=== PATIENT | male | born 1965 | race Caucasian/White ===

== ENCOUNTER 2021-11-08 17:20 | Inpatient (IN) | payer MEDICARE, SELFPAY ==
[2021-11-08] VITALS (11 sets, daily range): BP systolic 109–146; BP diastolic 75–88; PULSE 64–73; RESP 18–38; TEMP 36.6–37.3; O2SAT 86–93; BMI 45.1; BMI 40.8
--- NOTE | 2021-11-08 17:54 | RAD_ITS ---
STUDY: X-RAY CHEST REASON FOR EXAM: Male, 56 years old. CHEST PAIN sob TECHNIQUE: XR Chest 1 View COMPARISON: Prior comparison studies are not available for review at this time. FINDINGS: There are bilateral pleural effusions. There are bilateral infiltrates. Normal size heart. Normal mediastinum and shiv. Normal visualized pulmonary arteries. Normal visualized aortic arch and descending thoracic aorta. There are diffuse degenerative changes of the visualized thoracic spine. There is degenerative osteoarthritis of the bilateral shoulders. There is no demonstrated abnormality of the visualized soft tissue structures of the upper abdomen. RAD/Chest 1 View (Portable) IMPRESSION: Bilateral pneumonia. Electronically Signed: Kenneth Eaton MD at 19:35 EST , Service support ,
--- NOTE | 2021-11-08 17:54 | EKG12_ITS ---
Test Reason : SOB Blood Pressure : / mmHG Vent. Rate : 072 BPM Atrial Rate : 072 BPM P-R Int : 156 ms QRS Dur : 156 ms QT Int : 438 ms P-R-T Axes : 015 -26 -18 degrees QTc Int : 479 ms Normal sinus rhythm Right bundle branch block Voltage criteria for left ventricular hypertrophy Abnormal ECG Confirmed by SRIDHAR RAGLAND, JOSE MIGUEL ([id number]), department editor ROCK RYAN ([id number]) on 11/11/2021 9:19:49 AM Referred By: MIRANDA Confirmed By:JOSE MIGUEL WALLER MD
--- NOTE | 2021-11-08 17:55 | EX.ED.DYSGE1 ---
HPI History of Present Illness Chief Complaint: Shortness of Breath Informant: patient Narrative Narrative: Patient reports going to his PCPs office today for routine checkup. He does report having a head cold for the past 3 weeks. When at his doctor's office he was noted to be hypoxic and patient was transferred here for evaluation by marianna. He was satting 86% on room air here, 90% on 3 L nasal cannula. He has had a mild cough with brown-colored sputum production. No fever or chills. He denies chest pain. He denies any known Covid exposures and states he did not get the Covid vaccine. [facility] Medical History Arthritis Hay fever HTN (hypertension) Home Medications lisinopril 10 mg-hydrochlorothiazide 12.5 mg tablet 1 tab PO BID 12/14/17 [History Last Taken Unknown] Allergy/AdvReac Type Severity Reaction Status Date / Time grass pollen Allergy Unknown Verified 11/09/21 00:19 tree and shrub pollen Allergy Unknown Verified 11/09/21 00:19 Social History Smoking Status: Never smoker alcohol intake: never ROS ROS ED Constitutional Constitutional ED: Denies chills or fever(s) Eyes Eyes: Denies change in vision ENT ENT ED: Reports other Details: Congestion ; Denies sore throat Cardiovascular Cardiovascular: Denies chest pain Respiratory/Chest Respiratory/Chest: Reports cough, dyspnea and sputum Gastrointestinal Gastrointestinal: Denies abdominal pain, diarrhea, nausea or vomiting Genitourinary Genitourinary ED: Denies dysuria Musculoskeletal Musculoskeletal: Denies back pain Integumentary Denies rash Neurologic Neurologic: Denies headache(s) or weakness Allergic/Immunologic Allergic/Immunologic ED: Denies urticaria EXAM Physical Exam Const Vital Signs: 11/08/21 17:20 11/08/21 18:04 11/08/21 19:52 Temperature 98.2 F Temperature Source Oral Pulse Rate 73 72 Respiratory Rate 18 38 H Respiratory Effort Short of Breath Respiratory Pattern Tachypnea Blood Pressure 146/88 H 130/87 H Blood Pressure Mean 107 101 Pulse Ox 86 92 91 Oxygen Delivery Method Room Air Nasal Cannula Nasal Cannula Oxygen Flow Rate (L/min) 2 6 11/08/21 19:56 11/08/21 19:57 11/08/21 21:00 Temperature Temperature Source Pulse Rate 70 64 Respiratory Rate 26 H 26 H Respiratory Effort Respiratory Pattern Blood Pressure 131/83 H 121/82 H Blood Pressure Mean 99 95 Pulse Ox 91 92 91 Oxygen Delivery Method High Flow High Flow High Flow Oxygen Flow Rate (L/min) 8 8 8 Positive obese Nutritional Appearance: obese HEENT Reports moist mucous membranes Eyes PERRL and EOMs intact bilaterally Neck supple Chest Wall inspection of chest normal and palpation of chest normal Resp Resp Narrative: Tachypnea Auscultation: diminished lung sounds Cardio regular rate and regular rhythm GI non-tender Palpation: soft Extremity normal to inspection General Extremety ED: Negative for edema General Extremity: Negative for edema Neuro oriented x3 Sensorium / Orientation: alert Skin no rashes or lesions noted MDM MDM MDM Narrative Medical decision making narrative: Patient is on 3 L nasal cannula time of my initial exam. Chest x-ray, EKG, lab work, rapid Covid test obtained. Lab Data Attestation: I reviewed the patient's lab results. Labs: Laboratory Results - last 24 hr 11/08/21 11/08/21 11/08/21 17:55 17:55 17:55 WBC 7.8 RBC 5.11 Hgb 14.2 Hct 42.1 MCV 82.4 MCH 27.8 MCHC 33.7 RDW Std Deviation 37.1 RDW Coeff of Ifeoma 12.2 Plt Count 280 MPV 8.8 Immature Gran % (Auto) 4.900 H Neut % (Auto) 83.1 H Lymph % (Auto) 7.4 L [place] % (Auto) 4.2 Eos % (Auto) 0.0 Baso % (Auto) 0.4 Absolute Neuts (auto) 6.5 Absolute Lymphs (auto) 0.58 L Nucleated RBC % 0 Differential Comment SEE COMMENT Atypical Lymphocytes RARE Platelet Estimate ADEQUATE RBC Morphology N CHROM Anisocytosis RARE D-Dimer Quant (PE/DVT) 5.26 H* Sodium 134 L Potassium 3.6 Chloride 100 Carbon Dioxide 26.0 Anion Gap 8 BUN 15 Creatinine 0.71 Estim Creat Clear Calc 125.21 Est GFR (MDRD) Af Amer 148 Est GFR (MDRD) Non-Af 122 BUN/Creatinine Ratio 21.2 H Glucose 120 H Lactic Acid Calcium 8.6 Total Bilirubin 0.70 Direct Bilirubin 0.33 H AST 57 H ALT 29 Alkaline Phosphatase 69 Troponin I High Sens 14 Total Protein 7.4 Albumin 2.5 L Globulin 4.9 H COVID-19 (BOGDAN) 11/08/21 11/08/21 17:55 19:14 WBC RBC Hgb Hct MCV MCH MCHC RDW Std Deviation RDW Coeff of Ifeoma Plt Count MPV Immature Gran % (Auto) Neut % (Auto) Lymph % (Auto) [place] % (Auto) Eos % (Auto) Baso % (Auto) Absolute Neuts (auto) Absolute Lymphs (auto) Nucleated RBC % Differential Comment Atypical Lymphocytes Platelet Estimate RBC Morphology Anisocytosis D-Dimer Quant (PE/DVT) Sodium Potassium Chloride Carbon Dioxide Anion Gap BUN Creatinine Estim Creat Clear Calc Est GFR (MDRD) Af Amer Est GFR (MDRD) Non-Af BUN/Creatinine Ratio Glucose Lactic Acid 1.4 Calcium Total Bilirubin Direct Bilirubin AST ALT Alkaline Phosphatase Troponin I High Sens Total Protein Albumin Globulin COVID-19 (BOGDAN) Detected Rapid Covid: Negative Radiography Chest X-Ray - ED: 1 View, Read by ED Physician, Right Infiltrate and Left Infiltrate Diagnostic Testing: Clinical Impression(s) from Imaging Studies Chest X-Ray 11/08/21 17:54 IMPRESSION: Bilateral pneumonia. Electronically Signed: Kenneth Eaton MD at 19:35 EST , Service support , Chest CTA 11/08/21 19:04 IMPRESSION: 1. No demonstrated pulmonary embolism or arterial dissection. 2. There is bilateral pneumonia. Electronically Signed: Kenneth Eaton MD at 20:04 EST , Service support , EKG Initial EKG: Attestation: I personally reviewed and interpreted this EKG as follows: Interpretation: Sinus Rhythm (Sinus at 72 with right bundle branch block. No acute ischemia.) Treatment and Re-Evaluation Comments:: Patient's lab work reviewed. White count is normal. D-dimer elevated at 5.26. Chemistry studies unremarkable. Lactic acid normal at 1.4. Chest x-ray reveals significant bilateral infiltrates. Although rapid Covid test came back negative I am still suspicious this is Covid. PCR test is sent. CTA of the chest reveals bilateral pneumonia with no evidence of PE. Patient discussed with hospitalist for admission. He is currently requiring 8 L nasal cannula to maintain his O2 sats above 90%. Just before going to the floor patient's Covid test does return positive. Discharge Plan Dx/Rx/DC Orders Clinical Impression: Pneumonia, Respiratory failure, COVID-19 Disposition Disposition: Acute Care Hospital [facility] Discharge Date/Time: 11/08/21 22:42
[2021-11-08 18:12] LABS: Absolute Lymphocyte Count 0.58 X10^3/uL (0.83-4.51); Absolute Neutrophil Count 6.5 X10^3/uL (2.0-7.7); Basophil# 0.03 X10^3/uL; Basophil% 0.4 % (0-1); Hematocrit 42.1 % (40-54); Hemoglobin 14.2 g/dL (13.0-16.5); Lymphocyte # 0.58 X10^3/ul (0.83-4.51); Lymphocyte % 7.4 % (19-41); Mean Corp Hgb Conc 33.7 g/dL (32-36); Mean Corpuscular Hgb 27.8 pg (27.0-32.0); Mean Corpuscular Volume 82.4 fL (80-94); Mean Platelet Vol. 8.8 fl (6.2-12.0); Monocyte# 0.33 X10^3/uL; Monocyte% 4.2 % (0-10); NRBC Flagged by Analyzer 0 % (0-5); Neutrophil # 6.49 X10^3/uL (2.7-7.7); Neutrophil % 83.1 % (47-70); POSITIVE DIFFERENTIAL YES; POSITIVE MORPHOLOGY YES; Platelet Count 280 K/mm3 (150-450); RBC Distribution Width CV 12.2 % (11.6-14.6); RBC Distribution Width SD 37.1 fl (35.1-43.9); Red Blood Count 5.11 M/mm3 (4.6-6.2); White Blood Count 7.8 K/mm3 (4.4-11.0)
[2021-11-08 18:25] LABS: Differential Indicated SCAN CRITERIA MET
[2021-11-08 18:29] LABS: AST(SGOT) 57 U/L (15-37); Alanine Aminotransfer ALT/SGPT 29 U/L (16-61); Albumin, Serum 2.5 g/dL (3.2-5.0); Alkaline Phosphatase 69 U/L (45-117); Anion Gap 8 (5-15); BUN 15 mg/dL (7-18); BUN/Creat Ratio 21.2 RATIO (10-20); Bilirubin, Direct 0.33 mg/dL (0.00-0.30); Calcium,Total 8.6 mg/dL (8.5-10.1); Chloride 100 mmol/L (98-107); Creatinine, Serum 0.71 mg/dL (0.70-1.30); EST Glomerular Filtration Rate 122 mL/min (>60); Est Glom Filt Rate - Afr Amer 148 mL/min (>60); Estimated Creatinine Clearance 125.21 ml/min; Globulin 4.9 g/dL (2.2-4.2); Glucose 120 mg/dL (74-106); Potassium 3.6 mmol/L (3.5-5.1); Protein, Total 7.4 g/dL (6.4-8.2); Sodium Level 134 mmol/L (136-145); Troponin-I HS 14 pg/mL (3.0-78.0)
[2021-11-08 18:42] LABS: Anisocytosis RARE; Atypical Lymphocyte RARE %; Platelet Estimate ADEQUATE (ADEQ); Red Cell Morphology N CHROM NORMAL (NORM C&C)
[2021-11-08 18:43] LABS: Lactic Acid 1.4 mmol/L (0.4-1.9)
[2021-11-08 19:03] LABS: D-Dimer Quantitative (DVT/PE) 5.26 FEU/ug/m (0.27-0.49)
--- NOTE | 2021-11-08 19:04 | CT_ITS ---
EXAM: CT ANGIOGRAPHY CHEST WITHOUT AND WITH INTRAVENOUS CONTRAST CLINICAL INDICATION: hypoxia TECHNIQUE: Helically acquired angiography images were obtained of the chest without and with intravenous contrast. This CT exam was performed using one or more of the following dose reduction techniques: automated exposure control, adjustment of the mA and/or kV according to patient size, and/or use of iterative reconstruction technique. This report was created using [employer] report generation technology. MIP reconstructed images were created and reviewed. CONTRAST: IV 100mL [id number] COMPARISON: None. FINDINGS: PULMONARY ARTERIES: No demonstrated pulmonary embolism or arterial dissection. AORTA: Unremarkable. Normal in caliber. No evidence of dissection. GREAT VESSELS OF AORTIC ARCH: Unremarkable. Normal in caliber. No evidence of dissection. LUNGS AND PLEURAL SPACES: There is bilateral pneumonia. No mass. No pleural effusion or thickening. HEART: Unremarkable. Heart size is normal. No pericardial effusion. No signs of right heart strain, ratio of right ventricle to left ventricle measures less than 1. MEDIASTINUM: Unremarkable. No mediastinal or hilar adenopathy. Esophagus is unremarkable. No hiatal hernia. THYROID: Unremarkable. No thyroid lesions. BONES/JOINTS: There are degenerative findings of the thoracic spine. No suspicious lytic or blastic abnormality. KIDNEYS AND URETERS: Simple cyst of the left kidney. No follow-up required. CT/CTA Chest W/WO Contrast IMPRESSION: 1. No demonstrated pulmonary embolism or arterial dissection. 2. There is bilateral pneumonia. Electronically Signed: Kenneth Eaton MD at 20:04 EST , Service support ,
--- NOTE | 2021-11-08 21:13 | PCM.HP.STD ---
HPI - General HPI Narrative PIERRE CUEVAS, is a 56 M who presents to the emergency room sent by squad from my office due to hypoxia. Patient had an appointment with me at 430 this afternoon and was requesting at that time to be released to return to work after having cold symptoms for the past 2 to 3 weeks. The patient is unvaccinated to COVID-19 virus and denied feeling fever or chills, chest pain or shortness of breath at the time I evaluated him. His pulse ox saturation on room air was 81% and would only come up to 87% with 4 L by nasal cannula. This surprised the patient however we agreed to transport him by squad since he had driven himself to my office. Upon arrival in the emergency room he was found also to be hypoxic despite nasal oxygen and chest x-ray revealed bilateral pneumonia consistent with COVID-19 virus. Initial rapid assay was negative however, a PCR test is pending at the time of my evaluation. Further history reveals the patient did lose taste and smell several days ago but states it had returned. The patient remains confused by all of this since he does not feel very short of breath at the present time. The patient is also concerned since he does not have health insurance at this time. [facility] Medical History Arthritis Hay fever HTN (hypertension) Home Medications lisinopril 10 mg-hydrochlorothiazide 12.5 mg tablet 1 tab PO BID 12/14/17 [History Last Taken Unknown] Allergy/AdvReac Type Severity Reaction Status Date / Time grass pollen Allergy Unknown Verified 12/14/17 06:35 tree and shrub pollen Allergy Unknown Verified 12/14/17 06:35 Social History Smoking Status: Never smoker alcohol intake: never ROS Constitutional Constitutional: Denies chills, fever(s) or weakness Eyes Eyes: Denies blurry vision ENT HEENT: Reports loss taste/smell; Denies abnormal hearing Cardiovascular Cardiovascular: Denies chest pain Respiratory/Chest Respiratory/Chest: Reports shortness of breath with exertion and wheezing Gastrointestinal Gastrointestinal: Denies abdominal pain Genitourinary Genitourinary: Denies dysuria Musculoskeletal Musculoskeletal: Denies back pain Neurologic Neurologic: Denies abnormal gait Psychiatric Psychiatric: Reports anxiety Vital Signs Vital Signs Vital Signs: 11/08/21 17:20 11/08/21 18:04 11/08/21 19:52 Temperature 98.2 F Temperature Source Oral Pulse Rate 73 72 Respiratory Rate 18 38 H Respiratory Effort Short of Breath Respiratory Pattern Tachypnea Blood Pressure 146/88 H 130/87 H Blood Pressure Mean 107 101 Pulse Ox 86 92 91 Oxygen Delivery Method Room Air Nasal Cannula Nasal Cannula Oxygen Flow Rate (L/min) 2 6 11/08/21 19:56 11/08/21 19:57 Temperature Temperature Source Pulse Rate 70 Respiratory Rate 26 H Respiratory Effort Respiratory Pattern Blood Pressure 131/83 H Blood Pressure Mean 99 Pulse Ox 91 92 Oxygen Delivery Method High Flow High Flow Oxygen Flow Rate (L/min) 8 8 Weight Weight: 323 lb 6.69 oz Body Mass Index (BMI) 45.1 Physical Exam Const alert, oriented x3 and no apparent distress General Appearance: cooperative HEENT normocephalic and head/scalp atraumatic Eyes PERRL and EOMs intact bilaterally Neck supple Lymph Lymphatic: no lymphadenopathy noted Resp Auscultation: diminished lung sounds Cardio regular rate, regular rhythm, S1 normal heart sound and S2 normal heart sound Rate: tachycardic GI normal to inspection, nondistended, normoactive bowel sounds Extremity no clubbing, cyanosis or edema Skin General Skin Exam: turgor normal Neuro CN's II-XII intact bilaterally Psych affect normal Results Lab / Micro Data Result Diagrams: 11/08/21 17:55 11/08/21 17:55 Labs: Laboratory Results - last 24 hr 11/08/21 17:55: WBC 7.8, RBC 5.11, Hgb 14.2, Hct 42.1, MCV 82.4, MCH 27.8, MCHC 33.7, RDW Std Deviation 37.1, RDW Coeff of Ifeoma 12.2, Plt Count 280, MPV 8.8, Immature Gran % (Auto) 4.900 H, Neut % (Auto) 83.1 H, Lymph % (Auto) 7.4 L, [place] % (Auto) 4.2, Eos % (Auto) 0.0, Baso % (Auto) 0.4, Absolute Neuts (auto) 6.5, Absolute Lymphs (auto) 0.58 L, Nucleated RBC % 0, Differential Comment SEE COMMENT, Atypical Lymphocytes RARE, Platelet Estimate ADEQUATE, RBC Morphology N CHROM, Anisocytosis RARE 11/08/21 17:55: D-Dimer Quant (PE/DVT) 5.26 H* 11/08/21 17:55: Sodium 134 L, Potassium 3.6, Chloride 100, Carbon Dioxide 26.0, Anion Gap 8, BUN 15, Creatinine 0.71, Estim Creat Clear Calc 125.21, Est GFR (MDRD) Af Amer 148, Est GFR (MDRD) Non-Af 122, BUN/Creatinine Ratio 21.2 H, Glucose 120 H, Calcium 8.6, Total Bilirubin 0.70, Direct Bilirubin 0.33 H, AST 57 H, ALT 29, Alkaline Phosphatase 69, Troponin I High Sens 14, Total Protein 7.4, Albumin 2.5 L, Globulin 4.9 H 11/08/21 17:55: Lactic Acid 1.4 Micro: Microbiology 11/08/21 17:55 Nasal Secretion SARS-CoV-2 Antigen (Rapid) - Final Radiology Impression Chest X-Ray 11/08/21 17:54 IMPRESSION: Bilateral pneumonia. Electronically Signed: Kenneth Eaton MD at 19:35 EST , Service support , Chest CTA 11/08/21 19:04 IMPRESSION: 1. No demonstrated pulmonary embolism or arterial dissection. 2. There is bilateral pneumonia. Electronically Signed: Kenneth Eaton MD at 20:04 EST , Service support , Assessment & Plan Assessment/Plan (1) Pneumonia: (2) Respiratory failure: PLAN: 1 pneumonia?admit patient to general medical floor suspect COVID-19 due to x-ray pattern, PCR is pending rapid test was negative. Repeat CBC BMP in the morning. If PCR test returns negative would start IV antibiotics to cover bacterial causes of pneumonia. We will continue patient in isolation for no. At this point I will not order further broad range testing as clinically the patient is stable and he does not have insurance and did not wish to further his financial burden. 2. Respiratory failure?continue oxygen supportive therapy at this time, proair inhaler every 4 hours as needed shortness of breath and will start Decadron 3. DVT prophylaxis?low molecular weight heparin Charges/Coding Visit Charges Inpatient E&M: 52827 Init Hosp L3
[2021-11-08] MEDS: dexAMETHasone 2 MG TABLET 6 MG PO (23:27)
[2021-11-08] MEDS: Enoxaparin 40 MG/0.4 ML Syringe SC (23:27)
[2021-11-09] VITALS (17 sets, daily range): BP systolic 117–142; BP diastolic 76–86; PULSE 59–88; RESP 18–20; TEMP 36.4–36.6; O2SAT 2–96
--- NOTE | 2021-11-09 02:02 | NURSING ---
Pt encourage to roll from side to side or prone. Pt says he understands but when this nurse comes to room. Pt is on his back.
[2021-11-09 07:25] LABS: Absolute Lymphocyte Count 0.54 X10^3/uL (0.83-4.51); Absolute Neutrophil Count 6.3 X10^3/uL (2.0-7.7); Basophil# 0.02 X10^3/uL; Basophil% 0.3 % (0-1); Hemoglobin 13.5 g/dL (13.0-16.5); Lymphocyte # 0.54 X10^3/ul (0.83-4.51); Lymphocyte % 7.4 % (19-41); Mean Corp Hgb Conc 33.8 g/dL (32-36); Mean Corpuscular Volume 82.8 fL (80-94); Mean Platelet Vol. 9.1 fl (6.2-12.0); Monocyte# 0.23 X10^3/uL; Monocyte% 3.1 % (0-10); NRBC Flagged by Analyzer 0 % (0-5); Neutrophil # 6.31 X10^3/uL (2.7-7.7); Neutrophil % 86.1 % (47-70); POSITIVE DIFFERENTIAL YES; POSITIVE MORPHOLOGY YES; Platelet Count 244 K/mm3 (150-450); RBC Distribution Width CV 12.2 % (11.6-14.6); RBC Distribution Width SD 37.1 fl (35.1-43.9); Red Blood Count 4.83 M/mm3 (4.6-6.2); White Blood Count 7.3 K/mm3 (4.4-11.0)
[2021-11-09 07:32] LABS: Differential Indicated SCAN CRITERIA MET
[2021-11-09 07:54] LABS: Anion Gap 6 (5-15); BUN 14 mg/dL (7-18); BUN/Creat Ratio 19.1 RATIO (10-20); Calcium,Total 8.3 mg/dL (8.5-10.1); Chloride 100 mmol/L (98-107); Creatinine, Serum 0.73 mg/dL (0.70-1.30); EST Glomerular Filtration Rate 118 mL/min (>60); Est Glom Filt Rate - Afr Amer 142 mL/min (>60); Estimated Creatinine Clearance 129.21 ml/min; Glucose 144 mg/dL (74-106); Potassium 3.9 mmol/L (3.5-5.1); Sodium Level 136 mmol/L (136-145)
[2021-11-09 08:46] LABS: Differential Comment SCANNED; Reactive Lymphocyte 1+
[2021-11-09] MEDS: Lisinopril 10 MG Tablet PO ×2 (08:47→19:57)
[2021-11-09] MEDS: Enoxaparin 40 MG/0.4 ML Syringe SC (08:47)
[2021-11-09] MEDS: hydroCHLOROthiazide 12.5mg 12.5 MG PO ×2 (08:47→19:57)
[2021-11-09] MEDS: dexAMETHasone 2 MG TABLET 6 MG PO (08:47)
--- NOTE | 2021-11-09 12:54 | PN.HOSP_ITS ---
Documented by User: Pierre BRAY 11/09/21 13:01 Subjective Subjective Patient is a 56-year-old male comfortably resting in bed, alert and orient x3. Patient reports slight improvement in shortness of breath for admission, although still on air Vo. Denies development of any new symptoms overnight. Does not appear in acute distress. Objective Data Objective Data Vital Signs: Vital Signs Temp Pulse Resp BP Pulse Ox 97.6 F L 67 18 142/82 H 90 11/09/21 07:58 11/09/21 11:55 11/09/21 07:58 11/09/21 07:58 11/09/21 11:24 Oxygen Flow Rate (L/min) 55 Oxygen Delivery Method Airvo Weight: 309 lb 15.519 oz Body Mass Index (BMI) 40.8 Intake & Output: Intake and Output for Last 24 Hours 11/07/21 11/08/21 11/09/21 23:59 23:59 23:59 Intake Total 240 / 240 Balance 240 / 240 Medical Nutrition Assessment Dietitian: Malnutrition Criteria Met Start: 11/09/21 12:51 Freq: Status: Active Protocol: Document 11/09/21 12:51 AG (Rec: 11/09/21 12:51 AG [id number]) Nutrition Malnutrition Evidence of Malnutrition Exists Yes Malnutrition (moderate): Acute Illness/Injury Evidenced By Suboptimal Energy Intake ( Moderate),Weight Loss ( Moderate) Clinical Problem Acute Disease or Injury Related Malnutrition Etiology moderate, acute malnutrition r /t inadequate energy intake d/ t COVID illness Signs/Symptoms as evidenced by estimated PO intake meeting <75% of estimated energy needs >1 week , unintentional 11#/3.4% wt loss x 2 weeks Status Active Problem Recommendation Dietitian Recommendations/Changes continue regular diet as tolerated; ensure compact w/ meals if PO intake declines Lab / Micro Data Result Diagrams: 11/09/21 07:10 11/09/21 07:10 Labs: Laboratory Results - last 24 hr 11/08/21 17:55: WBC 7.8, RBC 5.11, Hgb 14.2, Hct 42.1, MCV 82.4, MCH 27.8, MCHC 33.7, RDW Std Deviation 37.1, RDW Coeff of Ifeoma 12.2, Plt Count 280, MPV 8.8, Immature Gran % (Auto) 4.900 H, Neut % (Auto) 83.1 H, Lymph % (Auto) 7.4 L, [place] % (Auto) 4.2, Eos % (Auto) 0.0, Baso % (Auto) 0.4, Absolute Neuts (auto) 6.5, Absolute Lymphs (auto) 0.58 L, Nucleated RBC % 0, Differential Comment SEE COMMENT, Atypical Lymphocytes RARE, Platelet Estimate ADEQUATE, RBC Morphology N CHROM, Anisocytosis RARE 11/08/21 17:55: D-Dimer Quant (PE/DVT) 5.26 H* 11/08/21 17:55: Sodium 134 L, Potassium 3.6, Chloride 100, Carbon Dioxide 26.0, Anion Gap 8, BUN 15, Creatinine 0.71, Estim Creat Clear Calc 125.21, Est GFR (MDRD) Af Amer 148, Est GFR (MDRD) Non-Af 122, BUN/Creatinine Ratio 21.2 H, Glucose 120 H, Calcium 8.6, Total Bilirubin 0.70, Direct Bilirubin 0.33 H, AST 57 H, ALT 29, Alkaline Phosphatase 69, Troponin I High Sens 14, Total Protein 7.4, Albumin 2.5 L, Globulin 4.9 H 11/08/21 17:55: Lactic Acid 1.4 11/08/21 19:14: COVID-19 (BOGDAN) Detected 11/09/21 07:10: WBC 7.3, RBC 4.83, Hgb 13.5, Hct 40.0, MCV 82.8, MCH 28.0, MCHC 33.8, RDW Std Deviation 37.1, RDW Coeff of Ifeoma 12.2, Plt Count 244, MPV 9.1, Immature Gran % (Auto) 3.100 H, Neut % (Auto) 86.1 H, Lymph % (Auto) 7.4 L, [place] % (Auto) 3.1, Eos % (Auto) 0.0, Baso % (Auto) 0.3, Absolute Neuts (auto) 6.3, Absolute Lymphs (auto) 0.54 L, Nucleated RBC % 0, Differential Comment SCANNED, Reactive Lymphocytes 1+ 11/09/21 07:10: Sodium 136, Potassium 3.9, Chloride 100, Carbon Dioxide 30.0, Anion Gap 6, BUN 14, Creatinine 0.73, Estim Creat Clear Calc 129.21, Est GFR (MDRD) Af Amer 142, Est GFR (MDRD) Non-Af 118, BUN/Creatinine Ratio 19.1, Glucose 144 H, Calcium 8.3 L Micro: Microbiology 11/08/21 17:55 Nasal Secretion SARS-CoV-2 Antigen (Rapid) - Final Radiography Diagnostic Testing: Radiology Impression Chest X-Ray 11/08/21 17:54 IMPRESSION: Bilateral pneumonia. Electronically Signed: Kenneth Eaton MD at 19:35 EST , Service support , Chest CTA 11/08/21 19:04 IMPRESSION: 1. No demonstrated pulmonary embolism or arterial dissection. 2. There is bilateral pneumonia. Electronically Signed: Kenneth Eaton MD at 20:04 EST , Service support , Physical Exam Const alert, oriented x3 and no apparent distress HEENT head/scalp atraumatic and moist oral mucous membranes Head and Scalp: normocephalic Eyes PERRL, EOMs intact bilaterally and conjunctivae normal Neck no lymphadenopathy, supple and no JVD Resp Resp Narrative: Satting 90% on air-vo at 50 L/min Effort and Inspection: labored Auscultation: wheezes Cardio regular rate, regular rhythm, no murmurs and no JVD GI normal to inspection, nondistended, normoactive bowel sounds, soft to palpation and non-tender Extremity normal to inspection, full ROM and no clubbing, cyanosis or edema Skin no rashes or lesions noted, no wounds, skin turgor normal and no jaundice Neuro CN's II-XII intact bilaterally Psych affect normal Assessment & Plan Assessment/Plan (1) COVID-19: (2) Respiratory failure: PLAN: Day 1 Discharge planning: Patient to be discharged home when medically ready. 1) acute hypoxic respiratory failure secondary to COVID-19 infection Patient still requiring air Vo at 50 L/min to set at 90%, patient does report slight improvement in shortness of breath. Covid PCR is positive. CTA does not demonstrate any evidence of PE or arterial dissection, but does show bilateral pneumonia consistent with COVID-19 infection. Viral respiratory panel negative. Blood cultures ordered/pending. Patient is unvaccinated. Patient not initiated on remdesivir due to length of infection. Plan; continue Decadron, continue oxygen supplementation via air Vo, wean oxygen as tolerated. 2) HTN Stable, continue lisinopril and hydrochlorothiazide. DVT prophylaxis - Lovenox Patient seen by Pierre Salas PA-C, under the supervision of Dr. Sigala. Documented by User: Dr. Davion Sigala MD 11/09/21 13:37 Objective Data Lab / Micro Data Result Diagrams: 11/09/21 07:10 11/09/21 07:10 Assessment & Plan Addt'l Comments This patient was seen in conjunction with Pierre Salas PA-C. I have independently interviewed and examined the patient and reviewed pertinent historical, laboratory, and other data. Please refer to Pierre Salas PA-C's note for details of this patient's presentation, findings, and recommendations. I have reviewed Pierre Salas PA-C's note and concur with documented findings. In brief, patient is a 56-year-old gentleman unvaccinated against COVID-19 presented with progressive shortness of breath. An assessment of acute hypoxic respiratory failure secondary to COVID-19 pneumonia made admitted to a monitored bed for subsequent management Physical Examination: GENERAL: Dyspneic at rest HEENT: Atraumatic; EYES; Anicteric, Normal Conjunctiva NECK; supple, normal thyroid, RESPIRATORY: Diminished to auscultation CARDIOVASCULAR: Regular S1 S2, GI: soft, normoactive bowel sounds, : No Renal angle tenderness; EXTREMITIES: No edema, no clubbing, MUSCULOSKELETAL: no muscle waisting NEURO: Awake; no lateralizing signs. SKIN: No Rash PSYCH; Flat affect Assessment: 1. Acute hypoxic respiratory failure 2. COVID-19 pneumonia 3. Essential potential 4. Obesity with BMI of 40.9 5. DVT prophylaxis Recommendations: 1. I have discussed the results of my overview and impressions with the patient 2. Options for management were reviewed Charges/Coding Visit Charges Inpatient E&M: 75135 Subs Hosp L3
--- NOTE | 2021-11-09 15:00 | CASEMGMT ---
RN CM Assessment: Face to Face with patient for initial transition planning/care coordination assessment. Patient alert and oriented, sitting up in chair with AirVo in place, no apparent distress. CCM introduced self and role at [facility]. Care providers, pharmacy, and demographics verified. PCP: [facility] Specialists: None [facility] Insurance: Self pay. Message left with Patient [employer] to add patient to uninsured COVID list. Prescription Benefit: no Living Will/HPOA: Patient does not have LW or HPOA. LNOK: Significant other- Amanda Cee Living Arrangements: Patient lives with girlfriend of 15 years in two story house with 4 steps to enter with railing. Patient states independent with ADLs prior to hospitalization. 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 Social: former smoker (quit over 10 years ago), denies ETOH use Transportation: Patient drives self and denies needs with transportation. DME/HHC: Patient has walker and cane in home that used to belong to mother. Patient ambulates without assistive device. Denies other DME in home. Denies previous HHC or SNF stays. Patient first tested positive for COVID at [facility] on 11/08. Reports has had cold-like symptoms x 3 weeks. Live-in girlfriend, Amanda, is not ill but will quarantine. Patient states he has a friend that would be available to bring groceries to home. Patient has no preference for DME company if home oxygen needed at discharge. Pt states no concerns with going home at time of dc. Pt states no further concerns/needs. CM to follow. Advised pt to ask CM if any further question/concerns/needs arise, voices understanding. Plan: home
[2021-11-09] MEDS: INHALER, ASSIST DEVICES 1 EACH SPACER INHALATION (19:58)
--- NOTE | 2021-11-09 20:45 | NURSING ---
pT LAYING ON LEFT SIDE 02 AT 12LNC . iNCREASED 02 TO 14L. wILL MONITOR
[2021-11-10] VITALS (25 sets, daily range): BP systolic 76–126; BP diastolic 39–75; PULSE 55–68; RESP 20–40; TEMP 35.6–36.9; O2SAT 82–98
--- NOTE | 2021-11-10 01:04 | NURSING ---
This RN taking over care of pt at this time. Report received from Rita [facility].
--- NOTE | 2021-11-10 01:05 | PCS.PANDOC ---
PANDEMIC DOCUMENTATION INITIATED: Date: 06/28/2021 Time: 190
[2021-11-10 06:32] LABS: Absolute Lymphocyte Count 0.76 X10^3/uL (0.83-4.51); Absolute Neutrophil Count 8.7 X10^3/uL (2.0-7.7); Basophil# 0.02 X10^3/uL; Basophil% 0.2 % (0-1); Eosinophil# 0.01 X10^3/uL; Eosinophils% 0.1 % (0-5); Hemoglobin 13.1 g/dL (13.0-16.5); Lymphocyte # 0.76 X10^3/ul (0.83-4.51); Lymphocyte % 7.3 % (19-41); Mean Corp Hgb Conc 33.6 g/dL (32-36); Mean Corpuscular Hgb 27.9 pg (27.0-32.0); Mean Corpuscular Volume 83.2 fL (80-94); Mean Platelet Vol. 9.1 fl (6.2-12.0); Monocyte# 0.41 X10^3/uL; Monocyte% 3.9 % (0-10); NRBC Flagged by Analyzer 0 % (0-5); Neutrophil % 83.9 % (47-70); Platelet Count 295 K/mm3 (150-450); RBC Distribution Width CV 12.3 % (11.6-14.6); RBC Distribution Width SD 36.8 fl (35.1-43.9); Red Blood Count 4.69 M/mm3 (4.6-6.2); White Blood Count 10.4 K/mm3 (4.4-11.0)
[2021-11-10 06:55] LABS: ALB/GLOB Ratio 0.5 RATIO (0.9-2.4); AST(SGOT) 52 U/L (15-37); Alanine Aminotransfer ALT/SGPT 34 U/L (16-61); Albumin, Serum 2.3 g/dL (3.2-5.0); Alkaline Phosphatase 60 U/L (45-117); Anion Gap 10 (5-15); BUN 22 mg/dL (7-18); BUN/Creat Ratio 28.6 RATIO (10-20); Calcium,Total 8.2 mg/dL (8.5-10.1); Chloride 96 mmol/L (98-107); Creatinine, Serum 0.77 mg/dL (0.70-1.30); EST Glomerular Filtration Rate 111 mL/min (>60); Est Glom Filt Rate - Afr Amer 135 mL/min (>60); Globulin 4.7 g/dL (2.2-4.2); Glucose 122 mg/dL (74-106); Magnesium 2.8 mg/dL (1.6-2.6); Potassium 3.5 mmol/L (3.5-5.1); Sodium Level 133 mmol/L (136-145)
[2021-11-10] MEDS: dexAMETHasone 2 MG TABLET 6 MG PO (08:11)
[2021-11-10] MEDS: Enoxaparin 40 MG/0.4 ML Syringe SC (08:12)
[2021-11-10] MEDS: hydroCHLOROthiazide 12.5mg 12.5 MG PO ×2 (08:12→22:07)
--- NOTE | 2021-11-10 12:04 | PN.HOSP_ITS ---
Documented by User: Pierre BRAY 11/10/21 12:44 Subjective Subjective Patient is a 56-year-old male comfortably resting in a chair, alert and orient x3. Patient still requiring airvo at 50 L/min to maintain oxygen saturations. Denies development of any new symptoms overnight. Does not appear in acute distress. Objective Data Objective Data Vital Signs: Vital Signs Temp Pulse Resp BP Pulse Ox 98.4 F 66 20 H 103/75 94 11/10/21 08:00 11/10/21 08:00 11/10/21 08:00 11/10/21 08:00 11/10/21 08:00 Oxygen Flow Rate (L/min) 50 Oxygen Delivery Method Airvo Weight: 309 lb 15.519 oz Body Mass Index (BMI) 40.8 Intake & Output: Intake and Output for Last 24 Hours 11/08/21 11/09/21 11/10/21 23:59 23:59 23:59 Intake Total 1360 / 1360 240 / 240 Balance 1360 / 1360 240 / 240 Medical Nutrition Assessment Dietitian: Malnutrition Criteria Met Start: 11/09/21 12:51 Freq: Status: Active Protocol: Document 11/09/21 12:51 AG (Rec: 11/09/21 12:51 AG [id number]) Nutrition Malnutrition Evidence of Malnutrition Exists Yes Malnutrition (moderate): Acute Illness/Injury Evidenced By Suboptimal Energy Intake ( Moderate),Weight Loss ( Moderate) Clinical Problem Acute Disease or Injury Related Malnutrition Etiology moderate, acute malnutrition r /t inadequate energy intake d/ t COVID illness Signs/Symptoms as evidenced by estimated PO intake meeting <75% of estimated energy needs >1 week , unintentional 11#/3.4% wt loss x 2 weeks Status Active Problem Recommendation Dietitian Recommendations/Changes continue regular diet as tolerated; ensure compact w/ meals if PO intake declines Lab / Micro Data Result Diagrams: 11/10/21 06:05 11/10/21 06:05 Labs: Laboratory Results - last 24 hr 11/10/21 06:05: WBC 10.4, RBC 4.69, Hgb 13.1, Hct 39.0 L, MCV 83.2, MCH 27.9, MCHC 33.6, RDW Std Deviation 36.8, RDW Coeff of Ifeoma 12.3, Plt Count 295, MPV 9.1, Immature Gran % (Auto) 4.600 H, Neut % (Auto) 83.9 H, Lymph % (Auto) 7.3 L, [place] % (Auto) 3.9, Eos % (Auto) 0.1, Baso % (Auto) 0.2, Absolute Neuts (auto) 8.7 H, Absolute Lymphs (auto) 0.76 L, Nucleated RBC % 0 11/10/21 06:05: Sodium 133 L, Potassium 3.5, Chloride 96 L, Carbon Dioxide 27.0, Anion Gap 10, BUN 22 H, Creatinine 0.77, Estim Creat Clear Calc 122.50, Est GFR (MDRD) Af Amer 135, Est GFR (MDRD) Non-Af 111, BUN/Creatinine Ratio 28.6 H, Glucose 122 H, Calcium 8.2 L, Magnesium 2.8 H, Total Bilirubin 0.70, AST 52 H, ALT 34, Alkaline Phosphatase 60, Total Protein 7.0, Albumin 2.3 L, Globulin 4.7 H, Albumin/Globulin Ratio 0.5 L Micro: Microbiology 11/08/21 17:55 Nasal Secretion SARS-CoV-2 Antigen (Rapid) - Final Physical Exam Const alert, oriented x3 and no apparent distress HEENT head/scalp atraumatic and moist oral mucous membranes Head and Scalp: normocephalic Eyes PERRL, EOMs intact bilaterally and conjunctivae normal Neck no lymphadenopathy, supple and no JVD Resp Resp Narrative: Requiring air Vo at 50 L/min to maintain oxygen saturations at 90%. Effort and Inspection: respiratory distress and labored Auscultation: diminished lung sounds Cardio regular rate, regular rhythm, no murmurs and no JVD GI normal to inspection, nondistended, normoactive bowel sounds, soft to palpation and non-tender Extremity normal to inspection, full ROM and no clubbing, cyanosis or edema Skin no rashes or lesions noted, no wounds and skin turgor normal Neuro CN's II-XII intact bilaterally Psych affect normal Assessment & Plan Assessment/Plan (1) Respiratory failure: (2) COVID-19: PLAN: Day 2 Discharge planning: Patient to be discharged home when medically ready. 1) acute hypoxic respiratory failure secondary to COVID-19 infection Patient still requiring air Vo at 50 L/min to set at 90%, patient does report slight improvement in shortness of breath. Covid PCR is positive. CTA does not demonstrate any evidence of PE or arterial dissection, but does show bilateral pneumonia consistent with COVID-19 infection. Viral respiratory panel pending. Blood cultures ordered/pending. Patient is unvaccinated. Patient not initiated on remdesivir due to length of infection. Plan; continue Decadron, continue oxygen supplementation via air Vo, wean oxygen as tolerated, pulmonary medicine and infectious disease consult placed. 2) HTN Stable, continue lisinopril and hydrochlorothiazide. 3) hyponatremia Sodium currently 133, likely due to oral intake. Continue to monitor BMP. DVT prophylaxis - Lovenox Patient seen by Pierre Salas PA-C, under the supervision of Dr. Patton. Documented by User: Dr. Mike Patton MD 11/10/21 16:00 Subjective Subjective Patient on air Vo 50% FiO2 heart rate sinus rhythm. Respiratory rate 20 to 30/min Objective Data Lab / Micro Data Result Diagrams: 11/10/21 06:05 11/10/21 06:05 Physical Exam Narrative General: Alert, Oriented x3, Cooperative HEENT: Atraumatic, PERRLA, EOMI, Normocephalic Oral: No Gingival or Mucosal Lesions/ Ulcerations Neck: Supple, No JVD, Negative Carotid Bruits Lungs: Air entry diminished in bilateral lung bases. Bilateral fine expiratory rhonchi Cardiovascular: Regular rate, Regular Rhythm, Normal S1, Normal S2, No murmurs Abdomen: Bowel Sounds Present, Soft, Non Tender, Non-Distended : No renal angle tenderness. No suprapubic tenderness. Extremities: No edema, Capillary Refill Less than 3 Seconds Skin: No rashes, No breakdown Musculoskeletal: No Tenderness to Palpation of Joints or Extremities. ROM full Neurological: Cranial nerves II-XII grossly intact, DTR 2+/4. Psych/Mental Status: Normal Affect, Appropriate. Assessment & Plan Assessment/Plan (1) COVID-19: PLAN: This patient was seen in conjunction with KATARINA Gong. I have independently interviewed and examined the patient and reviewed pertinent history, examination findings, laboratory and plan of management. I have reviewed the note and agree with the documented findings with the few additional points. In brief, patient is admitted for acute hypoxic respiratory failure secondary to bilateral COVID-19 pneumonia. CTA does not show evidence of PE or arterial dissection but bilateral pneumonia viral. On dexamethasone. ID consult requested for baricitinib approval. Pulmonary consult as patient is on NIPPV, air Vo. Mild hyponatremia: Sodium 133. Other comorbidities as mentioned above I have discussed my assessment with KATARINA Gong and orders have been reviewed. Charges/Coding Visit Charges Inpatient E&M: 54611 Subs Hosp L2
[2021-11-10] MEDS: Calcium Carbonate 500 MG Tablet PO (16:36)
--- NOTE | 2021-11-10 21:35 | CPS ---
increased flow to 60l for low sat-
[2021-11-10] MEDS: Lisinopril 10 MG Tablet PO (22:07)
[2021-11-10] MEDS: guaiFENesin 1,200 MG Tablet 1200 MG PO (22:07)
[2021-11-11] VITALS (22 sets, daily range): BP systolic 89–121; BP diastolic 59–83; PULSE 53–76; RESP 14–40; TEMP 35.7–36.7; O2SAT 56–98
[2021-11-11] MEDS: INHALER, ASSIST DEVICES 1 EACH SPACER INHALATION (02:07)
--- NOTE | 2021-11-11 02:35 | CPS ---
pt refused bipap at this time
[2021-11-11 06:10] LABS: Absolute Lymphocyte Count 0.54 X10^3/uL (0.83-4.51); Absolute Neutrophil Count 9.4 X10^3/uL (2.0-7.7); Basophil# 0.01 X10^3/uL; Basophil% 0.1 % (0-1); Eosinophil# 0.06 X10^3/uL; Eosinophils% 0.6 % (0-5); Hematocrit 38.2 % (40-54); Hemoglobin 12.8 g/dL (13.0-16.5); Lymphocyte # 0.54 X10^3/ul (0.83-4.51); Mean Corp Hgb Conc 33.5 g/dL (32-36); Mean Corpuscular Hgb 27.5 pg (27.0-32.0); Mean Corpuscular Volume 82.2 fL (80-94); Monocyte# 0.32 X10^3/uL; NRBC Flagged by Analyzer 0 % (0-5); Neutrophil # 9.35 X10^3/uL (2.7-7.7); Neutrophil % 87.1 % (47-70); POSITIVE DIFFERENTIAL YES; Platelet Count 283 K/mm3 (150-450); Red Blood Count 4.65 M/mm3 (4.6-6.2); White Blood Count 10.7 K/mm3 (4.4-11.0)
[2021-11-11 06:24] LABS: Differential Indicated SCAN CRITERIA MET
[2021-11-11 06:53] LABS: ALB/GLOB Ratio 0.5 RATIO (0.9-2.4); AST(SGOT) 51 U/L (15-37); Alanine Aminotransfer ALT/SGPT 34 U/L (16-61); Albumin, Serum 2.3 g/dL (3.2-5.0); Alkaline Phosphatase 61 U/L (45-117); Anion Gap 8 (5-15); BUN 24 mg/dL (7-18); BUN/Creat Ratio 33.3 RATIO (10-20); Calcium,Total 8.2 mg/dL (8.5-10.1); Chloride 96 mmol/L (98-107); Creatinine, Serum 0.72 mg/dL (0.70-1.30); EST Glomerular Filtration Rate 120 mL/min (>60); Est Glom Filt Rate - Afr Amer 145 mL/min (>60); Estimated Creatinine Clearance 131.01 ml/min; Globulin 4.3 g/dL (2.2-4.2); Glucose 102 mg/dL (74-106); Potassium 3.4 mmol/L (3.5-5.1); Protein, Total 6.6 g/dL (6.4-8.2); Sodium Level 130 mmol/L (136-145)
--- NOTE | 2021-11-11 07:02 | NURSING ---
Pt desatted to 56% while getting up at the bedside to use the commode. This RN went into room, airvo was off pt. Put airvo and NRB on pt. Educated pt on possible need for BIPAP. Respiratory called.
[2021-11-11] MEDS: guaiFENesin 1,200 MG Tablet 1200 MG PO ×2 (09:00→21:35)
[2021-11-11] MEDS: Lisinopril 10 MG Tablet PO ×2 (09:00→21:36)
[2021-11-11] MEDS: dexAMETHasone 2 MG TABLET 6 MG PO (09:00)
[2021-11-11] MEDS: hydroCHLOROthiazide 12.5mg 12.5 MG PO ×2 (09:00→21:35)
[2021-11-11] MEDS: Enoxaparin 40 MG/0.4 ML Syringe SC ×2 (09:00→21:35)
--- NOTE | 2021-11-11 12:19 | PCM.PN.HOSP ---
Documented by User: Dejah Mays NP-C 11/11/21 12:33 Subjective Subjective Patient seen and examined. Patient lying in bed no distress noted. Patient currently on BiPAP. Objective Data Objective Data Vital Signs: Vital Signs Temp Pulse Resp BP Pulse Ox 96.6 F L 64 34 H 115/73 95 11/11/21 08:59 11/11/21 08:59 11/11/21 08:59 11/11/21 08:59 11/11/21 09:00 Oxygen Flow Rate (L/min) 15 Oxygen Delivery Method Bi-pap Weight: 309 lb 15.519 oz Body Mass Index (BMI) 40.8 Intake & Output: Intake and Output for Last 24 Hours 11/09/21 11/10/21 11/11/21 23:59 23:59 23:59 Intake Total 1360 / 1360 2119 / 0 180 / 180 Balance 1360 / 1360 2119 / 2119 180 / 180 Medical Nutrition Assessment Dietitian: Malnutrition Criteria Met Start: 11/09/21 12:51 Freq: Status: Active Protocol: Document 11/09/21 12:51 AG (Rec: 11/09/21 12:51 [id number]) Nutrition Malnutrition Evidence of Malnutrition Exists Yes Malnutrition (moderate): Acute Illness/Injury Evidenced By Suboptimal Energy Intake ( Moderate),Weight Loss ( Moderate) Clinical Problem Acute Disease or Injury Related Malnutrition Etiology moderate, acute malnutrition r /t inadequate energy intake d/ t COVID illness Signs/Symptoms as evidenced by estimated PO intake meeting <75% of estimated energy needs >1 week , unintentional 11#/3.4% wt loss x 2 weeks Status Active Problem Recommendation Dietitian Recommendations/Changes continue regular diet as tolerated; ensure compact w/ meals if PO intake declines Lab / Micro Data Result Diagrams: 11/11/21 05:50 11/11/21 05:50 Labs: Laboratory Results - last 24 hr 11/11/21 05:50: WBC 10.7, RBC 4.65, Hgb 12.8 L, Hct 38.2 L, MCV 82.2, MCH 27.5, MCHC 33.5, RDW Std Deviation 36.0, RDW Coeff of Ifeoma 12.0, Plt Count 283, MPV 9.0, Immature Gran % (Auto) 4.200 H, Neut % (Auto) 87.1 H, Lymph % (Auto) 5.0 L, [place] % (Auto) 3.0, Eos % (Auto) 0.6, Baso % (Auto) 0.1, Absolute Neuts (auto) 9.4 H, Absolute Lymphs (auto) 0.54 L, Nucleated RBC % 0 11/11/21 05:50: Sodium 130 L, Potassium 3.4 L, Chloride 96 L, Carbon Dioxide 26.0, Anion Gap 8, BUN 24 H, Creatinine 0.72, Estim Creat Clear Calc 131.01, Est GFR (MDRD) Af Amer 145, Est GFR (MDRD) Non-Af 120, BUN/Creatinine Ratio 33.3 H, Glucose 102, Calcium 8.2 L, Total Bilirubin 0.90, AST 51 H, ALT 34, Alkaline Phosphatase 61, Total Protein 6.6, Albumin 2.3 L, Globulin 4.3 H, Albumin/Globulin Ratio 0.5 L Micro: Microbiology 11/08/21 17:55 Blood Culture (Wb) - Anticubital Left Blood Culture - Preliminary No growth in 48 hours. 11/08/21 19:53 Blood Culture (Wb) - Anticubital Right Blood Culture - Preliminary No growth in 48 hours. 11/08/21 17:55 Nasal Secretion SARS-CoV-2 Antigen (Rapid) - Final Physical Exam Const alert, oriented x3 and no apparent distress HEENT head/scalp atraumatic Head and Scalp: normocephalic Eyes conjunctivae normal and no scleral icterus Neck full ROM and supple Resp Effort and Inspection: symmetric chest movement and tachypneic Auscultation: diminished lung sounds Cardio regular rate, regular rhythm, S1 normal heart sound and S2 normal heart sound GI normal to inspection, nondistended, normoactive bowel sounds, soft to palpation and non-tender Extremity normal to inspection, full ROM and no clubbing, cyanosis or edema Peripheral Pulses: Yes pulses 2+ throughout Skin no rashes or lesions noted, no wounds and skin turgor normal Neuro oriented x3, moves all extremities, no focal motor deficits and no sensory deficits noted Sensorium / Orientation: awake and alert Psych affect normal Assessment & Plan Assessment/Plan (1) COVID-19: (2) Pneumonia: QUALIFIERS: Pneumonia type: due to COVID-19 virus Qualified Code(s): U07.1 - COVID-19; J12.82 - Pneumonia due to coronavirus disease 2019 (3) Respiratory failure: QUALIFIERS: Chronicity: acute Respiratory failure complication: hypoxia Qualified Code(s): J96.01 - Acute respiratory failure with hypoxia PLAN: 1. Acute hypoxic respiratory failure second to COVID-19 pneumonia -Continue dexamethasone and baricitinib -Patient currently on BiPAP 2. Hypertension -Continue lisinopril and hydrochlorothiazide -Vital signs stable DVT prophylaxis-subcu Lovenox This patient was seen by Dejah Mays NP-C under the supervision of Dr. Patton. Documented by User: Dr. Mike Patton MD 11/11/21 18:56 Subjective Subjective Patient on BiPAP 70% FiO2. Currently on air Vo. Short of breath, respiratory rate 24 to 34/min. No fever. Objective Data Lab / Micro Data Result Diagrams: 11/11/21 05:50 11/11/21 05:50 Physical Exam Narrative General: Alert, Oriented x3, Cooperative HEENT: Atraumatic, PERRLA, EOMI, Normocephalic Oral: No Gingival or Mucosal Lesions/ Ulcerations Neck: Supple, No JVD, Negative Carotid Bruits Lungs: Air entry diminished in bilateral lung bases. Bilateral fine expiratory rhonchi. Tachypnea and severe hypoxia Cardiovascular: Regular rate, Regular Rhythm, Normal S1, Normal S2, No murmurs Abdomen: Bowel Sounds Present, Soft, Non Tender, Non-Distended : No renal angle tenderness. No suprapubic tenderness. Extremities: No edema, Capillary Refill Less than 3 Seconds Skin: No rashes, No breakdown Musculoskeletal: No Tenderness to Palpation of Joints or Extremities. ROM full Neurological: Cranial nerves II-XII grossly intact, DTR 2+/4. Psych/Mental Status: Normal Affect, Appropriate. Assessment & Plan Assessment/Plan (1) COVID-19: (2) Respiratory failure: QUALIFIERS: Chronicity: acute Respiratory failure complication: hypoxia Qualified Code(s): J96.01 - Acute respiratory failure with hypoxia PLAN: In brief, patient is admitted for acute hypoxic respiratory failure secondary to bilateral COVID-19 pneumonia. CTA does not show evidence of PE or arterial dissection but bilateral pneumonia viral. On dexamethasone. Patient seen by auricular detoxification specialist and ID. Started on baricitinib 4 mg daily for 2 weeks. Continue dexamethasone. If patient FiO2 requirement goes high will need transfer to ICU for further management. Mild hyponatremia: Sodium 133. Sodium not improving. Other comorbidities as mentioned above Active Medications Albuterol Sulfate (Albuterol Ih 8.5 Gm (Proair) Inhaler (200 Puffs)) 2 puff INHALATION Q4H PRN PRN PRN Reason: SOB &/OR WHEEZING Last Admin: 11/11/21 02:07 Dose: 2 puff Documented by: Baricitinib (Baricitinib 2 Mg Tablet) 4 mg PO DAILY [facility] Stop: 11/24/21 10:01 Last Admin: 11/11/21 13:20 Dose: 4 mg Documented by: Calcium Carbonate (Calcium Carbonate 500 Mg Tablet) 500 mg PO Q6H PRN PRN PRN Reason: upset stomach Last Admin: 11/10/21 16:36 Dose: 500 mg Documented by: Dexamethasone (Dexamethasone 2 Mg Tablet) 6 mg PO DAILY [facility] Last Admin: 11/11/21 09:00 Dose: 6 mg Documented by: Enoxaparin Sodium (Enoxaparin 60 Mg/0.6 Ml Syringe) 60 mg SC DAILY [facility] Guaifenesin (Guaifenesin 1,200 Mg Tablet) 1,200 mg PO BID [facility] Last Admin: 11/11/21 09:00 Dose: 1,200 mg Documented by: Hydrochlorothiazide (Hydrochlorothiazide 12.5mg) 12.5 mg PO BID [facility] Last Admin: 11/11/21 09:00 Dose: 12.5 mg Documented by: Sodium Chloride () 250 mls @ 15 mls/hr IV .[id number] PRN PRN Reason: Saline Flush Sodium Chloride () 250 mls @ 15 mls/hr IV .[id number] PRN PRN Reason: Additional IVPB Infusion Lisinopril (Lisinopril 10 Mg Tablet) 10 mg PO BID [facility] Last Admin: 11/11/21 09:00 Dose: 10 mg Documented by: Miscellaneous Information (Inhaler, Assist Devices 1 Each Spacer) 1 each INHALATION PRN PRN PRN Reason: WITH ALBUTEROL INHALER Last Admin: 11/11/21 02:07 Dose: 1 each Documented by: Potassium Chloride (Potassium Chloride Oral Tablet 20 Meq) 40 meq PO DAILYCM [facility] Stop: 11/14/21 13:01 Last Admin: 11/11/21 13:21 Dose: 40 meq Documented by: Sodium Chloride (0.9% Saline Lock 10 Ml Syringe) 10 - 40 ml IV UD PRN PRN Reason: SALINE FLUSH Charges/Coding Visit Charges Inpatient E&M: 31828 Subs Hosp L2
--- NOTE | 2021-11-11 12:28 | PCM.CONS.GEN ---
HPI Consult Data Date of Consult: 11/11/21 HPI Narrative HPI Narrative: PIERRE CUEVAS, is a 56 M who presents with worsening respiratory distress and found to have COVID-19. Chest x-ray shows extensive bilateral infiltrates. He is currently on noninvasive ventilatory support. Patient is on low-dose dexamethasone along with low molecular weight heparin for DVT prophylaxis. Patient himself has not had a COVID-19 vaccine. He does have underlying hypertension and is on ALEXANDRA inhibitor at home. No history of tobacco use or underlying lung disease. [facility], LAT[facility] Medical History Arthritis Hay fever HTN (hypertension) Home Medications lisinopril 10 mg-hydrochlorothiazide 12.5 mg tablet 1 tab PO BID 12/14/17 [History Last Taken Unknown] Allergy/AdvReac Type Severity Reaction Status Date / Time grass pollen Allergy Unknown Verified 11/09/21 00:19 tree and shrub pollen Allergy Unknown Verified 11/09/21 00:19 Social History Smoking Status: Never smoker alcohol intake: never Physical Exam Narrative Morbidly obese man lungs are scattered rhonchi heart exam S1-S2 abdomen is obese but soft. Medical Records Data Medical Nutrition Assessment Dietitian: Malnutrition Criteria Met Start: 11/09/21 12:51 Freq: Status: Active Protocol: Document 11/09/21 12:51 AG (Rec: 11/09/21 12:51 AG [id number]) Nutrition Malnutrition Evidence of Malnutrition Exists Yes Malnutrition (moderate): Acute Illness/Injury Evidenced By Suboptimal Energy Intake ( Moderate),Weight Loss ( Moderate) Clinical Problem Acute Disease or Injury Related Malnutrition Etiology moderate, acute malnutrition r /t inadequate energy intake d/ t COVID illness Signs/Symptoms as evidenced by estimated PO intake meeting <75% of estimated energy needs >1 week , unintentional 11#/3.4% wt loss x 2 weeks Status Active Problem Recommendation Dietitian Recommendations/Changes continue regular diet as tolerated; ensure compact w/ meals if PO intake declines Lab / Micro Data Result Diagrams: 11/11/21 05:50 11/11/21 05:50 Labs: Laboratory Results - last 24 hr 11/11/21 05:50: WBC 10.7, RBC 4.65, Hgb 12.8 L, Hct 38.2 L, MCV 82.2, MCH 27.5, MCHC 33.5, RDW Std Deviation 36.0, RDW Coeff of Ifeoma 12.0, Plt Count 283, MPV 9.0, Immature Gran % (Auto) 4.200 H, Neut % (Auto) 87.1 H, Lymph % (Auto) 5.0 L, [place] % (Auto) 3.0, Eos % (Auto) 0.6, Baso % (Auto) 0.1, Absolute Neuts (auto) 9.4 H, Absolute Lymphs (auto) 0.54 L, Nucleated RBC % 0 11/11/21 05:50: Sodium 130 L, Potassium 3.4 L, Chloride 96 L, Carbon Dioxide 26.0, Anion Gap 8, BUN 24 H, Creatinine 0.72, Estim Creat Clear Calc 131.01, Est GFR (MDRD) Af Amer 145, Est GFR (MDRD) Non-Af 120, BUN/Creatinine Ratio 33.3 H, Glucose 102, Calcium 8.2 L, Total Bilirubin 0.90, AST 51 H, ALT 34, Alkaline Phosphatase 61, Total Protein 6.6, Albumin 2.3 L, Globulin 4.3 H, Albumin/Globulin Ratio 0.5 L Micro: Microbiology 11/08/21 17:55 Blood Culture (Wb) - Anticubital Left Blood Culture - Preliminary No growth in 48 hours. 11/08/21 19:53 Blood Culture (Wb) - Anticubital Right Blood Culture - Preliminary No growth in 48 hours. Procedure Criteria Elective Risks - COVID COVID Risk Discussion: Patient with COVID-19 pneumonia with severe hypoxemia. I agree with low-dose dexamethasone 6 mg IV daily. I did discuss with the patient on the use of baricitinib and immunomodulating agent, patient is agreeable to this agent and will start 4 mg p.o. daily for 2 weeks. We will also increase the low molecular weight heparin to 60 mg subcu daily in lieu of his large size.
[2021-11-11] MEDS: Potassium Chloride Oral Tablet 20 MEQ 40 MEQ PO (13:21)
--- NOTE | 2021-11-11 14:01 | CON.PCM.CC_ITS ---
Assessment & Plan Assessment/Plan (1) Respiratory failure: QUALIFIERS: Chronicity: acute Respiratory failure complication: hypoxia Qualified Code(s): J96.01 - Acute respiratory failure with hypoxia (2) COVID-19: PLAN: RECOMMENDATIONS: 1. Continue BiPAP and wean FiO2 to maintain oxygen saturations at or above 90%. 2. Continue Decadron to complete 10 days of therapy. 3. Continue Lovenox as ordered. 4. Continue baricitinib per ID recommendations. 5. Awake prone positioning was encouraged. 6. Diuretics, as needed, to maintain euvolemic state. 7. If FiO2 demand increases significantly, recommend ICU transfer. IMPRESSIONS: 1. Acute hypoxemic respiratory failure secondary to COVID-19 pneumonia The patient initially presented to the hospital on November 08 after he was found to be hypoxemic at his primary care physician's office. The patient was subsequently found to be positive for COVID-19. CTA chest was negative for PE but did demonstrate bilateral groundglass opacities. His symptoms have been present for several weeks. Therefore, the patient will be continued on Decadron and Lovenox as ordered. Following evaluation by infectious diseases, he was initiated on baricitinib. He has demonstrated progressive worsening in his respiratory status since admission, and is now requiring BiPAP support. Continue to wean FiO2 as tolerated for saturations greater than 90%. Awake prone positioning is encouraged. Diuretics can be utilized, as needed, to maintain euvolemic state. 2. Morbid obesity/hypertension Complicates care, management, recovery and prognosis. Continue home medications as indicated. This note was generated with HW dictation software. It may contain incorrect words, spelling, and punctuation that were not noted in checking the note before signing. HPI Consult Data Date of Consult: 11/11/21 HPI Narrative Reason for Consultation: Acute hypoxemic respiratory failure secondary to COVID- 19 pneumonia HPI Narrative: The patient is a 56-year-old male, with a history as outlined below, who presented to the emergency department via EMS on November 08 with shortness of breath and hypoxemia. The patient is unvaccinated against coronavirus. The patient has been experiencing upper respiratory symptoms for the last 2 weeks. He was evaluated in his primary care physician's office on November 08, at which time, he was noted to be hypoxemic. On presentation to the emergency department, the patient was noted to be afebrile and hemodynamically stable. Laboratory evaluation revealed a normal white blood cell count. D-dimer was elevated at 5.26. Chemistry profile was unremarkable. Coronavirus PCR was positive. CTA chest showed no evidence for pulmonary embolism but did demonstrate bilateral airspace opacities. The patient was placed on Decadron and Lovenox. He was admitted to the progressive care unit for further management. Following evaluation by infectious diseases, the patient was initiated on baricitinib. He is currently requiring noninvasive positive pressure ventilatory support with an FiO2 requirement of 60%. [facility] Medical History Arthritis Hay fever HTN (hypertension) Home Medications lisinopril 10 mg-hydrochlorothiazide 12.5 mg tablet 1 tab PO BID 12/14/17 [History Last Taken Unknown] Allergy/AdvReac Type Severity Reaction Status Date / Time grass pollen Allergy Unknown Verified 11/09/21 00:19 tree and shrub pollen Allergy Unknown Verified 11/09/21 00:19 Social History Smoking Status: Never smoker alcohol intake: never ROS Constitutional Constitutional: Denies chills, fatigue or fever(s) Eyes Eyes: Denies blurry vision or change in vision ENT HEENT: Denies dizziness, epistaxis or loss taste/smell Cardiovascular Cardiovascular: Reports dyspnea; Denies chest pain Respiratory/Chest Respiratory/Chest: Reports dyspnea Gastrointestinal Gastrointestinal: Denies abdominal pain, diarrhea, nausea or vomiting Genitourinary Genitourinary: Denies difficulty urinating Musculoskeletal Musculoskeletal: Denies arthralgias, back pain or joint pain Integumentary Integumentary: Denies lesions, rash or skin ulcer Neurologic Neurologic: Denies abnormal gait or abnormal speech Psychiatric Psychiatric: Denies anxiety or depression Endocrine Endocrinology: Denies fatigue Hematologic/Lymphatic Hematologic/Lymphatic: Denies easy bleeding or easy bruising Physical Exam Const alert and no apparent distress General Appearance: cooperative and on BiPAP Nutritional Appearance: morbidly obese HEENT normocephalic and head/scalp atraumatic Eyes PERRL, EOMs intact bilaterally and conjunctivae normal Neck supple General: trachea midline Chest inspection of chest normal Resp Effort and Inspection: tachypneic Auscultation: diminished lung sounds Cardio regular rate and regular rhythm GI normal to inspection, nondistended, normoactive bowel sounds Extremity no clubbing, cyanosis or edema Skin no rashes or lesions noted Neuro CN's II-XII intact bilaterally, moves all extremities and no focal motor deficits Psych Mood & Affect: flat affect Medical Records Data Medical Nutrition Assessment Dietitian: Malnutrition Criteria Met Start: 11/09/21 12:51 Freq: Status: Active Protocol: Document 11/09/21 12:51 AG (Rec: 11/09/21 12:51 [id number]) Nutrition Malnutrition Evidence of Malnutrition Exists Yes Malnutrition (moderate): Acute Illness/Injury Evidenced By Suboptimal Energy Intake ( Moderate),Weight Loss ( Moderate) Clinical Problem Acute Disease or Injury Related Malnutrition Etiology moderate, acute malnutrition r /t inadequate energy intake d/ t COVID illness Signs/Symptoms as evidenced by estimated PO intake meeting <75% of estimated energy needs >1 week , unintentional 11#/3.4% wt loss x 2 weeks Status Active Problem Recommendation Dietitian Recommendations/Changes continue regular diet as tolerated; ensure compact w/ meals if PO intake declines Lab / Micro Data Result Diagrams: 11/11/21 05:50 11/11/21 05:50 Labs: Laboratory Results - last 24 hr 11/11/21 05:50: WBC 10.7, RBC 4.65, Hgb 12.8 L, Hct 38.2 L, MCV 82.2, MCH 27.5, MCHC 33.5, RDW Std Deviation 36.0, RDW Coeff of Ifeoma 12.0, Plt Count 283, MPV 9.0, Immature Gran % (Auto) 4.200 H, Neut % (Auto) 87.1 H, Lymph % (Auto) 5.0 L, [place] % (Auto) 3.0, Eos % (Auto) 0.6, Baso % (Auto) 0.1, Absolute Neuts (auto) 9.4 H, Absolute Lymphs (auto) 0.54 L, Nucleated RBC % 0 11/11/21 05:50: Sodium 130 L, Potassium 3.4 L, Chloride 96 L, Carbon Dioxide 26.0, Anion Gap 8, BUN 24 H, Creatinine 0.72, Estim Creat Clear Calc 131.01, Est GFR (MDRD) Af Amer 145, Est GFR (MDRD) Non-Af 120, BUN/Creatinine Ratio 33.3 H, Glucose 102, Calcium 8.2 L, Total Bilirubin 0.90, AST 51 H, ALT 34, Alkaline Phosphatase 61, Total Protein 6.6, Albumin 2.3 L, Globulin 4.3 H, Albumin /Globulin Ratio 0.5 L Micro: Microbiology 11/08/21 17:55 Blood Culture (Wb) - Anticubital Left Blood Culture - Preliminary No growth in 48 hours. 11/08/21 19:53 Blood Culture (Wb) - Anticubital Right Blood Culture - Preliminary No growth in 48 hours. Charges/Coding Visit Charges Inpatient E&M: 15984 Init Hosp L3
[2021-11-11] MEDS: LORazepam 2 MG/ML Syringe 0.5 MG IV (21:35)
[2021-11-11] MEDS: 0.9% Saline Lock 10 ML Syringe IV (21:35)
[2021-11-11] MEDS: guaiFENesin 10 ML UDC (200MG/10ML) PO (22:18)
[2021-11-12] VITALS (21 sets, daily range): BP systolic 106–159; BP diastolic 65–94; PULSE 59–82; RESP 14–33; TEMP 35.9–36.4; O2SAT 90–97
[2021-11-12] MEDS: LORazepam 2 MG/ML Syringe 0.5 MG IV ×2 (03:59→21:11)
[2021-11-12] MEDS: 0.9% Saline Lock 10 ML Syringe IV ×2 (04:00→21:11)
[2021-11-12 07:00] LABS: Absolute Lymphocyte Count 0.73 X10^3/uL (0.83-4.51); Absolute Neutrophil Count 8.9 X10^3/uL (2.0-7.7); Basophil# 0.02 X10^3/uL; Basophil% 0.2 % (0-1); Eosinophils% 0.9 % (0-5); Hematocrit 37.2 % (40-54); Hemoglobin 12.6 g/dL (13.0-16.5); Lymphocyte # 0.73 X10^3/ul (0.83-4.51); Lymphocyte % 6.8 % (19-41); Mean Corp Hgb Conc 33.9 g/dL (32-36); Mean Corpuscular Hgb 27.6 pg (27.0-32.0); Mean Corpuscular Volume 81.6 fL (80-94); Mean Platelet Vol. 9.1 fl (6.2-12.0); Monocyte# 0.46 X10^3/uL; Monocyte% 4.3 % (0-10); NRBC Flagged by Analyzer 0 % (0-5); Neutrophil # 8.93 X10^3/uL (2.7-7.7); Neutrophil % 83.7 % (47-70); Platelet Count 290 K/mm3 (150-450); RBC Distribution Width CV 12.1 % (11.6-14.6); RBC Distribution Width SD 36.1 fl (35.1-43.9); Red Blood Count 4.56 M/mm3 (4.6-6.2); White Blood Count 10.7 K/mm3 (4.4-11.0)
[2021-11-12 07:41] LABS: ALB/GLOB Ratio 0.5 RATIO (0.9-2.4); AST(SGOT) 44 U/L (15-37); Alanine Aminotransfer ALT/SGPT 37 U/L (16-61); Albumin, Serum 2.3 g/dL (3.2-5.0); Alkaline Phosphatase 58 U/L (45-117); Anion Gap 8 (5-15); BUN 21 mg/dL (7-18); BUN/Creat Ratio 34.7 RATIO (10-20); Calcium,Total 7.9 mg/dL (8.5-10.1); Chloride 94 mmol/L (98-107); EST Glomerular Filtration Rate 147 mL/min (>60); Est Glom Filt Rate - Afr Amer 178 mL/min (>60); Estimated Creatinine Clearance 157.21 ml/min; Ferritin 957 ng/mL (26-388); Globulin 4.6 g/dL (2.2-4.2); Glucose 92 mg/dL (74-106); Potassium 3.7 mmol/L (3.5-5.1); Protein, Total 6.9 g/dL (6.4-8.2); Sodium Level 129 mmol/L (136-145)
--- NOTE | 2021-11-12 07:43 | PN.CC_ITS ---
Assessment & Plan Assessment/Plan (1) Respiratory failure: QUALIFIERS: Chronicity: acute Respiratory failure complication: hypoxia Qualified Code(s): J96.01 - Acute respiratory failure with hypoxia (2) COVID-19: PLAN: RECOMMENDATIONS: 1. Continue combination of Airvo heated high flow and BiPAP as tolerated. 2. Continue Decadron to complete 10 days of therapy. 3. Continue Lovenox as ordered. 4. Continue baricitinib per ID recommendations. 5. Awake prone positioning was encouraged. 6. Diuretics, as needed, to maintain euvolemic state. 7. If FiO2 demand increases significantly, recommend ICU transfer. IMPRESSIONS: 1. Acute hypoxemic respiratory failure secondary to COVID-19 pneumonia The patient initially presented to the hospital on November 08 after he was found to be hypoxemic at his primary care physician's office. The patient was subsequently found to be positive for COVID-19. CTA chest was negative for PE but did demonstrate bilateral groundglass opacities. His symptoms have been present for several weeks. Therefore, the patient will be continued on Decadron, baricitinib and Lovenox as ordered. He has demonstrated progressive worsening in his respiratory status since admission. Continue to wean FiO2 as tolerated for saturations greater than 90%. Awake prone positioning is encouraged. Diuretics can be utilized, as needed, to maintain euvolemic state. 2. Morbid obesity/hypertension Complicates care, management, recovery and prognosis. Continue home medications as indicated. This note was generated with [employer] dictation software. It may contain incorrect words, spelling, and punctuation that were not noted in checking the note before signing. Subjective Subjective The patient was seen and examined at the bedside this morning. Events from the last 24 hours have been reviewed. The patient is currently afebrile, hemodynamically stable and maintaining appropriate oxygen saturations on Airvo currently with an FiO2 requirement of 93% and flow rate of 60 L/min. The patie nt was not tolerant of BiPAP throughout the entire night. He continues to remove his oxygen devices and readily desaturates. The patient is currently documented to be overall net +4.5 L for the hospitalization. The patient remains on Decadron, baricitinib and Lovenox. Sodium is low at 129 with a chloride of 94. Creatinine is within normal limits. Objective Data Objective Data The patient's most recent lab work, culture data and imaging studies have all been personally reviewed. Coronavirus PCR was positive on November 08. CTA dated November 08 was negative for PE. Vital Signs: Vital Signs Temp Pulse Resp BP Pulse Ox 96.6 F L 63 33 H 115/75 95 11/12/21 06:05 11/12/21 07:24 11/12/21 06:05 11/12/21 06:05 11/12/21 06:05 Oxygen Flow Rate (L/min) 60 Oxygen Delivery Method Bi-pap Weight: 140.6 kg Body Mass Index (BMI) 40.8 Intake & Output: Intake and Output for Last 24 Hours 11/10/21 11/11/21 11/12/21 23:59 23:59 23:59 Intake Total 2119 420 / 1620 1400 / 1400 Output Total 800 / 800 Balance 2119 420 / 1620 600 / 600 Medical Nutrition Assessment Dietitian: Malnutrition Criteria Met Start: 11/09/21 12:51 Freq: Status: Active Protocol: Document 11/09/21 12:51 AG (Rec: 11/09/21 12:51 AG [id number]) Nutrition Malnutrition Evidence of Malnutrition Exists Yes Malnutrition (moderate): Acute Illness/Injury Evidenced By Suboptimal Energy Intake ( Moderate),Weight Loss ( Moderate) Clinical Problem Acute Disease or Injury Related Malnutrition Etiology moderate, acute malnutrition r /t inadequate energy intake d/ t COVID illness Signs/Symptoms as evidenced by estimated PO intake meeting <75% of estimated energy needs >1 week , unintentional 11#/3.4% wt loss x 2 weeks Status Active Problem Recommendation Dietitian Recommendations/Changes continue regular diet as tolerated; ensure compact w/ meals if PO intake declines Lab / Micro Data Attestation: I reviewed the patient's lab results. Result Diagrams: 11/12/21 06:04 11/12/21 06:04 Labs: Laboratory Results - last 24 hr 11/12/21 06:04: WBC 10.7, RBC 4.56 L, Hgb 12.6 L, Hct 37.2 L, MCV 81.6, MCH 27.6, MCHC 33.9, RDW Std Deviation 36.1, RDW Coeff of Ifeoma 12.1, Plt Count 290, MPV 9.1, Immature Gran % (Auto) 4.100 H, Neut % (Auto) 83.7 H, Lymph % (Auto) 6.8 L, [place] % (Auto) 4.3, Eos % (Auto) 0.9, Baso % (Auto) 0.2, Absolute Neuts (auto) 8.9 H, Absolute Lymphs (auto) 0.73 L, Nucleated RBC % 0 11/12/21 06:04: Sodium 129 L, Potassium 3.7, Chloride 94 L, Carbon Dioxide 27.0, Anion Gap 8, BUN 21 H, Creatinine 0.60 L, Estim Creat Clear Calc 157.21, Est GFR (MDRD) Af Amer 178, Est GFR (MDRD) Non-Af 147, BUN/Creatinine Ratio 34.7 H, Glucose 92, Calcium 7.9 L, Ferritin 957 H, Total Bilirubin 0.80, AST 44 H, ALT 37, Alkaline Phosphatase 58, C-React Prot Ext Range 80.90 H, Total Protein 6.9, Albumin 2.3 L, Globulin 4.6 H, Albumin/Globulin Ratio 0.5 L Micro: Microbiology 11/08/21 17:55 Blood Culture (Wb) - Anticubital Left Blood Culture - Preliminary No growth in 48 hours. 11/08/21 19:53 Blood Culture (Wb) - Anticubital Right Blood Culture - Preliminary No growth in 48 hours. 11/08/21 17:55 Nasal Secretion SARS-CoV-2 Antigen (Rapid) - Final Physical Exam Const alert and no apparent distress Constitutional Narrative: Currently on Airvo. General Appearance: cooperative Nutritional Appearance: morbidly obese HEENT normocephalic and head/scalp atraumatic Eyes PERRL, EOMs intact bilaterally and conjunctivae normal Neck supple General: trachea midline Chest inspection of chest normal Resp Effort and Inspection: able to speak in complete sentences and tachypneic Auscultation: diminished lung sounds Cardio regular rate and regular rhythm GI normal to inspection, nondistended, normoactive bowel sounds Extremity no clubbing, cyanosis or edema Skin no rashes or lesions noted Neuro CN's II-XII intact bilaterally, moves all extremities and no focal motor deficits Psych Mood & Affect: flat affect Charges/Coding Visit Charges Inpatient E&M: 13355 Subs Hosp L3
[2021-11-12 07:53] LABS: D-Dimer Quantitative (DVT/PE) 10.56 FEU/ug/m (0.27-0.49)
[2021-11-12 08:23] LABS: Procalcitonin 0.05 ng/mL (0.00-0.09)
[2021-11-12] MEDS: Furosemide 40 MG/4 ML Vial IV (09:49)
[2021-11-12] MEDS: Enoxaparin 40 MG/0.4 ML Syringe SC ×2 (09:49→21:11)
[2021-11-12] MEDS: Potassium Chloride Oral Tablet 20 MEQ 40 MEQ PO (09:50)
[2021-11-12] MEDS: guaiFENesin 1,200 MG Tablet 1200 MG PO ×2 (09:50→21:11)
[2021-11-12] MEDS: dexAMETHasone 2 MG TABLET 6 MG PO (09:50)
[2021-11-12] MEDS: hydroCHLOROthiazide 12.5mg 12.5 MG PO (09:50)
[2021-11-12] MEDS: Lisinopril 10 MG Tablet PO (09:50)
[2021-11-12] MEDS: Pantoprazole Sodium 40 MG Tablet PO (09:50)
--- NOTE | 2021-11-12 11:57 | PCM.PN.HOSP ---
Subjective Subjective No fever in last 24 hours. Currently on BiPAP intermittently with air Vo. Objective Data Objective Data Vital Signs: Vital Signs Temp Pulse Resp BP Pulse Ox 96.9 F L 71 28 H 110/72 92 11/12/21 09:45 11/12/21 09:45 11/12/21 09:45 11/12/21 09:45 11/12/21 09:45 Oxygen Flow Rate (L/min) 60 Oxygen Delivery Method Airvo Weight: 309 lb 15.519 oz Body Mass Index (BMI) 40.8 Intake & Output: Intake and Output for Last 24 Hours 11/10/21 11/11/21 11/12/21 23:59 23:59 23:59 Intake Total 2119 420 / 1620 1400 / 1400 Output Total 800 / 800 Balance 2119 420 / 1620 600 / 600 Medical Nutrition Assessment Dietitian: Malnutrition Criteria Met Start: 11/09/21 12:51 Freq: Status: Active Protocol: Document 11/09/21 12:51 (Rec: 11/09/21 12:51 AG [id number]) Nutrition Malnutrition Evidence of Malnutrition Exists Yes Malnutrition (moderate): Acute Illness/Injury Evidenced By Suboptimal Energy Intake ( Moderate),Weight Loss ( Moderate) Clinical Problem Acute Disease or Injury Related Malnutrition Etiology moderate, acute malnutrition r /t inadequate energy intake d/ t COVID illness Signs/Symptoms as evidenced by estimated PO intake meeting <75% of estimated energy needs >1 week , unintentional 11#/3.4% wt loss x 2 weeks Status Active Problem Recommendation Dietitian Recommendations/Changes continue regular diet as tolerated; ensure compact w/ meals if PO intake declines Lab / Micro Data Result Diagrams: 11/12/21 06:04 11/12/21 06:04 Labs: Laboratory Results - last 24 hr 11/12/21 06:04: WBC 10.7, RBC 4.56 L, Hgb 12.6 L, Hct 37.2 L, MCV 81.6, MCH 27.6, MCHC 33.9, RDW Std Deviation 36.1, RDW Coeff of Ifeoma 12.1, Plt Count 290, MPV 9.1, Immature Gran % (Auto) 4.100 H, Neut % (Auto) 83.7 H, Lymph % (Auto) 6.8 L, [place] % (Auto) 4.3, Eos % (Auto) 0.9, Baso % (Auto) 0.2, Absolute Neuts (auto) 8.9 H, Absolute Lymphs (auto) 0.73 L, Nucleated RBC % 0 11/12/21 06:04: Sodium 129 L, Potassium 3.7, Chloride 94 L, Carbon Dioxide 27.0, Anion Gap 8, BUN 21 H, Creatinine 0.60 L, Estim Creat Clear Calc 157.21, Est GFR (MDRD) Af Amer 178, Est GFR (MDRD) Non-Af 147, BUN/Creatinine Ratio 34.7 H, Glucose 92, Calcium 7.9 L, Ferritin 957 H, Total Bilirubin 0.80, AST 44 H, ALT 37, Alkaline Phosphatase 58, C-React Prot Ext Range 80.90 H, Total Protein 6.9, Albumin 2.3 L, Globulin 4.6 H, Albumin/Globulin Ratio 0.5 L 11/12/21 06:04: D-Dimer Quant (PE/DVT) 10.56 H* 11/12/21 06:04: Procalcitonin 0.05 Micro: Microbiology 11/08/21 17:55 Blood Culture (Wb) - Anticubital Left Blood Culture - Preliminary No growth in 48 hours. 11/08/21 19:53 Blood Culture (Wb) - Anticubital Right Blood Culture - Preliminary No growth in 48 hours. 11/08/21 17:55 Nasal Secretion SARS-CoV-2 Antigen (Rapid) - Final Physical Exam Narrative General: Alert, Oriented x3, Cooperative HEENT: Atraumatic, PERRLA, EOMI, Normocephalic Oral: No Gingival or Mucosal Lesions/ Ulcerations Neck: Supple, No JVD, Negative Carotid Bruits Lungs: Air entry diminished in bilateral lung bases. Bilateral fine expiratory rhonchi. Tachypnea and severe hypoxia Cardiovascular: Regular rate, Regular Rhythm, Normal S1, Normal S2, No murmurs Abdomen: Bowel Sounds Present, Soft, Non Tender, Non-Distended : No renal angle tenderness. No suprapubic tenderness. Extremities: No edema, Capillary Refill Less than 3 Seconds Skin: No rashes, No breakdown Musculoskeletal: No Tenderness to Palpation of Joints or Extremities. ROM full Neurological: Cranial nerves II-XII grossly intact, DTR 2+/4. Psych/Mental Status: Normal Affect, Appropriate. Assessment & Plan Assessment/Plan (1) COVID-19: (2) Respiratory failure: QUALIFIERS: Chronicity: acute Respiratory failure complication: hypoxia Qualified Code(s): J96.01 - Acute respiratory failure with hypoxia PLAN: In brief, patient is admitted for acute hypoxic respiratory failure secondary to bilateral COVID-19 pneumonia. CTA does not show evidence of PE or arterial dissection but bilateral pneumonia viral. On dexamethasone. Patient seen by biller and ID. Started on baricitinib 4 mg daily for 2 weeks. Continue dexamethasone. If patient FiO2 requirement goes high will need transfer to ICU for further management. Mild hyponatremia: Sodium 133. Sodium not improving. Other comorbidities as mentioned above Active Medications Albuterol Sulfate (Albuterol Ih 8.5 Gm (Proair) Inhaler (200 Puffs)) 2 puff INHALATION Q4H PRN PRN PRN Reason: SOB &/OR WHEEZING Last Admin: 11/11/21 02:07 Dose: 2 puff Documented by: Baricitinib (Baricitinib 2 Mg Tablet) 4 mg PO DAILY [facility] Stop: 11/24/21 10:01 Last Admin: 11/11/21 13:20 Dose: 4 mg Documented by: Calcium Carbonate (Calcium Carbonate 500 Mg Tablet) 500 mg PO Q6H PRN PRN PRN Reason: upset stomach Last Admin: 11/10/21 16:36 Dose: 500 mg Documented by: Dexamethasone (Dexamethasone 2 Mg Tablet) 6 mg PO DAILY [facility] Last Admin: 11/11/21 09:00 Dose: 6 mg Documented by: Enoxaparin Sodium (Enoxaparin 60 Mg/0.6 Ml Syringe) 60 mg SC DAILY [facility] Guaifenesin (Guaifenesin 1,200 Mg Tablet) 1,200 mg PO BID [facility] Last Admin: 11/11/21 09:00 Dose: 1,200 mg Documented by: Hydrochlorothiazide (Hydrochlorothiazide 12.5mg) 12.5 mg PO BID [facility] Last Admin: 11/11/21 09:00 Dose: 12.5 mg Documented by: Sodium Chloride () 250 mls @ 15 mls/hr IV .[id number] PRN PRN Reason: Saline Flush Sodium Chloride () 250 mls @ 15 mls/hr IV .[id number] PRN PRN Reason: Additional IVPB Infusion Lisinopril (Lisinopril 10 Mg Tablet) 10 mg PO BID [facility] Last Admin: 11/11/21 09:00 Dose: 10 mg Documented by: Miscellaneous Information (Inhaler, Assist Devices 1 Each Spacer) 1 each INHALATION PRN PRN PRN Reason: WITH ALBUTEROL INHALER Last Admin: 11/11/21 02:07 Dose: 1 each Documented by: Potassium Chloride (Potassium Chloride Oral Tablet 20 Meq) 40 meq PO DAILYCM [facility] Stop: 11/14/21 13:01 Last Admin: 11/11/21 13:21 Dose: 40 meq Documented by: Sodium Chloride (0.9% Saline Lock 10 Ml Syringe) 10 - 40 ml IV UD PRN PRN Reason: SALINE FLUSH
--- NOTE | 2021-11-12 14:28 | PCM.PN.HOSP ---
Documented by User: Dejah Mays NP-C 11/12/21 14:30 Subjective Subjective Patient seen and examined. Patient sitting in bed no distress noted. Patient currently on air Vo 60 L 95% FiO2. Objective Data Objective Data Vital Signs: Vital Signs Temp Pulse Resp BP Pulse Ox 96.9 F L 71 30 H 106/67 95 11/12/21 13:00 11/12/21 13:00 11/12/21 13:00 11/12/21 13:00 11/12/21 13:00 Oxygen Flow Rate (L/min) 60 Oxygen Delivery Method Airvo Weight: 309 lb 15.519 oz Body Mass Index (BMI) 40.8 Intake & Output: Intake and Output for Last 24 Hours 11/10/21 11/11/21 11/12/21 23:59 23:59 23:59 Intake Total 2120 / 2120 420 / 1620 2300 / 2300 Output Total 1900 / 1900 Balance 2120 / 2120 420 / 1620 400 / 400 Medical Nutrition Assessment Dietitian: Malnutrition Criteria Met Start: 11/09/21 12:51 Freq: Status: Active Protocol: Document 11/09/21 12:51 AG (Rec: 11/09/21 12:51 AG [id number]) Nutrition Malnutrition Evidence of Malnutrition Exists Yes Malnutrition (moderate): Acute Illness/Injury Evidenced By Suboptimal Energy Intake ( Moderate),Weight Loss ( Moderate) Clinical Problem Acute Disease or Injury Related Malnutrition Etiology moderate, acute malnutrition r /t inadequate energy intake d/ t COVID illness Signs/Symptoms as evidenced by estimated PO intake meeting <75% of estimated energy needs >1 week , unintentional 11#/3.4% wt loss x 2 weeks Status Active Problem Recommendation Dietitian Recommendations/Changes continue regular diet as tolerated; ensure compact w/ meals if PO intake declines Lab / Micro Data Result Diagrams: 11/12/21 06:04 11/12/21 06:04 Labs: Laboratory Results - last 24 hr 11/12/21 06:04: WBC 10.7, RBC 4.56 L, Hgb 12.6 L, Hct 37.2 L, MCV 81.6, MCH 27.6, MCHC 33.9, RDW Std Deviation 36.1, RDW Coeff of Ifeoma 12.1, Plt Count 290, MPV 9.1, Immature Gran % (Auto) 4.100 H, Neut % (Auto) 83.7 H, Lymph % (Auto) 6.8 L, Tillman % (Auto) 4.3, Eos % (Auto) 0.9, Baso % (Auto) 0.2, Absolute Neuts (auto) 8.9 H, Absolute Lymphs (auto) 0.73 L, Nucleated RBC % 0 11/12/21 06:04: Sodium 129 L, Potassium 3.7, Chloride 94 L, Carbon Dioxide 27.0, Anion Gap 8, BUN 21 H, Creatinine 0.60 L, Estim Creat Clear Calc 157.21, Est GFR (MDRD) Af Amer 178, Est GFR (MDRD) Non-Af 147, BUN/Creatinine Ratio 34.7 H, Glucose 92, Calcium 7.9 L, Ferritin 957 H, Total Bilirubin 0.80, AST 44 H, ALT 37, Alkaline Phosphatase 58, C-React Prot Ext Range 80.90 H, Total Protein 6.9, Albumin 2.3 L, Globulin 4.6 H, Albumin/Globulin Ratio 0.5 L 11/12/21 06:04: D-Dimer Quant (PE/DVT) 10.56 H* 11/12/21 06:04: Procalcitonin 0.05 Micro: Microbiology 11/08/21 17:55 Blood Culture (Wb) - Anticubital Left Blood Culture - Preliminary No growth in 48 hours. 11/08/21 19:53 Blood Culture (Wb) - Anticubital Right Blood Culture - Preliminary No growth in 48 hours. 11/08/21 17:55 Nasal Secretion SARS-CoV-2 Antigen (Rapid) - Final Physical Exam Const alert, oriented x3 and no apparent distress General Appearance: cooperative HEENT normocephalic and head/scalp atraumatic Eyes PERRL, EOMs intact bilaterally, conjunctivae normal and no scleral icterus Neck full ROM and supple Lymph Lymphatic: no lymphadenopathy noted Resp Effort and Inspection: symmetric chest movement and tachypneic Auscultation: diminished lung sounds Cardio regular rate, regular rhythm, S1 normal heart sound and S2 normal heart sound Rate: tachycardic GI normal to inspection, nondistended, normoactive bowel sounds, soft to palpation and non-tender Extremity normal to inspection, full ROM and no clubbing, cyanosis or edema Skin no rashes or lesions noted, no wounds and skin turgor normal General Skin Exam: turgor normal Neuro oriented x3, CN's II-XII intact bilaterally, moves all extremities, no focal motor deficits and no sensory deficits noted Sensorium / Orientation: awake and alert Psych affect normal Assessment & Plan Assessment/Plan (1) COVID-19: (2) Pneumonia: QUALIFIERS: Pneumonia type: due to COVID-19 virus Qualified Code(s): U07.1 - COVID-19; J12.82 - Pneumonia due to coronavirus disease 2019 (3) Respiratory failure: QUALIFIERS: Chronicity: acute Respiratory failure complication: hypoxia Qualified Code(s): J96.01 - Acute respiratory failure with hypoxia PLAN: 1. Acute hypoxic respiratory failure second to COVID-19 pneumonia -Continue dexamethasone and baricitinib -Patient currently on air Vo 60 L 95% 2. Hypertension -Continue lisinopril and hydrochlorothiazide -Vital signs stable DVT prophylaxis-subcu Lovenox This patient was seen by Dejah Mays NP-C under the supervision of Dr. Patton. Documented by User: Dr. Mike Patton MD 11/12/21 17:39 Subjective Subjective Patient alternating BiPAP and air Vo. No fever. Objective Data Lab / Micro Data Result Diagrams: 11/12/21 06:04 11/12/21 06:04 Physical Exam Narrative General: Alert, Oriented x3, Cooperative HEENT: Atraumatic, PERRLA, EOMI, Normocephalic Oral: No Gingival or Mucosal Lesions/ Ulcerations Neck: Supple, No JVD, Negative Carotid Bruits Lungs: Air entry diminished in bilateral lung bases. On BiPAP alternating with air Vo. Severe hypoxia. Dyspnea at rest Cardiovascular: Regular rate, Regular Rhythm, Normal S1, Normal S2, No murmurs Abdomen: Bowel Sounds Present, Soft, Non Tender, Non-Distended : No renal angle tenderness. No suprapubic tenderness. Extremities: No edema, Capillary Refill Less than 3 Seconds Skin: No rashes, No breakdown Musculoskeletal: No Tenderness to Palpation of Joints or Extremities. ROM full Neurological: Cranial nerves II-XII grossly intact, DTR 2+/4. Psych/Mental Status: Flat affect. Assessment & Plan Assessment/Plan (1) COVID-19: (2) Respiratory failure: QUALIFIERS: Chronicity: acute Respiratory failure complication: hypoxia Qualified Code(s): J96.01 - Acute respiratory failure with hypoxia PLAN: This patient was seen in conjunction with LUI Pond. I have independently interviewed and examined the patient and reviewed pertinent history, examination findings, laboratory and plan of management. I have reviewed the note and agree with the documented findings with the few additional points. In brief, patient is admitted for acute hypoxic respiratory failure secondary to bilateral COVID-19 pneumonia. CTA does not show evidence of PE or arterial dissection but bilateral pneumonia viral. On dexamethasone. Patient seen by doggy daycare activities director and ID. Started on baricitinib 4 mg daily for 2 weeks. Continue dexamethasone. Awake prone positioning. Inflammatory markers elevated including ferritin, CRP, D-dimer. Procalcitonin normal. If patient FiO2 requirement goes high will need transfer to ICU for further management. Mild hyponatremia: Sodium 133. 11/12 serum sodium low 129 11/12: Blood pressure running low. HCTZ discontinued. And patient has hyponatremia. Lisinopril dose decreased to once daily 10 mg with holding parameters Other comorbidities as mentioned above I have discussed my assessment with LUI Pond and orders have been reviewed. Charges/Coding Visit Charges Inpatient E&M: 32740 Subs Hosp L2
--- NOTE | 2021-11-12 22:34 | CPS ---
Pt was having a coughing spell before 10 pm. Increased fio2 to 80. will recheck pt
[2021-11-13] VITALS (17 sets, daily range): BP systolic 107–131; BP diastolic 69–83; PULSE 54–78; RESP 21–32; TEMP 35.8–36.6; O2SAT 90–97
--- NOTE | 2021-11-13 07:03 | PN.CC_ITS ---
Assessment & Plan Assessment/Plan (1) Respiratory failure: QUALIFIERS: Chronicity: acute Respiratory failure complication: hypoxia Qualified Code(s): J96.01 - Acute respiratory failure with hypoxia (2) COVID-19: PLAN: RECOMMENDATIONS: 1. Continue to wean FiO2 to maintain oxygen saturations at or above 90%. 2. Continue Decadron to complete 10 days of therapy. 3. Continue Lovenox as ordered. 4. Continue baricitinib per ID recommendations. 5. Awake prone positioning was encouraged. 6. Diuretics, as needed, to maintain euvolemic state. Will redose Lasix today. IMPRESSIONS: 1. Acute hypoxemic respiratory failure secondary to COVID-19 pneumonia The patient initially presented to the hospital on November 08 after he was found to be hypoxemic at his primary care physician's office. The patient was subsequently found to be positive for COVID-19. CTA chest was negative for PE but did demonstrate bilateral groundglass opacities. His symptoms have been present for several weeks. Therefore, the patient will be continued on Decadron, baricitinib and Lovenox as ordered. He has demonstrated progressive worsening in his respiratory status since admission. Continue to wean FiO2 as tolerated for saturations greater than 90%. Awake prone positioning is encouraged. Diuretics can be utilized, as needed, to maintain euvolemic state. Start empiric antimicrobials if clinical status worsens. 2. Morbid obesity/hypertension Complicates care, management, recovery and prognosis. Continue home medications as indicated. This note was generated with [employer] dictation software. It may contain incorrect words, spelling, and punctuation that were not noted in checking the note before signing. Subjective Subjective The patient was seen and examined at the bedside this morning. Events from the last 24 hours have been reviewed. The patient is currently afebrile, hemodynamically stable and maintaining appropriate oxygen saturations on Airvo currently with an FiO2 requirement of 93% and flow rate of 60 L/min. The patient is currently documented to be overall net +4.2 L for the hospitalization. The patient remains on Decadron, baricitinib and Lovenox. Objective Data Objective Data The patient's most recent lab work, culture data and imaging studies have all been personally reviewed. Coronavirus PCR was positive on November 08. CTA dated November 08 was negative for PE. Vital Signs: Vital Signs Temp Pulse Resp BP Pulse Ox 96.5 F L 61 27 H 108/73 90 11/13/21 05:45 11/13/21 05:45 11/13/21 05:45 11/13/21 05:45 11/13/21 05:45 Oxygen Flow Rate (L/min) 60 Oxygen Delivery Method Airvo Weight: 140.6 kg Body Mass Index (BMI) 40.8 Intake & Output: Intake and Output for Last 24 Hours 11/11/21 11/12/21 11/13/21 23:59 23:59 23:59 Intake Total 420 / 1620 3700 / 3700 600 / 600 Output Total 3300 / 3300 650 / 650 Balance 420 / 1620 400 / 400 -50 / -50 Medical Nutrition Assessment Dietitian: Malnutrition Criteria Met Start: 11/09/21 12:51 Freq: Status: Active Protocol: Document 11/09/21 12:51 AG (Rec: 11/09/21 12:51 AG [id number]) Nutrition Malnutrition Evidence of Malnutrition Exists Yes Malnutrition (moderate): Acute Illness/Injury Evidenced By Suboptimal Energy Intake ( Moderate),Weight Loss ( Moderate) Clinical Problem Acute Disease or Injury Related Malnutrition Etiology moderate, acute malnutrition r /t inadequate energy intake d/ t COVID illness Signs/Symptoms as evidenced by estimated PO intake meeting <75% of estimated energy needs >1 week , unintentional 11#/3.4% wt loss x 2 weeks Status Active Problem Recommendation Dietitian Recommendations/Changes continue regular diet as tolerated; ensure compact w/ meals if PO intake declines Lab / Micro Data Attestation: I reviewed the patient's lab results. Result Diagrams: 11/13/21 06:55 11/13/21 06:55 Labs: Laboratory Results - last 24 hr 11/12/21 06:04: Sodium 129 L, Potassium 3.7, Chloride 94 L, Carbon Dioxide 27.0, Anion Gap 8, BUN 21 H, Creatinine 0.60 L, Estim Creat Clear Calc 157.21, Est GFR (MDRD) Af Amer 178, Est GFR (MDRD) Non-Af 147, BUN/Creatinine Ratio 34.7 H, Glucose 92, Calcium 7.9 L, Ferritin 957 H, Total Bilirubin 0.80, AST 44 H, ALT 37, Alkaline Phosphatase 58, C-React Prot Ext Range 80.90 H, Total Protein 6.9, Albumin 2.3 L, Globulin 4.6 H, Albumin/Globulin Ratio 0.5 L 11/12/21 06:04: D-Dimer Quant (PE/DVT) 10.56 H* 11/12/21 06:04: Procalcitonin 0.05 Micro: Microbiology 11/08/21 17:55 Blood Culture (Wb) - Anticubital Left Blood Culture - Preliminary No growth in 48 hours. 11/08/21 19:53 Blood Culture (Wb) - Anticubital Right Blood Culture - Preliminary No growth in 48 hours. 11/08/21 17:55 Nasal Secretion SARS-CoV-2 Antigen (Rapid) - Final Physical Exam Const alert and no apparent distress Constitutional Narrative: Currently on Airvo. General Appearance: cooperative Nutritional Appearance: morbidly obese HEENT normocephalic and head/scalp atraumatic Eyes PERRL, EOMs intact bilaterally and conjunctivae normal Neck supple General: trachea midline Chest inspection of chest normal Resp Effort and Inspection: tachypneic Auscultation: diminished lung sounds Cardio S1 normal heart sound and S2 normal heart sound Rate: bradycardia GI normal to inspection, nondistended, normoactive bowel sounds Extremity no clubbing, cyanosis or edema Skin no rashes or lesions noted Neuro CN's II-XII intact bilaterally, moves all extremities and no focal motor deficits Psych Mood & Affect: flat affect Charges/Coding Visit Charges Inpatient E&M: 37292 Subs Hosp L2
[2021-11-13 08:06] LABS: Hematocrit 36.7 % (40-54); Hemoglobin 12.6 g/dL (13.0-16.5); Mean Corp Hgb Conc 34.3 g/dL (32-36); Mean Corpuscular Hgb 28.3 pg (27.0-32.0); Mean Corpuscular Volume 82.5 fL (80-94); Mean Platelet Vol. 9.1 fl (6.2-12.0); POSITIVE COUNT YES; POSITIVE MORPHOLOGY YES; Platelet Count 277 K/mm3 (150-450); RBC Distribution Width CV 12.1 % (11.6-14.6); RBC Distribution Width SD 36.2 fl (35.1-43.9); Red Blood Count 4.45 M/mm3 (4.6-6.2); White Blood Count 10.9 K/mm3 (4.4-11.0)
[2021-11-13 08:39] LABS: Differential Indicated MANUAL DIFF
[2021-11-13 08:44] LABS: Lymphocyte 5 % (19-41); Metamyelocyte 5 % (0-1); Myelocyte 1 % (0-0); Neutrophil-Band 2 % (0-5); Neutrophil-Segmented 87 % (47-70); Total Cells Counted 100 (MANUAL DIFF)
[2021-11-13 08:45] LABS: Absolute Neutrophil Count 9.7 X10^3/uL (2.0-7.7); Neutrophil # 9.67 X10^3/uL (2.7-7.7); Platelet Estimate ADEQUATE (ADEQ); Red Cell Morphology NORM C+C NORMAL (NORM C&C)
[2021-11-13 08:46] LABS: Absolute Lymphocyte Count 0.54 X10^3/uL (0.83-4.51); Lymphocyte # 0.54 X10^3/ul (0.83-4.51)
[2021-11-13 09:09] LABS: ALB/GLOB Ratio 0.6 RATIO (0.9-2.4); AST(SGOT) 39 U/L (15-37); Alanine Aminotransfer ALT/SGPT 37 U/L (16-61); Albumin, Serum 2.3 g/dL (3.2-5.0); Alkaline Phosphatase 58 U/L (45-117); Anion Gap 9 (5-15); BUN 19 mg/dL (7-18); BUN/Creat Ratio 31.3 RATIO (10-20); Calcium,Total 8.2 mg/dL (8.5-10.1); Chloride 96 mmol/L (98-107); Creatinine, Serum 0.61 mg/dL (0.70-1.30); EST Glomerular Filtration Rate 146 mL/min (>60); Est Glom Filt Rate - Afr Amer 177 mL/min (>60); Estimated Creatinine Clearance 154.63 ml/min; Globulin 3.8 g/dL (2.2-4.2); Glucose 79 mg/dL (74-106); Potassium 4.1 mmol/L (3.5-5.1); Protein, Total 6.1 g/dL (6.4-8.2); Sodium Level 132 mmol/L (136-145)
[2021-11-13] MEDS: Furosemide 40 MG/4 ML Vial IV (10:12)
[2021-11-13] MEDS: Enoxaparin 40 MG/0.4 ML Syringe SC ×2 (10:14→22:04)
[2021-11-13] MEDS: guaiFENesin 1,200 MG Tablet 1200 MG PO ×2 (10:14→22:04)
[2021-11-13] MEDS: Potassium Chloride Oral Tablet 20 MEQ 40 MEQ PO (10:14)
[2021-11-13] MEDS: Pantoprazole Sodium 40 MG Tablet PO (10:14)
[2021-11-13] MEDS: dexAMETHasone 2 MG TABLET 6 MG PO (10:14)
--- NOTE | 2021-11-13 11:38 | PN.HOSP_ITS ---
Documented by User: DIANA Jaramillo 11/13/21 11:41 Subjective Subjective Patient seen and examined. Patient lying in bed no distress noted. Patient continues to be on air Vo however has decreased oxygen needs today. Patient currently on air Vo 60 L 74% FiO2. Objective Data Objective Data Vital Signs: Vital Signs Temp Pulse Resp BP Pulse Ox 97.8 F 78 24 H 118/72 93 11/13/21 10:09 11/13/21 10:09 11/13/21 10:09 11/13/21 10:11/13/21 10:09 Oxygen Flow Rate (L/min) 60 Oxygen Delivery Method Airvo Weight: 309 lb 15.519 oz Body Mass Index (BMI) 40.8 Intake & Output: Intake and Output for Last 24 Hours 11/11/21 11/12/21 11/13/21 23:59 23:59 23:59 Intake Total 420 / 1620 3700 / 3700 600 / 600 Output Total 3300 / 3300 650 / 650 Balance 420 / 1620 400 / 400 -50 / -50 Medical Nutrition Assessment Dietitian: Malnutrition Criteria Met Start: 11/09/21 12:51 Freq: Status: Active Protocol: Document 11/09/21 12:51 AG (Rec: 11/09/21 12:51 AG [id number]) Nutrition Malnutrition Evidence of Malnutrition Exists Yes Malnutrition (moderate): Acute Illness/Injury Evidenced By Suboptimal Energy Intake ( Moderate),Weight Loss ( Moderate) Clinical Problem Acute Disease or Injury Related Malnutrition Etiology moderate, acute malnutrition r /t inadequate energy intake d/ t COVID illness Signs/Symptoms as evidenced by estimated PO intake meeting <75% of estimated energy needs >1 week , unintentional 11#/3.4% wt loss x 2 weeks Status Active Problem Recommendation Dietitian Recommendations/Changes continue regular diet as tolerated; ensure compact w/ meals if PO intake declines Lab / Micro Data Result Diagrams: 11/13/21 06:55 11/13/21 06:55 Labs: Laboratory Results - last 24 hr 11/13/21 06:55: WBC 10.9, RBC 4.45 L, Hgb 12.6 L, Hct 36.7 L, MCV 82.5, MCH 28.3, MCHC 34.3, RDW Std Deviation 36.2, RDW Coeff of Ifeoma 12.1, Plt Count 277, MPV 9.1, Neut % (Auto) Not Reportable, Absolute Neuts (auto) 9.7 H, Absolute Lymphs (auto) 0.54 L, Total Counted 100, Neutrophils % (Manual) 87 H, Band Neutrophils % 2, Lymphocytes % (Manual) 5 L, Metamyelocytes % 5 H, Myelocytes % 1 H, Diff Path Review March, Platelet Estimate ADEQUATE, RBC Morphology NORM C+C 11/13/21 06:55: Sodium 132 L, Potassium 4.1, Chloride 96 L, Carbon Dioxide 27.0, Anion Gap 9, BUN 19 H, Creatinine 0.61 L, Estim Creat Clear Calc 154.63, Est GFR (MDRD) Af Amer 177, Est GFR (MDRD) Non-Af 146, BUN/Creatinine Ratio 31.3 H, Glucose 79, Calcium 8.2 L, Total Bilirubin 0.80, AST 39 H, ALT 37, Alkaline Phosphatase 58, Total Protein 6.1 L, Albumin 2.3 L, Globulin 3.8, A lbumin/Globulin Ratio 0.6 L Micro: Microbiology 11/08/21 17:55 Blood Culture (Wb) - Anticubital Left Blood Culture - Pre liminary No growth in 48 hours. 11/08/21 19:53 Blood Culture (Wb) - Anticubital Right Blood Culture - Preliminary No growth in 48 hours. 11/08/21 17:55 Nasal Secretion SARS-CoV-2 Antigen (Rapid) - Final Physical Exam Const alert, oriented x3 and no apparent distress General Appearance: cooperative HEENT normocephalic and head/scalp atraumatic Eyes PERRL, EOMs intact bilaterally, conjunctivae normal and no scleral icterus Neck full ROM and supple Lymph Lymphatic: no lymphadenopathy noted Resp Effort and Inspection: symmetric chest movement and tachypneic Auscultation: diminished lung sounds Cardio regular rate, regular rhythm, S1 normal heart sound and S2 normal heart sound Rate: tachycardic GI normal to inspection, nondistended, normoactive bowel sounds, soft to palpation and non-tender Extremity normal to inspection, full ROM and no clubbing, cyanosis or edema Skin no rashes or lesions noted, no wounds and skin turgor normal General Skin Exam: turgor normal Neuro oriented x3, CN's II-XII intact bilaterally, moves all extremities, no focal motor deficits and no sensory deficits noted Sensorium / Orientation: awake and alert Psych affect normal Assessment & Plan Assessment/Plan (1) COVID-19: (2) Pneumonia: QUALIFIERS: Pneumonia type: due to COVID-19 virus Qualified Code(s): U07.1 - COVID-19; J12.82 - Pneumonia due to coronavirus disease 2018 PLAN: 1. Acute hypoxic respiratory failure second to COVID-19 pneumonia -Continue dexamethasone and baricitinib -Patient currently on air Vo 60 L 74% 2. Hypertension -Continue lisinopril and hydrochlorothiazide -Vital signs stable DVT prophylaxis-subcu Lovenox This patient was seen by Dejah Mays NP-C under the supervision of Dr. Patton. Documented by User: Dr. Mike Patton MD 11/13/21 13:28 Objective Data Lab / Micro Data Result Diagrams: 11/13/21 06:55 11/13/21 06:55 Physical Exam Narrative Seen and examined. No fever but temperature 96.5-97.6 Fahrenheit. Patient on alternative BiPAP and Airvo. Patient asked about when he he was discharged home General: Alert, Oriented x3, Cooperative HEENT: Atraumatic, PERRLA, EOMI, Normocephalic Oral: No Gingival or Mucosal Lesions/ Ulcerations Neck: Supple, No JVD, Negative Carotid Bruits Lungs: Air entry diminished in bilateral lung bases. Severe hypoxia. Dyspnea at rest Cardiovascular: Regular rate, Regular Rhythm, Normal S1, Normal S2, No murmurs Abdomen: Bowel Sounds Present, Soft, Non Tender, Non-Distended : No renal angle tenderness. No suprapubic tenderness. Extremities: No edema, Capillary Refill Less than 3 Seconds Skin: No rashes, No breakdown Musculoskeletal: No Tenderness to Palpation of Joints or Extremities. ROM full Neurological: Cranial nerves II-XII grossly intact, DTR 2+/4. Psych/Mental Status: Flat affect. Assessment & Plan Assessment/Plan (1) COVID-19: (2) Respiratory failure: QUALIFIERS: Chronicity: acute Respiratory failure complication: hypoxia Qualified Code(s): J96.01 - Acute respiratory failure with hypoxia PLAN: This patient was seen in conjunction with LUI Pond. I have independently interviewed and examined the patient and reviewed pertinent history, examination findings, laboratory and plan of management. I have reviewed the note and agree with the documented findings with the few additional points. In brief, patient is admitted for acute hypoxic respiratory failure secondary to bilateral COVID-19 pneumonia. CTA does not show evidence of PE or arterial dissection but bilateral pneumonia viral. On dexamethasone. Patient seen by washer and capper machine operator and ID. Started on baricitinib 4 mg daily for 2 weeks. Continue dexamethasone. Awake prone positioning. Inflammatory markers elevated including ferritin, CRP, D-dimer. Procalcitonin normal. If patient FiO2 requirement goes high will need transfer to ICU for further management. Mild hyponatremia: Sodium 133. 11/12 serum sodium low 129 11/12: Blood pressure running low. HCTZ discontinued. And patient has hyponatremia. Lisinopril dose decreased to once daily 10 mg with holding parameters 11/13/21: Patient 1 dose of Lasix 40 mg. BP 131/75, 118/72. Patient is still dependent on BiPAP and air Vo. I told him that there is no exact date of discharge but depends on improvement on coming out of BiPAP and NIPPV. Encouraged about incentive spirometry and Pep. Prone positioning. Other comorbidities as mentioned above I have discussed my assessment with LUI Pond and orders have been reviewed. Charges/Coding Visit Charges Inpatient E&M: 58705 Subs Hosp L2
[2021-11-14] VITALS (11 sets, daily range): BP systolic 96–123; BP diastolic 58–86; PULSE 57–76; RESP 20; TEMP 35.7–36.7; O2SAT 92–99
[2021-11-14 07:13] LABS: Hemoglobin 13.2 g/dL (13.0-16.5); Mean Corpuscular Hgb 27.6 pg (27.0-32.0); Mean Corpuscular Volume 83.5 fL (80-94); Mean Platelet Vol. 9.2 fl (6.2-12.0); POSITIVE COUNT YES; POSITIVE MORPHOLOGY YES; Platelet Count 344 K/mm3 (150-450); RBC Distribution Width CV 12.1 % (11.6-14.6); RBC Distribution Width SD 36.8 fl (35.1-43.9); Red Blood Count 4.79 M/mm3 (4.6-6.2); White Blood Count 10.5 K/mm3 (4.4-11.0)
[2021-11-14 07:29] LABS: ALB/GLOB Ratio 0.5 RATIO (0.9-2.4); AST(SGOT) 29 U/L (15-37); Alanine Aminotransfer ALT/SGPT 38 U/L (16-61); Albumin, Serum 2.4 g/dL (3.2-5.0); Alkaline Phosphatase 60 U/L (45-117); Anion Gap 7 (5-15); BUN 18 mg/dL (7-18); BUN/Creat Ratio 26.8 RATIO (10-20); Calcium,Total 8.6 mg/dL (8.5-10.1); Chloride 95 mmol/L (98-107); Creatinine, Serum 0.67 mg/dL (0.70-1.30); EST Glomerular Filtration Rate 130 mL/min (>60); Est Glom Filt Rate - Afr Amer 158 mL/min (>60); Estimated Creatinine Clearance 140.79 ml/min; Globulin 4.8 g/dL (2.2-4.2); Glucose 86 mg/dL (74-106); Protein, Total 7.2 g/dL (6.4-8.2); Sodium Level 130 mmol/L (136-145)
[2021-11-14 07:34] LABS: Differential Indicated MANUAL DIFF
[2021-11-14 08:35] LABS: Eosinophil 2 % (0-5); Lymphocyte 9 % (19-41); Monocyte 6 % (0-10); Myelocyte 1 % (0-0); Neutrophil-Segmented 82 % (47-70); Platelet Estimate ADEQUATE (ADEQ); Red Cell Morphology NORM C+C NORMAL (NORM C&C); Total Cells Counted 100 (MANUAL DIFF)
[2021-11-14 08:36] LABS: Absolute Lymphocyte Count 0.94 X10^3/uL (0.83-4.51); Absolute Neutrophil Count 8.6 X10^3/uL (2.0-7.7)
--- NOTE | 2021-11-14 09:42 | PN.CC_ITS ---
Assessment & Plan Assessment/Plan (1) Respiratory failure: QUALIFIERS: Chronicity: acute Respiratory failure complication: hypoxia Qualified Code(s): J96.01 - Acute respiratory failure with hypoxia (2) COVID-19: PLAN: RECOMMENDATIONS: 1. Continue to wean FiO2 to maintain oxygen saturations at or above 90%. 2. Continue Decadron to complete 10 days of therapy. 3. Continue Lovenox as ordered. 4. Continue baricitinib per ID recommendations. 5. Awake prone positioning was encouraged. 6. Diuretics, as needed, to maintain euvolemic state. IMPRESSIONS: 1. Acute hypoxemic respiratory failure secondary to COVID-19 pneumonia The patient initially presented to the hospital on November 08 after he was found to be hypoxemic at his primary care physician's office. The patient was subsequently found to be positive for COVID-19. CTA chest was negative for PE but did demonstrate bilateral ground glass opacities. His symptoms have been present for several weeks. Therefore, the patient will be continued on Decadron , baricitinib and Lovenox as ordered. He has demonstrated progressive worsening in his respiratory status since admission. Continue to wean FiO2 as tolerated for saturations greater than 90%. Awake prone positioning is encouraged. Diuretics can be utilized, as needed, to maintain euvolemic state. Start empiric antimicrobials if clinical status worsens. 2. Morbid obesity/hypertension Complicates care, management, recovery and prognosis. Continue home medications as indicated. This note was generated with [employer] dictation software. It may contain incorrect words, spelling, and punctuation that were not noted in checking the note before signing. Subjective Subjective The patient was seen and examined at the bedside this morning. Events from the last 24 hours have been reviewed. The patient is currently afebrile, hemodynamically stable and maintaining appropriate oxygen saturations on Airvo currently with an FiO2 requirement of 58% and flow rate of 60 L/min. The patient is currently documented to be overall net +3.2 L for the hospitalization. The patient remains on Decadron, baricitinib and Lovenox. Liver and renal function are stable. Objective Data Objective Data The patient's most recent lab work, culture data and imaging studies have all been personally reviewed. Coronavirus PCR was positive on November 08. CTA dated November 08 was negative for PE. Vital Signs: Vital Signs Temp Pulse Resp BP Pulse Ox 98.0 F 70 20 H 119/86 H 97 11/14/21 04:09 11/14/21 04:09 11/14/21 04:09 11/14/21 04:09 11/14/21 04:09 Oxygen Flow Rate (L/min) 60 Oxygen Delivery Method Airvo Weight: 140.6 kg Body Mass Index (BMI) 40.8 Intake & Output: Intake and Output for Last 24 Hours 11/12/21 11/13/21 11/14/21 23:59 23:59 23:59 Intake Total 3700 / 3700 2200 / 2200 Output Total 3300 / 3300 2300 / 3050 950 / 950 Balance 400 / 400 -100 / -850 -950 / -950 Medical Nutrition Assessment Dietitian: Malnutrition Criteria Met Start: 11/09/21 12:51 Freq: Status: Active Protocol: Document 11/09/21 12:51 (Rec: 11/09/21 12:51 [id number]) Nutrition Malnutrition Evidence of Malnutrition Exists Yes Malnutrition (moderate): Acute Illness/Injury Evidenced By Suboptimal Energy Intake ( Moderate),Weight Loss ( Moderate) Clinical Problem Acute Disease or Injury Related Malnutrition Etiology moderate, acute malnutrition r /t inadequate energy intake d/ t COVID illness Signs/Symptoms as evidenced by estimated PO intake meeting <75% of estimated energy needs >1 week , unintentional 11#/3.4% wt loss x 2 weeks Status Active Problem Recommendation Dietitian Recommendations/Changes continue regular diet as tolerated; ensure compact w/ meals if PO intake declines Lab / Micro Data Attestation: I reviewed the patient's lab results. Result Diagrams: 11/14/21 06:02 11/14/21 06:02 Labs: Laboratory Results - last 24 hr 11/14/21 06:02: WBC 10.5, RBC 4.79, Hgb 13.2, Hct 40.0, MCV 83.5, MCH 27.6, MCHC 33.0, RDW Std Deviation 36.8, RDW Coeff of Ifeoma 12.1, Plt Count 344, MPV 9.2, Neut % (Auto) Not Reportable, Absolute Neuts (auto) 8.6 H, Absolute Lymphs (auto) 0.94, Total Counted 100, Neutrophils % (Manual) 82 H, Lymphocytes % (Manual) 9 L, Monocytes % (Manual) 6, Eosinophils % (Manual) 2, Myelocytes % 1 H , Diff Path Review May foll, Platelet Estimate ADEQUATE, RBC Morphology NORM C+C 11/14/21 06:02: Sodium 130 L, Potassium 4.0, Chloride 95 L, Carbon Dioxide 28.0, Anion Gap 7, BUN 18, Creatinine 0.67 L, Estim Creat Clear Calc 140.79, Est GFR (MDRD) Af Amer 158, Est GFR (MDRD) Non-Af 130, BUN/Creatinine Ratio 26.8 H, Glucose 86, Calcium 8.6, Total Bilirubin 0.70, AST 29, ALT 38, Alkaline Phosphatase 60, Total Protein 7.2, Albumin 2.4 L, Globulin 4.8 H, Albumin/Globulin Ratio 0.5 L Micro: Microbiology 11/08/21 17:55 Blood Culture (Wb) - Anticubital Left Blood Culture - Final No growth in 5 days. 11/08/21 19:53 Blood Culture (Wb) - Anticubital Right Blood Culture - Final No growth in 5 days. 11/08/21 17:55 Nasal Secretion SARS-CoV-2 Antigen (Rapid) - Final Physical Exam Const alert and no apparent distress Constitutional Narrative: Currently on Airvo. General Appearance: cooperative Nutritional Appearance: morbidly obese HEENT normocephalic and head/scalp atraumatic Eyes PERRL, EOMs intact bilaterally and conjunctivae normal Neck supple General: trachea midline Chest inspection of chest normal Resp Effort and Inspection: tachypneic Auscultation: diminished lung sounds Cardio S1 normal heart sound and S2 normal heart sound Rate: bradycardia GI normal to inspection, nondistended, normoactive bowel sounds Extremity no clubbing, cyanosis or edema Skin no rashes or lesions noted Neuro CN's II-XII intact bilaterally, moves all extremities and no focal motor deficits Psych Mood & Affect: flat affect Charges/Coding Visit Charges Inpatient E&M: 38936 Subs Hosp L2
[2021-11-14] MEDS: Potassium Chloride Oral Tablet 20 MEQ 40 MEQ PO (10:12)
[2021-11-14] MEDS: Enoxaparin 40 MG/0.4 ML Syringe SC ×2 (10:13→21:31)
[2021-11-14] MEDS: dexAMETHasone 2 MG TABLET 6 MG PO (10:13)
[2021-11-14] MEDS: Lisinopril 10 MG Tablet PO (10:13)
[2021-11-14] MEDS: guaiFENesin 1,200 MG Tablet 1200 MG PO ×2 (10:13→21:31)
[2021-11-14] MEDS: Pantoprazole Sodium 40 MG Tablet PO (10:13)
--- NOTE | 2021-11-14 14:00 | PN.HOSP_ITS ---
Subjective Subjective Patient is still on air Vo. Sedated not need BiPAP last night. Objective Data Objective Data Vital Signs: Vital Signs Temp Pulse Resp BP Pulse Ox 97.9 F 72 20 H 123/58 H 92 11/14/21 10:00 11/14/21 10:00 11/14/21 10:00 11/14/21 10:00 11/14/21 10:00 Oxygen Flow Rate (L/min) 60 Oxygen Delivery Method Airvo Weight: 309 lb 15.519 oz Body Mass Index (BMI) 40.8 Intake & Output: Intake and Output for Last 24 Hours 11/12/21 11/13/21 11/14/21 23:59 23:59 23:59 Intake Total 3700 / 3700 2200 / 2200 Output Total 3300 / 3300 2300 / 3050 950 / 950 Balance 400 / 400 -100 / -850 -950 / -950 Medical Nutrition Assessment Dietitian: Malnutrition Criteria Met Start: 11/09/21 12:51 Freq: Status: Active Protocol: Document 11/09/21 12:51 (Rec: 11/09/21 12:51 [id number]) Nutrition Malnutrition Evidence of Malnutrition Exists Yes Malnutrition (moderate): Acute Illness/Injury Evidenced By Suboptimal Energy Intake ( Moderate),Weight Loss ( Moderate) Clinical Problem Acute Disease or Injury Related Malnutrition Etiology moderate, acute malnutrition r /t inadequate energy intake d/ t COVID illness Signs/Symptoms as evidenced by estimated PO intake meeting <75% of estimated energy needs >1 week , unintentional 11#/3.4% wt loss x 2 weeks Status Active Problem Recommendation Dietitian Recommendations/Changes continue regular diet as tolerated; ensure compact w/ meals if PO intake declines Lab / Micro Data Result Diagrams: 11/14/21 06:02 11/14/21 06:02 Labs: Laboratory Results - last 24 hr 11/14/21 06:02: WBC 10.5, RBC 4.79, Hgb 13.2, Hct 40.0, MCV 83.5, MCH 27.6, MCHC 33.0, RDW Std Deviation 36.8, RDW Coeff of Ifeoma 12.1, Plt Count 344, MPV 9.2, Neut % (Auto) Not Reportable, Absolute Neuts (auto) 8.6 H, Absolute Lymphs (auto) 0.94, Total Counted 100, Neutrophils % (Manual) 82 H, Lymphocytes % (Manual) 9 L, Monocytes % (Manual) 6, Eosinophils % (Manual) 2, Myelocytes % 1 H , Diff Path Review March, Platelet Estimate ADEQUATE, RBC Morphology NORM C+C 11/14/21 06:02: Sodium 130 L, Potassium 4.0, Chloride 95 L, Carbon Dioxide 28.0, Anion Gap 7, BUN 18, Creatinine 0.67 L, Estim Creat Clear Calc 140.79, Est GFR (MDRD) Af Amer 158, Est GFR (MDRD) Non-Af 130, BUN/Creatinine Ratio 26.8 H, Glucose 86, Calcium 8.6, Total Bilirubin 0.70, AST 29, ALT 38, Alkaline Phosphatase 60, Total Protein 7.2, Albumin 2.4 L, Globulin 4.8 H, Albumin/G lobulin Ratio 0.5 L Micro: Microbiology 11/08/21 17:55 Blood Culture (Wb) - Anticubital Left Blood Culture - Final No growth in 5 days. 11/08/21 19:53 Blood Culture (Wb) - Anticubital Right Blood Culture - Final No growth in 5 days. 11/08/21 17:55 Nasal Secretion SARS-CoV-2 Antigen (Rapid) - Final Physical Exam Narrative Seen and examined General: Alert, Oriented x3, Cooperative HEENT: Atraumatic, PERRLA, EOMI, Normocephalic Oral: No Gingival or Mucosal Lesions/ Ulcerations Neck: Supple, No JVD, Negative Carotid Bruits Lungs: Air entry diminished in bilateral lung bases. Severe hypoxia. On air Vo Cardiovascular: Regular rate, Regular Rhythm, Normal S1, Normal S2, No murmurs Abdomen: Bowel Sounds Present, Soft, Non Tender, Non-Distended : No renal angle tenderness. No suprapubic tenderness. Extremities: No edema, Capillary Refill Less than 3 Seconds Skin: No rashes, No breakdown Musculoskeletal: No Tenderness to Palpation of Joints or Extremities. ROM full Neurological: Cranial nerves II-XII grossly intact, DTR 2+/4. Psych/Mental Status: Flat affect. Assessment & Plan Assessment/Plan (1) COVID-19: (2) Respiratory failure: QUALIFIERS: Chronicity: acute Respiratory failure complication: hypoxia Qualified Code(s): J96.01 - Acute respiratory failure with hypoxia PLAN: The patient is admitted for acute hypoxic respiratory failure secondary to bilateral COVID-19 pneumonia. CTA does not show evidence of PE or arterial dissection but bilateral pneumonia viral. On dexamethasone. Patient seen by contact lens blocker and cutter and ID. Started on baricitinib 4 mg daily for 2 weeks. Continue dexamethasone. Awake prone positioning. Inflammatory markers elevated including ferritin, CRP, D-dimer. Procalcitonin normal. If patient FiO2 requirement goes high will need transfer to ICU for further management. Mild hyponatremia: Sodium 133. 11/12 serum sodium low 129 11/12: Blood pressure running low. HCTZ discontinued. And patient has hyponatremia. Lisinopril dose decreased to once daily 10 mg with holding parameters 11/13/21: Patient 1 dose of Lasix 40 mg. BP 131/75, 118/72. Patient is still dependent on BiPAP and air Vo. I told him that there is no exact date of discharge but depends on improvement on coming out of BiPAP and NIPPV. Encouraged about incentive spirometry and Pep. Prone positioning. 11/14: Still on air Vo. Patient has hyponatremia, sodium 130 probably due to diuretic. Diuretic not given today. Morbid obesity, hypertension: Blood pressure 123/58. Patient never has been a smoker. Bilateral knee arthritis: PT and OT. Charges/Coding Visit Charges Inpatient E&M: 73157 Subs Hosp L2
[2021-11-15] VITALS (15 sets, daily range): BP systolic 112–133; BP diastolic 69–81; PULSE 61–79; RESP 15–20; TEMP 36.4–36.9; O2SAT 94–98
[2021-11-15] MEDS: Calcium Carbonate 500 MG Tablet PO (02:53)
[2021-11-15 07:18] LABS: Absolute Lymphocyte Count 0.53 X10^3/uL (0.83-4.51); Absolute Neutrophil Count 18.3 X10^3/uL (2.0-7.7); Basophil# 0.05 X10^3/uL; Basophil% 0.2 % (0-1); Eosinophil# 0.07 X10^3/uL; Eosinophils% 0.3 % (0-5); Hematocrit 37.1 % (40-54); Hemoglobin 12.4 g/dL (13.0-16.5); Lymphocyte # 0.53 X10^3/ul (0.83-4.51); Lymphocyte % 2.6 % (19-41); Mean Corp Hgb Conc 33.4 g/dL (32-36); Mean Corpuscular Hgb 27.7 pg (27.0-32.0); Mean Corpuscular Volume 82.8 fL (80-94); Mean Platelet Vol. 9.3 fl (6.2-12.0); Monocyte# 1.14 X10^3/uL; Monocyte% 5.5 % (0-10); NRBC Flagged by Analyzer 0 % (0-5); Neutrophil # 18.29 X10^3/uL (2.7-7.7); Neutrophil % 88.8 % (47-70); POSITIVE DIFFERENTIAL YES; Platelet Count 359 K/mm3 (150-450); RBC Distribution Width CV 12.2 % (11.6-14.6); RBC Distribution Width SD 36.9 fl (35.1-43.9); Red Blood Count 4.48 M/mm3 (4.6-6.2); White Blood Count 20.6 K/mm3 (4.4-11.0)
[2021-11-15 07:32] LABS: Differential Indicated SCAN CRITERIA MET
[2021-11-15 07:57] LABS: ALB/GLOB Ratio 0.5 RATIO (0.9-2.4); AST(SGOT) 28 U/L (15-37); Alanine Aminotransfer ALT/SGPT 35 U/L (16-61); Albumin, Serum 2.3 g/dL (3.2-5.0); Alkaline Phosphatase 51 U/L (45-117); Anion Gap 10 (5-15); BUN 20 mg/dL (7-18); BUN/Creat Ratio 31.8 RATIO (10-20); Calcium,Total 8.5 mg/dL (8.5-10.1); Chloride 95 mmol/L (98-107); Creatinine, Serum 0.63 mg/dL (0.70-1.30); EST Glomerular Filtration Rate 141 mL/min (>60); Est Glom Filt Rate - Afr Amer 170 mL/min (>60); Estimated Creatinine Clearance 149.72 ml/min; Globulin 4.5 g/dL (2.2-4.2); Glucose 86 mg/dL (74-106); Potassium 3.5 mmol/L (3.5-5.1); Protein, Total 6.8 g/dL (6.4-8.2); Sodium Level 127 mmol/L (136-145)
[2021-11-15] MEDS: Enoxaparin 40 MG/0.4 ML Syringe SC ×2 (08:46→22:10)
[2021-11-15] MEDS: dexAMETHasone 2 MG TABLET 6 MG PO (08:46)
[2021-11-15] MEDS: guaiFENesin 1,200 MG Tablet 1200 MG PO ×2 (08:46→22:10)
[2021-11-15] MEDS: Pantoprazole Sodium 40 MG Tablet PO (08:46)
[2021-11-15] MEDS: Potassium Chloride Oral Tablet 20 MEQ 40 MEQ PO (10:58)
[2021-11-15] MEDS: Furosemide 40 MG/4 ML Vial IV (10:58)
[2021-11-15] MEDS: 0.9% Saline Lock 10 ML Syringe IV (10:59)
--- NOTE | 2021-11-15 12:21 | PCM.PN.INT ---
Assessment & Plan Assessment/Plan (1) Respiratory failure: QUALIFIERS: Chronicity: acute Respiratory failure complication: hypoxia Qualified Code(s): J96.01 - Acute respiratory failure with hypoxia (2) COVID-19: PLAN: RECOMMENDATIONS: 1. Continue to wean FiO2 to maintain oxygen saturations at or above 90%. 2. Continue Decadron (11/18/2021) to complete 10 days of therapy. 3. Continue Lovenox as ordered. 4. Continue baricitinib (11/24/2021) per ID recommendations. 5. Awake prone positioning was encouraged. 6. Diuretics, as needed, to maintain euvolemic state. IMPRESSIONS: 1. Acute hypoxemic respiratory failure secondary to COVID-19 pneumonia The patient initially presented to the hospital on November 08 after he was found to be hypoxemic at his primary care physician's office. The patient was subsequently found to be positive for COVID-19. CTA chest was negative for PE but did demonstrate bilateral ground glass opacities. Patient reported symptoms have been present for several weeks. Therefore, the patient will be continued on Decadron, baricitinib and Lovenox as ordered. Respiratory status appears to have stabilized on current therapy. Continue to wean FiO2 as tolerated for saturations greater than 90%. Awake prone positioning is encouraged. Diuretics can be utilized, as needed, to maintain euvolemic state. Start empiric antimicrobials if clinical status worsens. 2. Morbid obesity/hypertension/unvaccinated status Complicates care, management, recovery and prognosis. Continue home medications as indicated. This note was generated with [email or web address] dictation software. It may contain incorrect words, spelling, and punctuation that were not noted in checking the note before signing. Subjective Subjective Patient did okay overnight. Patient subjectively feels slightly improved compared to yesterday. Patient was working with therapy on my evaluation and was reporting significant dyspnea on exertion. Patient denies any chest pain and believes he is tolerating exertion better than yesterday. Objective Data Objective Data Vital Signs: Vital Signs Temp Pulse Resp BP Pulse Ox 36.4 C L 70 20 H 112/73 96 11/15/21 08:44 11/15/21 11:00 11/15/21 08:44 11/15/21 08:44 11/15/21 08:44 Oxygen Flow Rate (L/min) 10 Oxygen Delivery Method High Flow Weight: 140.6 kg Body Mass Index (BMI) 40.8 Intake & Output: Intake and Output for Last 24 Hours 11/13/21 11/14/21 11/15/21 23:59 23:59 23:59 Intake Total 2200 / 2200 1080 / 1080 Output Total 2300 / 3050 950 / 1350 1250 / 1250 Balance -100 / -850 -950 / -1050 -170 / -170 Medical Nutrition Assessment Dietitian: Malnutrition Criteria Met Start: 11/09/21 12:51 Freq: Status: Active Protocol: Document 11/09/21 12:51 AG (Rec: 11/09/21 12:51 AG [id number]) Nutrition Malnutrition Evidence of Malnutrition Exists Yes Malnutrition (moderate): Acute Illness/Injury Evidenced By Suboptimal Energy Intake ( Moderate),Weight Loss ( Moderate) Clinical Problem Acute Disease or Injury Related Malnutrition Etiology moderate, acute malnutrition r /t inadequate energy intake d/ t COVID illness Signs/Symptoms as evidenced by estimated PO intake meeting <75% of estimated energy needs >1 week , unintentional 11#/3.4% wt loss x 2 weeks Status Active Problem Recommendation Dietitian Recommendations/Changes continue regular diet as tolerated; ensure compact w/ meals if PO intake declines Lab / Micro Data Result Diagrams: 11/15/21 06:30 11/15/21 06:30 Labs: Laboratory Results - last 24 hr 11/15/21 06:30: WBC 20.6 H, RBC 4.48 L, Hgb 12.4 L, Hct 37.1 L, MCV 82.8, MCH 27.7, MCHC 33.4, RDW Std Deviation 36.9, RDW Coeff of Ifeoma 12.2, Plt Count 359, MPV 9.3, Immature Gran % (Auto) 2.600 H, Neut % (Auto) 88.8 H, Lymph % (Auto) 2.6 L, [place] % (Auto) 5.5, Eos % (Auto) 0.3, Baso % (Auto) 0.2, Absolute Neuts (auto) 18.3 H, Absolute Lymphs (auto) 0.53 L, Nucleated RBC % 0 11/15/21 06:30: Sodium 127 L, Potassium 3.5, Chloride 95 L, Carbon Dioxide 22.0, Anion Gap 10, BUN 20 H, Creatinine 0.63 L, Estim Creat Clear Calc 149.72, Est GFR (MDRD) Af Amer 170, Est GFR (MDRD) Non-Af 141, BUN/Creatinine Ratio 31.8 H, Glucose 86, Calcium 8.5, Total Bilirubin 1.00, AST 28, ALT 35, Alkaline Phosphatase 51, Total Protein 6.8, Albumin 2.3 L, Globulin 4.5 H, Albumin/Globulin Ratio 0.5 L Micro: Microbiology 11/08/21 17:55 Blood Culture (Wb) - Anticubital Left Blood Culture - Final No growth in 5 days. 11/08/21 19:53 Blood Culture (Wb) - Anticubital Right Blood Culture - Final No growth in 5 days. 11/08/21 17:55 Nasal Secretion SARS-CoV-2 Antigen (Rapid) - Final Physical Exam Const alert and no apparent distress Constitutional Narrative: Currently on Airvo. General Appearance: cooperative Nutritional Appearance: morbidly obese HEENT normocephalic and head/scalp atraumatic Eyes PERRL, EOMs intact bilaterally and conjunctivae normal Neck supple General: trachea midline Chest inspection of chest normal Resp Resp Narrative: Working with therapy during my evaluation Effort and Inspection: tachypneic Auscultation: diminished lung sounds; Negative for rales, rhonchi or wheezes Cardio S1 normal heart sound and S2 normal heart sound Heart Sounds: Negative for gallop, murmur or rub GI normal to inspection, nondistended, normoactive bowel sounds Extremity no clubbing, cyanosis or edema Skin no rashes or lesions noted Neuro CN's II-XII intact bilaterally, moves all extremities and no focal motor deficits Psych Mood & Affect: flat affect Charges/Coding Visit Charges Inpatient E&M: 27894 Subs Hosp L2
[2021-11-15 13:24] LABS: Pathologist Review Reviewed
[2021-11-15 13:45] LABS: Pathologist Review Reviewed
--- NOTE | 2021-11-15 16:29 | PN.HOSP_ITS ---
Subjective Subjective Patient on high flow oxygen 6 L. Improvement in oxygenation from 10 L to 6 L. Afebrile. Objective Data Objective Data Vital Signs: Vital Signs Temp Pulse Resp BP Pulse Ox 98.4 F 74 18 129/81 H 96 11/15/21 15:15 11/15/21 15:15 11/15/21 15:15 11/15/21 15:15 11/15/21 15:16 Oxygen Flow Rate (L/min) 6 Oxygen Delivery Method High Flow Weight: 309 lb 15.519 oz Body Mass Index (BMI) 40.8 Intake & Output: Intake and Output for Last 24 Hours 11/13/21 11/14/21 11/15/21 23:59 23:59 23:59 Intake Total 2200 / 2200 1080 / 1080 Output Total 2300 / 3050 950 / 1350 1250 / 1250 Balance -100 / -850 -950 / -1050 -170 / -170 Medical Nutrition Assessment Dietitian: Malnutrition Criteria Met Start: 11/09/21 12:51 Freq: Status: Active Protocol: Document 11/09/21 12:51 AG (Rec: 11/09/21 12:51 [id number]) Nutrition Malnutrition Evidence of Malnutrition Exists Yes Malnutrition (moderate): Acute Illness/Injury Evidenced By Suboptimal Energy Intake ( Moderate),Weight Loss ( Moderate) Clinical Problem Acute Disease or Injury Related Malnutrition Etiology moderate, acute malnutrition r /t inadequate energy intake d/ t COVID illness Signs/Symptoms as evidenced by estimated PO intake meeting <75% of estimated energy needs >1 week , unintentional 11#/3.4% wt loss x 2 weeks Status Active Problem Recommendation Dietitian Recommendations/Changes continue regular diet as tolerated; ensure compact w/ meals if PO intake declines Lab / Micro Data Result Diagrams: 11/15/21 06:30 11/15/21 06:30 Labs: Laboratory Results - last 24 hr 11/13/21 06:55: Diff Path Review Reviewed 11/14/21 06:02: Diff Path Review Reviewed 11/15/21 06:30: WBC 20.6 H, RBC 4.48 L, Hgb 12.4 L, Hct 37.1 L, MCV 82.8, MCH 27.7, MCHC 33.4, RDW Std Deviation 36.9, RDW Coeff of Ifeoma 12.2, Plt Count 359, MPV 9.3, Immature Gran % (Auto) 2.600 H, Neut % (Auto) 88.8 H, Lymph % (Auto) 2.6 L, [place] % (Auto) 5.5, Eos % (Auto) 0.3, Baso % (Auto) 0.2, Absolute Neuts (auto) 18.3 H, Absolute Lymphs (auto) 0.53 L, Nucleated RBC % 0 11/15/21 06:30: Sodium 127 L, Potassium 3.5, Chloride 95 L, Carbon Dioxide 22.0, Anion Gap 10, BUN 20 H, Creatinine 0.63 L, Estim Creat Clear Calc 149.72, Est GFR (MDRD) Af Amer 170, Est GFR (MDRD) Non-Af 141, BUN/Creatinine Ratio 31.8 H, Glucose 86, Calcium 8.5, Total Bilirubin 1.00, AST 28, ALT 35, Alkaline Phosphatase 51, Total Protein 6.8, Albumin 2.3 L, Globulin 4.5 H, Albumin/Globulin Ratio 0.5 L Micro: Microbiology 11/08/21 17:55 Blood Culture (Wb) - Anticubital Left Blood Culture - Final No growth in 5 days. 11/08/21 19:53 Blood Culture (Wb) - Anticubital Right Blood Culture - Final No growth in 5 days. 11/08/21 17:55 Nasal Secretion SARS-CoV-2 Antigen (Rapid) - Final Physical Exam Narrative Seen and examined General: Alert, Oriented x3, Cooperative HEENT: Atraumatic, PERRLA, EOMI, Normocephalic Oral: No Gingival or Mucosal Lesions/ Ulcerations Neck: Supple, No JVD, Negative Carotid Bruits Lungs: Air entry diminished in bilateral lung bases. No crepitation/rhonchi. On high flow oxygen. Cardiovascular: Regular rate, Regular Rhythm, Normal S1, Normal S2, No murmurs Abdomen: Bowel Sounds Present, Soft, Non Tender, Non-Distended : No renal angle tenderness. No suprapubic tenderness. Extremities: No edema, Capillary Refill Less than 3 Seconds Skin: No rashes, No breakdown Musculoskeletal: No Tenderness to Palpation of Joints or Extremities. ROM full Neurological: Cranial nerves II-XII grossly intact, DTR 2+/4. Psych/Mental Status: Flat affect. Assessment & Plan Assessment/Plan (1) COVID-19: (2) Respiratory failure: QUALIFIERS: Chronicity: acute Respiratory failure complication: hypoxia Qualified Code(s): J96.01 - Acute respiratory failure with hypoxia PLAN: The patient is admitted for acute hypoxic respiratory failure secondary to bilateral COVID-19 pneumonia. CTA does not show evidence of PE or arterial dissection but bilateral pneumonia viral. On dexamethasone. Patient seen by ror engineer and ID. Started on baricitinib 4 mg daily for 2 weeks. Continue dexamethasone. Awake prone positioning. Inflammatory markers elevated including ferritin, CRP, D-dimer. Procalcitonin normal. If patient FiO2 requirement goes high will need transfer to ICU for further management. Mild hyponatremia: Sodium 133. 11/12 serum sodium low 129 11/12: Blood pressure running low. HCTZ discontinued. And patient has hyponatremia. Lisinopril dose decreased to once daily 10 mg with holding parameters 11/13/21: Patient 1 dose of Lasix 40 mg. BP 131/75, 118/72. Patient is still dependent on BiPAP and air Vo. I told him that there is no exact date of discharge but depends on improvement on coming out of BiPAP and NIPPV. Encouraged about incentive spirometry and Pep. Prone positioning. 11/14: Still on air Vo. Patient has hyponatremia, sodium 130 probably due to diuretic. Diuretic not given today. 11/15: High flow oxygen 6 L. Afebrile. Patient has hyponatremia, sodium 127. Had 40 mg IV Lasix in the morning. Mild hypokalemia, potassium replaced. On dexamethasone, end date 11/17/2021 and baricitinib and date 11/24/2021 Morbid obesity, hypertension: Blood pressure 123/58. Continue lisinopril Patient never has been a smoker. Bilateral knee arthritis: PT and OT. Active Medications Albuterol Sulfate (Albuterol Ih 8.5 Gm (Proair) Inhaler (200 Puffs)) 2 puff INH ALATION Q4H PRN PRN PRN Reason: SOB &/OR WHEEZING Last Admin: 11/11/21 02:07 Dose: 2 puff Documented by: Baricitinib (Baricitinib 2 Mg Tablet) 4 mg PO DAILY LEONARD Stop: 11/24/21 10:01 Last Admin: 11/15/21 08:46 Dose: 4 mg Documented by: Calcium Carbonate (Calcium Carbonate 500 Mg Tablet) 500 mg PO Q6H PRN PRN PRN Reason: upset stomach Last Admin: 11/15/21 02:53 Dose: 500 mg Documented by: Dexamethasone (Dexamethasone 2 Mg Tablet) 6 mg PO DAILY [facility] Last Admin: 11/15/21 08:46 Dose: 6 mg Documented by: Enoxaparin Sodium (Enoxaparin 40 Mg/0.4 Ml Syringe) 40 mg SC BID [facility] Last Admin: 11/15/21 08:46 Dose: 40 mg Documented by: Guaifenesin (Guaifenesin 1,200 Mg Tablet) 1,200 mg PO BID [facility] Last Admin: 11/15/21 08:46 Dose: 1,200 mg Documented by: Sodium Chloride () 250 mls @ 15 mls/hr IV .[id number] PRN PRN Reason: Saline Flush Sodium Chloride () 250 mls @ 15 mls/hr IV .[id number] PRN PRN Reason: Additional IVPB Infusion Lisinopril (Lisinopril 10 Mg Tablet) 10 mg PO DAILY [facility] Last Admin: 11/15/21 08:47 Dose: Not Given Documented by: Lorazepam (Lorazepam 2 Mg/Ml Syringe) 0.5 mg IV Q4H PRN PRN PRN Reason: ANXIETY Last Admin: 11/12/21 21:11 Dose: 0.5 mg Documented by: Miscellaneous Information (Inhaler, Assist Devices 1 Each Spacer) 1 each INHALATION PRN PRN PRN Reason: WITH ALBUTEROL INHALER Last Admin: 11/11/21 02:07 Dose: 1 each Documented by: Pantoprazole Sodium (Pantoprazole Sodium 40 Mg Tablet) 40 mg PO DAILY [facility] Last Admin: 11/15/21 08:46 Dose: 40 mg Documented by: Sodium Chloride (0.9% Saline Lock 10 Ml Syringe) 10 - 40 ml IV UD PRN PRN Reason: SALINE FLUSH Last Admin: 11/15/21 10:59 Dose: 10 ml Documented by: Charges/Coding Visit Charges Inpatient E&M: 84654 Subs Hosp L2
[2021-11-16] VITALS (8 sets, daily range): BP systolic 100–161; BP diastolic 63–88; PULSE 59–86; RESP 17–22; TEMP 35–36.3; O2SAT 87–97
[2021-11-16 07:54] LABS: Absolute Lymphocyte Count 0.84 X10^3/uL (0.83-4.51); Absolute Neutrophil Count 14.6 X10^3/uL (2.0-7.7); Basophil# 0.04 X10^3/uL; Basophil% 0.2 % (0-1); Eosinophil# 0.07 X10^3/uL; Eosinophils% 0.4 % (0-5); Hematocrit 39.1 % (40-54); Hemoglobin 13.5 g/dL (13.0-16.5); Lymphocyte # 0.84 X10^3/ul (0.83-4.51); Mean Corp Hgb Conc 34.5 g/dL (32-36); Mean Corpuscular Hgb 27.8 pg (27.0-32.0); Mean Corpuscular Volume 80.5 fL (80-94); Mean Platelet Vol. 9.8 fl (6.2-12.0); Monocyte# 1.04 X10^3/uL; Monocyte% 6.1 % (0-10); NRBC Flagged by Analyzer 0 % (0-5); Neutrophil # 14.58 X10^3/uL (2.7-7.7); Neutrophil % 86.1 % (47-70); Platelet Count 341 K/mm3 (150-450); RBC Distribution Width CV 12.4 % (11.6-14.6); Red Blood Count 4.86 M/mm3 (4.6-6.2); White Blood Count 16.9 K/mm3 (4.4-11.0)
[2021-11-16 08:26] LABS: ALB/GLOB Ratio 0.5 RATIO (0.9-2.4); AST(SGOT) 23 U/L (15-37); Alanine Aminotransfer ALT/SGPT 37 U/L (16-61); Albumin, Serum 2.5 g/dL (3.2-5.0); Alkaline Phosphatase 59 U/L (45-117); Anion Gap 10 (5-15); BUN 19 mg/dL (7-18); BUN/Creat Ratio 27.7 RATIO (10-20); Calcium,Total 8.8 mg/dL (8.5-10.1); Chloride 96 mmol/L (98-107); Creatinine, Serum 0.68 mg/dL (0.70-1.30); EST Glomerular Filtration Rate 127 mL/min (>60); Est Glom Filt Rate - Afr Amer 154 mL/min (>60); Estimated Creatinine Clearance 138.72 ml/min; Globulin 4.9 g/dL (2.2-4.2); Glucose 73 mg/dL (74-106); Potassium 3.5 mmol/L (3.5-5.1); Protein, Total 7.4 g/dL (6.4-8.2); Sodium Level 130 mmol/L (136-145)
[2021-11-16] MEDS: dexAMETHasone 2 MG TABLET 6 MG PO (09:28)
[2021-11-16] MEDS: Enoxaparin 40 MG/0.4 ML Syringe SC (09:29)
[2021-11-16] MEDS: Pantoprazole Sodium 40 MG Tablet PO (09:30)
[2021-11-16] MEDS: guaiFENesin 1,200 MG Tablet 1200 MG PO (09:30)
--- NOTE | 2021-11-16 11:07 | DCINST_ITS ---
Discharge Instructions Diet Discharge Diet: Low fat / Low cholesterol and 2000 mg Sodium Diet Activity Discharge Activity: Return to Normal Activity and May Not Drive Additional Activity Instructions:: Discontinue quarantine from 11/17/2021 Dressing / Incision Call your doctor if you observe: Fever of 101 or Higher, Coldness, Increased Pain, Numbness or Tingling, Inability to urinate, Inability to have a bowel movement, Shortness of breath, Dizziness, Fainting spells, Swelling in the ankles, Chest pain, Prolonged hiccupping, Increased palpitations (irregular heartbeat), Calf discomfort and Uncontrolled pain Follow Up Care Test Results: Test results from this visit will be discussed in further detail at your follow-up appointment, if applicable. Discharge Plan Admission Admit Date/Time: 11/08/21 21:20 Primary Reason for Your Visit: Bilateral COVID-19 pneumonia Attending Provider: Mike Patton Primary Care Provider: Brigido Vigil Consulting Providers: Angel Way ; Robert Velazquez ; Alex Duran ; Janna Menchaca [employer]ATFORM [employer] SUPER[employer]OR Instructions Additional Instructions / Restrictions: Continue incentive spirometry and Pep at home Discharge Orders/Prescriptions Prescriptions: New pantoprazole 40 mg Tablet,Delayed Release (Dr/Ec) 40 mg PO DAILY Qty: 30 RF: 0 Mucus Relief ER 1,200 mg Tablet Extended Release 12hr 1,200 mg PO BID Qty: 14 RF: 0 dexamethasone [Decadron] 6 mg tablet 6 mg PO DAILY Qty: 1 RF: 0 Eliquis 2.5 mg tablet 2.5 mg PO BID Qty: 30 RF: 0 Continued lisinopril-hydrochlorothiazide 10-12.5 mg tablet 1 tab PO BID Qty: 0 RF: 0 Referrals / Follow Up: Brigido Vigil MD [Primary Care Provider] - In 1 Week Disposition Disposition (needs filled in before D/C Order can be placed): Home, Self Care
--- NOTE | 2021-11-16 12:08 | DS.PCM_ITS ---
Providers Date of Admission: 11/08/21 Primary Care Physician: Dr. Brigido Vigil MD Consultations 11/10/21 12:45 Consult: Infectious Disease Routine Consulting Provider: Angel Way Reason for Consult: COVID-19 infection EMERGENT Consult: No Notified: Yes Date Notified: 11/10/21 Time Notified: 12:45 Method of Notification: Answering Service Consult: Assistant Teacher Primary / Pulmonary Medicine Routine Consulting Provider: Pulmonary Medicine [facility] Reason for Consult: COVID-19 infection EMERGENT Consult: No Notified: Yes Date Notified: 11/10/21 Time Notified: 12:45 Method of Notification: Text Reason For Visit: RESPIRATORY FAILURE, PNEUMONIA Diagnosis Discharge Diagnosis (1) COVID-19: Status: Acute Code(s): U07.1 - COVID-19 (2) Respiratory failure: Status: Acute Code(s): J96.90 - Respiratory failure, unspecified, unspecified whether with hypoxia or hypercapnia Qualifiers: Chronicity: acute Respiratory failure complication: hypoxia Qualified Code(s): J96.01 - Acute respiratory failure with hypoxia Medications at Discharge Home Medications apixaban [Eliquis] 2.5 mg PO BID #30 tab 11/16/21 dexamethasone [Decadron] 6 mg PO DAILY #1 tab 11/16/21 guaifenesin [Mucus Relief ER] 1,200 mg PO BID #14 tab 11/16/21 lisinopril-hydrochlorothiazide 1 tab PO BID #0 tab 11/16/21 pantoprazole 40 mg PO DAILY #30 tab 11/16/21 Hospital Course Summary of Care Provided Hospital Course: The patient is admitted for acute hypoxic respiratory failure secondary to bilateral COVID-19 pneumonia. CTA does not show evidence of PE or arterial dissection but bilateral pneumonia viral. On dexamethasone. Patient seen by church warden and ID. Started on baricitinib 4 mg daily for 2 weeks. Continue dexamethasone. Patient followed awake prone positioning. Inflammatory markers elevated including ferritin, CRP, D-dimer. Procalcitonin normal. P atient was managed with high flow oxygen, BiPAP, air Vo and subsequently improved. Patient has 1 day left of dexamethasone for tomorrow. Prescription given for dexamethasone, Mucinex D and Eliquis 2.5 mg twice daily. Continue incentive spirometry, Pep and Mucinex at home. Mild hyponatremia: Sodium 133. Patient was monitored daily with CMP and CBC for being COVID-19 severe pneumonia. Serum sodium stable at 130. Morbid obesity: Patient advised weight loss hypertension: Blood pressure 123/58. Continue lisinopril Patient never has been a smoker. Bilateral knee arthritis: PT and OT. Discharge medication reconciliation done. Discharge follow-up instructions completed. Discharge process discussed with the patient and all questions were answered to patient's satisfaction. Follow-up in pulmonary clinic in 4 to 6 weeks Total time spent, exact 35 minutes on discharge meds reconciliation, examination, coordination of care with nurses and ancillary staff, review of imaging and blood test and discussion with the patient on follow-up instructions Physical Exam Narrative Seen and examined Patient oxygen requirement decreased to 3 L at rest and 4 L on ambulation General: Alert, Oriented x3, Cooperative, morbid obesity BMI 40.9 kg/min risk HEENT: Atraumatic, PERRLA, EOMI, Normocephalic Oral: No Gingival or Mucosal Lesions/ Ulcerations Neck: Supple, No JVD, Negative Carotid Bruits Lungs: Air entry diminished in bilateral lung bases. No crepitation/rhonchi. No tachypnea. Cardiovascular: Regular rate, Regular Rhythm, Normal S1, Normal S2, No murmurs Abdomen: Bowel Sounds Present, Soft, Non Tender, Non-Distended : No renal angle tenderness. No suprapubic tenderness. Extremities: No edema, Capillary Refill Less than 3 Seconds Skin: No rashes, No breakdown Musculoskeletal: No Tenderness to Palpation of Joints or Extremities. ROM full Neurological: Cranial nerves II-XII grossly intact, DTR 2+/4. Psych/Mental Status: Flat affect. Medical Records Data Medical Nutrition Assessment Dietitian: Malnutrition Criteria Met Start: 11/09/21 12:51 Freq: Status: Active Protocol: Document 11/09/21 12:51 AG (Rec: 11/09/21 12:51 AG [id number]) Nutrition Malnutrition Evidence of Malnutrition Exists Yes Malnutrition (moderate): Acute Illness/Injury Evidenced By Suboptimal Energy Intake ( Moderate),Weight Loss ( Moderate) Clinical Problem Acute Disease or Injury Related Malnutrition Etiology moderate, acute malnutrition r /t inadequate energy intake d/ t COVID illness Signs/Symptoms as evidenced by estimated PO intake meeting <75% of estimated energy needs >1 week , unintentional 11#/3.4% wt loss x 2 weeks Status Active Problem Recommendation Dietitian Recommendations/Changes continue regular diet as tolerated; ensure compact w/ meals if PO intake declines Weight / BMI Weight Weight: 309 lb 15.519 oz Body Mass Index (BMI) 40.8 ABG / Lab / Microbiology Data Result Diagrams: 11/16/21 06:53 11/16/21 06:53 Laboratory: Laboratory Results - last 24 hr 11/13/21 06:55: Diff Path Review Reviewed 11/14/21 06:02: Diff Path Review Reviewed 11/16/21 06:53: WBC 16.9 H, RBC 4.86, Hgb 13.5, Hct 39.1 L, MCV 80.5, MCH 27.8, MCHC 34.5, RDW Std Deviation 36.0, RDW Coeff of Ifeoma 12.4, Plt Count 341, MPV 9.8, Immature Gran % (Auto) 2.200 H, Neut % (Auto) 86.1 H, Lymph % (Auto) 5.0 L, [place] % (Auto) 6.1, Eos % (Auto) 0.4, Baso % (Auto) 0.2, Absolute Neuts (auto) 14.6 H, Absolute Lymphs (auto) 0.84, Nucleated RBC % 0 11/16/21 06:53: Sodium 130 L, Potassium 3.5, Chloride 96 L, Carbon Dioxide 24.0, Anion Gap 10, BUN 19 H, Creatinine 0.68 L, Estim Creat Clear Calc 138.72, Est GFR (MDRD) Af Amer 154, Est GFR (MDRD) Non-Af 127, BUN/Creatinine Ratio 27.7 H, Glucose 73 L, Calcium 8.8, Total Bilirubin 0.80, AST 23, ALT 37, Alkaline Phosphatase 59, Total Protein 7.4, Albumin 2.5 L, Globulin 4.9 H, Albumin/Globulin Ratio 0.5 L Microbiology: Microbiology 11/08/21 17:55 Blood Culture (Wb) - Anticubital Left Blood Culture - Final No growth in 5 days. 11/08/21 19:53 Blood Culture (Wb) - Anticubital Right Blood Culture - Final No growth in 5 days. 11/08/21 17:55 Nasal Secretion SARS-CoV-2 Antigen (Rapid) - Final Meaningful Use Info Meaningful Use Diagnoses (Choose all that apply): None applicable Discharge Plan Admission Admit Date/Time: 11/08/21 21:20 Primary Reason for Your Visit: Bilateral COVID-19 pneumonia Attending Provider: Mike Patton Primary Care Provider: Brigido Vigil Consulting Providers: Angel Way ; Robert Velazquez ; Alex Duran ; Janna Menchaca PICKER/PULLER Instructions Additional Instructions / Restrictions: Continue incentive spirometry and Pep at home Discharge Orders/Prescriptions Prescriptions: New pantoprazole 40 mg Tablet,Delayed Release (Dr/Ec) 40 mg PO DAILY Qty: 30 RF: 0 Mucus Relief ER 1,200 mg Tablet Extended Release 12hr 1,200 mg PO BID Qty: 14 RF: 0 dexamethasone [Decadron] 6 mg tablet 6 mg PO DAILY Qty: 1 RF: 0 Eliquis 2.5 mg tablet 2.5 mg PO BID Qty: 30 RF: 0 Continued lisinopril-hydrochlorothiazide 10-12.5 mg tablet 1 tab PO BID Qty: 0 RF: 0 Referrals / Follow Up: Brigido Vigil MD [Primary Care Provider] - In 1 Week Robert Velazquez MD [STAFF PHYSICIAN] - Within 1 Month Disposition Disposition (needs filled in before D/C Order can be placed): Home, Self Care
--- NOTE | 2021-11-16 12:41 | CASEMGMT ---
Addendum entered by Daly Martinez 11/16/21 14:27: Pt does not have insurance but is aware of [facility] for home oxygen and is also updated on Eliquis and coupon. Per [facility] retail pharmacy, pt's other meds cost $39.20 and pt states no concerns. Pt voices no further questions/concerns/needs. [facility] CM Original Note: Per [facility], pt qualifies for 3L at rest and 4L w/ exertion home oxygen and had stated no preference for DME company. Order faxed to [facility] and call to David Blakely to notify of referral. Pt to use [employer] e-tank already provided to [facility]. Pt updated on home oxygen and liter flow, voices understanding. Pt is independent in room and states no concerns with going home at discharge. Pt voices no further questions/concerns/needs. [facility] CM
--- NOTE | 2021-11-16 15:07 | PN.CC_ITS ---
Assessment & Plan Assessment/Plan (1) Respiratory failure: QUALIFIERS: Chronicity: acute Respiratory failure complication: hypoxia Qualified Code(s): J96.01 - Acute respiratory failure with hypoxia (2) COVID-19: PLAN: RECOMMENDATIONS: 1. Continue to wean FiO2 to maintain oxygen saturations at or above 90%. 2. Continue Decadron (11/18/2021) to complete 10 days of therapy. 3. Continue Lovenox as ordered. 4. Okay to discontinue baricitinib on discharge 5. Okay to discharge from pulmonary perspective 6. Follow-up in the pulmonary office in 4 to 6 weeks for evaluation 7. Obtain pulse ox for home IMPRESSIONS: 1. Acute hypoxemic respiratory failure secondary to COVID-19 pneumonia The patient initially presented to the hospital on November 08 after he was found to be hypoxemic at his primary care physician's office. The patient was subsequently found to be positive for COVID-19. CTA chest was negative for PE but did demonstrate bilateral ground glass opacities. Patient reported symptoms have been present for several weeks. Therefore, the patient will be continued on Decadron, baricitinib and Lovenox as ordered. Respiratory status appears to have stabilized on current therapy. Continue to wean FiO2 as tolerated for saturations greater than 90%. Patient with significant improvement over last 24 hours. Walking oximetry shows control of hypoxia with less than 6 L of oxygen. Okay to discharge from a pulmonary perspective. Patient should follow-up in our office in 4 to 6 weeks for cessation of supplemental oxygen. Patient was advised on how to properly use a pulse ox to wean supplemental oxygen. Patient will likely need a work-up for sleep apnea as an outpatient also. 2. Morbid obesity/hypertension/unvaccinated status Complicates care, management, recovery and prognosis. Continue home medications as indicated. This note was generated with [employer] dictation software. It may contain incorrect words, spelling, and punctuation that were not noted in checking the note before signing. Subjective Subjective Patient did okay overnight. No acute issues are reported. Patient subjectively feels improved compared to yesterday. Patient is still having some coughing with deep inhalation. Patient is reporting mild production with no hemoptysis. Objective Data Objective Data Vital Signs: Vital Signs Temp Pulse Resp BP Pulse Ox 35 C L 78 20 H 161/88 H 97 11/16/21 14:48 11/16/21 14:48 11/16/21 14:48 11/16/21 14:48 11/16/21 14:48 Oxygen Flow Rate (L/min) [ 4 AMBULATING with Oxygen #2] Oxygen Flow Rate (L/min) [ 3 AMBULATING with Oxygen #1] Oxygen Flow Rate (L/min) [At 3 REST with Oxygen] Oxygen Flow Rate (L/min) 4 Oxygen Delivery Method Nasal Cannula Weight: 140.6 kg Body Mass Index (BMI) 40.8 Intake & Output: Intake and Output for Last 24 Hours 11/14/21 11/15/21 11/16/21 23:59 23:59 23:59 Intake Total 1320 / 1320 800 / 800 Output Total 950 / 1350 2150 / 2150 700 / 700 Balance -950 / -1050 -830 / -830 100 / 100 Medical Nutrition Assessment Dietitian: Malnutrition Criteria Met Start: 11/09/21 12:5 1 Freq: Status: Active Protocol: Document 11/09/21 12:51 AG (Rec: 11/09/21 12:51 AG [id number]) Nutrition Malnutrition Evidence of Malnutrition Exists Yes Malnutrition (moderate): Acute Illness/Injury Evidenced By Suboptimal Energy Intake ( Moderate),Weight Loss ( Moderate) Clinical Problem Acute Disease or Injury Related Malnutrition Etiology moderate, acute malnutrition r /t inadequate energy intake d/ t COVID illness Signs/Symptoms as evidenced by estimated PO intake meeting <75% of estimated energy needs >1 week , unintentional 11#/3.4% wt loss x 2 weeks Status Active Problem Recommendation Dietitian Recommendations/Changes continue regular diet as tolerated; ensure compact w/ meals if PO intake declines Lab / Micro Data Result Diagrams: 11/16/21 06:53 11/16/21 06:53 Labs: Laboratory Results - last 24 hr 11/16/21 06:53: WBC 16.9 H, RBC 4.86, Hgb 13.5, Hct 39.1 L, MCV 80.5, MCH 27.8, MCHC 34.5, RDW Std Deviation 36.0, RDW Coeff of Ifeoma 12.4, Plt Count 341, MPV 9.8, Immature Gran % (Auto) 2.200 H, Neut % (Auto) 86.1 H, Lymph % (Auto) 5.0 L, [place] % (Auto) 6.1, Eos % (Auto) 0.4, Baso % (Auto) 0.2, Absolute Neuts (auto) 14.6 H, Absolute Lymphs (auto) 0.84, Nucleated RBC % 0 11/16/21 06:53: Sodium 130 L, Potassium 3.5, Chloride 96 L, Carbon Dioxide 24.0, Anion Gap 10, BUN 19 H, Creatinine 0.68 L, Estim Creat Clear Calc 138.72, Est GFR (MDRD) Af Amer 154, Est GFR (MDRD) Non-Af 127, BUN/Creatinine Ratio 27.7 H, Glucose 73 L, Calcium 8.8, Total Bilirubin 0.80, AST 23, ALT 37, Alkaline Phosphatase 59, Total Protein 7.4, Albumin 2.5 L, Globulin 4.9 H, Albumin/Globulin Ratio 0.5 L Micro: Microbiology 11/08/21 17:55 Blood Culture (Wb) - Anticubital Left Blood Culture - Final No growth in 5 days. 11/08/21 19:53 Blood Culture (Wb) - Anticubital Right Blood Culture - Final No growth in 5 days. 11/08/21 17:55 Nasal Secretion SARS-CoV-2 Antigen (Rapid) - Final Physical Exam Const alert and no apparent distress Constitutional Narrative: Currently on nasal cannula with no conversational dyspnea General Appearance: cooperative Nutritional Appearance: morbidly obese HEENT normocephalic and head/scalp atraumatic Eyes PERRL, EOMs intact bilaterally and conjunctivae normal Neck supple General: trachea midline Chest inspection of chest normal Resp Auscultation: diminished lung sounds; Negative for rales, rhonchi or wheezes Cardio S1 normal heart sound and S2 normal heart sound Heart Sounds: Negative for gallop, murmur or rub GI normal to inspection, nondistended, normoactive bowel sounds Extremity no clubbing, cyanosis or edema Skin no rashes or lesions noted Neuro CN's II-XII intact bilaterally, moves all extremities and no focal motor deficits Psych Mood & Affect: flat affect Charges/Coding Visit Charges Inpatient E&M: 93991 Subs Hosp L2
== END 2021-11-16 15:40 | disposition home or self-care (01) | DRG 177 ==
LOC: ED 20:24 → PCU 22:09
PROVIDERS: Internal Medicine; Internal Medicine Critical Care Medicine; Admitting Provider Family Medicine; Emergency Provider Emergency Medicine; PCP Family Medicine; Visit Provider Internal Medicine
DX: U07.1 COVID-19 (principal); J96.01 Acute respiratory failure with hypoxia; J12.82 Pneumonia due to coronavirus disease 2019; E44.0 Moderate protein-calorie malnutrition; Z68.41 Body mass index [BMI] 40.0-44.9, adult; E87.1 Hypo-osmolality and hyponatremia; E66.01 Morbid (severe) obesity due to excess calories; E87.6 Hypokalemia; I10 Essential (primary) hypertension; M17.0 Bilateral primary osteoarthritis of knee; I45.10 Unspecified right bundle-branch block; Z79.899 Other long term (current) drug therapy
CPT/HCPCS: 36415; 71045; 71275; 80048; 80053; 80076; 82728; 83605; 83735; 84145; 84484; 85025; 85379; 86140; 87040; 87426; 87633; 87635; 93005; 94660; 97802; 97803; 99251; 99285; J7050; Q9967; U0005; A4216; G0463; J1940; U0003

== ENCOUNTER → 2021-11-08 | Outpatient (CLI) | payer MEDICARE, SELFPAY | END | disposition home or self-care (01) | PROVIDERS: PCP Family Medicine; Referring Provider Family Medicine; Visit Provider Family Medicine | DX: U07.1 COVID-19 (principal) | CPT/HCPCS: 87633; 87635; U0005; U0003 ==

== ENCOUNTER 2021-11-18 22:56 | Inpatient (IN) | payer MEDICARE, SELFPAY ==
[2021-11-18 22:57] VITALS: BP 178/98; PULSE 102; RESP 39; TEMP 36.9; O2SAT 98; BMI 42.7
[2021-11-18 23:02] VITALS: BP 178/98; PULSE 100; PULSE 99; RESP 33; RESP 39; TEMP 36.4; O2SAT 98
--- NOTE | 2021-11-18 23:10 | EKG12_ITS ---
Test Reason : CP Blood Pressure : / mmHG Vent. Rate : 100 BPM Atrial Rate : 100 BPM P-R Int : 152 ms QRS Dur : 158 ms QT Int : 394 ms P-R-T Axes : 038 -25 -02 degrees QTc Int : 508 ms Normal sinus rhythm Right bundle branch block Abnormal ECG When compared with ECG of 18-NOV-2021 23:09, MANUAL COMPARISON REQUIRED, DATA IS UNCONFIRMED Confirmed by FIOR RAGLAND, SHANTELLE ([id number]), health editor SIMONE GALVAN ([id number]) on 11/26/2021 7:54:37 AM Referred By: ROBI Confirmed By:DANIELA CHILDRESS MD
--- NOTE | 2021-11-18 23:17 | CT_ITS ---
EXAM: CT ANGIOGRAPHY CHEST WITHOUT AND WITH INTRAVENOUS CONTRAST : 1965 CLINICAL INDICATION: hypoxia TECHNIQUE: Helically acquired angiography images were obtained of the chest without and with intravenous contrast. This CT exam was performed using one or more of the following dose reduction techniques: automated exposure control, adjustment of the mA and/or kV according to patient size, and/or use of iterative reconstruction technique. This report was created using [employer] report generation technology. MIP reconstructed images were created and reviewed. CONTRAST: IV 100mL [id number] COMPARISON: 11/08/21 FINDINGS: PULMONARY ARTERIES: No evidence of pulmonary embolism, but small segmental pulmonary emboli are not excluded due to artifact caused by patient respiratory motion. Normal in caliber. AORTA: Unremarkable. Normal in caliber. No evidence of dissection. GREAT VESSELS OF AORTIC ARCH: Unremarkable. Normal in caliber. No evidence of dissection. LUNGS AND PLEURAL SPACES: Patchy multilobar pulmonary infiltrates, with peripheral groundglass opacities. Small right pleural effusion. No mass. No pneumothorax. HEART: Unremarkable. Heart size is normal. No pericardial effusion. No signs of right heart strain, ratio of right ventricle to left ventricle measures less than 1. MEDIASTINUM: Unremarkable. No mediastinal or hilar adenopathy. Esophagus is unremarkable. No hiatal hernia. THYROID: Unremarkable. No thyroid lesions. BONES/JOINTS: Unremarkable. No suspicious lytic or blastic abnormality. CT/CTA Chest W/WO Contrast IMPRESSION: 1. Patchy multilobar pulmonary infiltrates, with peripheral groundglass opacities. Findings are consistent with pneumonia, with typical features of COVID 19 infection. The appearance is significantly worsened compared with the November 08 exam. 2. No evidence of pulmonary embolism, but small segmental pulmonary emboli are not excluded due to artifact caused by patient respiratory motion. Individualized dose optimization techniques were used for this CT. at 0045 Reported and signed by: Kenneth Leos MD Electronically Signed: Kenneth Leos MD at 0:45 EST Tel , Service support ,
--- NOTE | 2021-11-18 23:17 | EKG12_ITS ---
Test Reason : CP Blood Pressure : / mmHG Vent. Rate : 098 BPM Atrial Rate : 098 BPM P-R Int : 154 ms QRS Dur : 158 ms QT Int : 382 ms P-R-T Axes : 043 -22 -05 degrees QTc Int : 487 ms Normal sinus rhythm Right bundle branch block Abnormal ECG Confirmed by SRIDHAR RAGLAND, JOSE MIGUEL ([id number]), manager editorial ROCK RYAN ([id number]) on 11/22/2021 10:31:11 AM Referred By: ROBI Confirmed By:JOSE MIGUEL WALLER MD
[2021-11-18 23:23] VITALS: PULSE 104; RESP 14; RESP 41; O2SAT 98
[2021-11-18 23:25] LABS: Absolute Lymphocyte Count 0.67 X10^3/uL (0.83-4.51); Absolute Neutrophil Count 21.6 X10^3/uL (2.0-7.7); Basophil# 0.07 X10^3/uL; Basophil% 0.3 % (0-1); Eosinophil# 0.03 X10^3/uL; Eosinophils% 0.1 % (0-5); Hematocrit 37.9 % (40-54); Hemoglobin 12.6 g/dL (13.0-16.5); Lymphocyte # 0.67 X10^3/ul (0.83-4.51); Lymphocyte % 2.7 % (19-41); Mean Corp Hgb Conc 33.2 g/dL (32-36); Mean Corpuscular Hgb 27.8 pg (27.0-32.0); Mean Corpuscular Volume 83.7 fL (80-94); Mean Platelet Vol. 8.8 fl (6.2-12.0); Monocyte# 1.68 X10^3/uL; Monocyte% 6.8 % (0-10); NRBC Flagged by Analyzer 0 % (0-5); Neutrophil # 21.56 X10^3/uL (2.7-7.7); Neutrophil % 87.1 % (47-70); POSITIVE DIFFERENTIAL YES; Platelet Count 412 K/mm3 (150-450); RBC Distribution Width CV 12.5 % (11.6-14.6); RBC Distribution Width SD 37.7 fl (35.1-43.9); Red Blood Count 4.53 M/mm3 (4.6-6.2); White Blood Count 24.8 K/mm3 (4.4-11.0)
[2021-11-18] MEDS: dexAMETHasone 10 MG/ML Vial IV (23:29)
[2021-11-18 23:31] VITALS: BP 153/80; PULSE 94; RESP 38; O2SAT 97
[2021-11-18 23:31] LABS: International Normalized Ratio 1.4; Prothrombin Time (Protime)PT. 16.1 SECONDS (11.7-14.9)
[2021-11-18 23:32] LABS: Partial Thromboplast Time 25.1 Seconds (24.1-36.2)
[2021-11-18 23:45] LABS: Differential Comment SCANNED; Differential Indicated SCAN CRITERIA MET
[2021-11-18 23:46] LABS: Anion Gap 9 (5-15); BUN 11 mg/dL (7-18); BUN/Creat Ratio 12.9 RATIO (10-20); Calcium,Total 8.4 mg/dL (8.5-10.1); Chloride 96 mmol/L (98-107); Creatinine, Serum 0.85 mg/dL (0.70-1.30); EST Glomerular Filtration Rate 99 mL/min (>60); Est Glom Filt Rate - Afr Amer 120 mL/min (>60); Estimated Creatinine Clearance 110.97 ml/min; Glucose 161 mg/dL (74-106); Magnesium 1.9 mg/dL (1.6-2.6); Potassium 4.2 mmol/L (3.5-5.1); Sodium Level 130 mmol/L (136-145); Troponin-I HS 20 pg/mL (3.0-78.0)
[2021-11-18 23:50] LABS: Procalcitonin 0.16 ng/mL (0.00-0.09)
[2021-11-19] VITALS (18 sets, daily range): BP systolic 114–155; BP diastolic 59–96; PULSE 68–96; RESP 18–37; TEMP 35.9–36.7; O2SAT 93–99; BMI 42.1
[2021-11-19 00:08] LABS: BNP,B-Type NATRIURETIC PEPTIDE 41.4 pg/mL (0-100)
--- NOTE | 2021-11-19 01:08 | HP.PCM.HOS_ITS ---
HPI - General General Date of Admission: 11/19/21 HPI Narrative PIERRE CUEVAS, is a 56 M with a significant history of hypertension who returned to the emergency department with progressively worsening shortness of breath. Associated with his symptom is chest pain which has since resolved. He reports a productive cough with yellow sputum. Patient was admitted to the hospital on 11/08/2021. Patient was discharged on 11/16/2021. Patient was seen by residential child care counselor and infectious disease on that presentation and received Decadron and baricitinib. He was discharged home on 1 day of Decadron, Mucinex and Eliquis. He was discharged home on nasal cannula oxygen. Reportedly on this new day of presentation his oxygen requirement had increased and when paramedics picked him up his oxygen saturation on 7 to 8 L was 86%. On presentation to ED patient was tachypneic and was using accessory muscles of respiration. He was transitioned from nonrebreather mask to BiPAP. [facility] Medical History Arthritis Hay fever HTN (hypertension) Non-smoker Home Medications apixaban [Eliquis] 2.5 mg PO BID #30 tab 11/16/21 [Rx Last Taken Unknown] dexamethasone [Decadron] 6 mg PO DAILY #1 tab 11/16/21 [Rx Last Taken Unknown] guaifenesin [Mucus Relief ER] 1,200 mg PO BID #14 tab 11/16/21 [Rx Last Taken U nknown] lisinopril-hydrochlorothiazide 1 tab PO BID #0 tab 11/16/21 [Rx Last Taken Unknown] pantoprazole 40 mg PO DAILY #30 tab 11/16/21 [Rx Last Taken Unknown] Allergy/AdvReac Type Severity Reaction Status Date / Time grass pollen Allergy Unknown Verified 11/09/21 00:19 tree and shrub pollen Allergy Unknown Verified 11/09/21 00:19 Family History Other Cancer Surgical History no surgical history no surgical history Social History Smoking Status: Never smoker alcohol intake: never ROS ROS Narrative Constitutional: Denies fever, chills, fatigue, anorexia and change in weight Eyes: Denies blurry vision, change in eye color, change in vision, discharge from eye(s), double vision, erythema, eye pain, loss of vision or other HEENT: Denies abnormal hearing, dysphagia, ear pain, epistaxis, headache(s), hearing loss, nasal congestion, nasal discharge, post nasal drip, sinus pressure, sore throat or other Cardiovascular: Reports chest pain that has now resolved. Denies palpitations. Respiratory/Chest: Reports cough. Reports phlegm production. Reports shortness of breath. Gastrointestinal: Denies abdominal pain, coffee ground emesis, constipation, diarrhea, dyspepsia, hematemesis, hematochezia, loose stools, melena, nausea, vomiting or other Genitourinary: Denies burning urination, difficulty urinating, dysuria, hematuria, nocturia, urinary frequency, urinary hesitancy, urinary incontinence, urinary urgency or other Musculoskeletal: Denies arthralgias, back pain, joint pain, joint stiffness, joint swelling, myalgias, neck pain or other Neurologic: Denies abnormal gait, abnormal speech, confusion, disequilibrium, dizziness, focal weakness, headache(s), numbness, paresthesias, seizure-like activity, seizures, syncope, tingling, tremor(s) or other Psychiatric: Denies anxiety, depression, homicidal ideation, suicidal ideation or other Endocrinology: Denies change in body appearance, cold intolerance, excessive sweating, heat intolerance, polydipsia, polyuria or other Hematologic/Lymphatic: Denies anemia, easy bleeding, easy bruising, lym phadenopathy or other Integumentary: Denies rashes Allergic/Immunologic: Denies rhinitis, hives, eczema, asthma or other Vital Signs Vital Signs Vital Signs: 11/18/21 22:57 11/18/21 23:02 11/18/21 23:23 Temperature 98.5 F 97.5 F L Temperature Source Oral Oral Pulse Rate 102 H 99 104 H Respiratory Rate 39 H 39 H 41 H Respiratory Effort Short of Breath Labored Accessory Muscle Use Head [place] Respiratory Depth Shallow Respiratory Pattern Tachypnea Hyperpnea Blood Pressure 178/98 H 178/98 H Blood Pressure Mean 124 124 Pulse Ox 98 98 98 Oxygen Delivery Method Non-Rebreather Non-Rebreather Oxygen Flow Rate (L/min) 15 15 Fraction of Inspired Oxygen (FIO2) 50 11/18/21 23:31 11/19/21 00:00 Temperature 98.1 F Temperature Source Temporal Pulse Rate 94 95 Respiratory Rate 38 H 37 H Respiratory Effort Respiratory Depth Respiratory Pattern Blood Pressure 153/80 H 141/91 H Blood Pressure Mean 104 107 Pulse Ox 97 97 Oxygen Delivery Method Bi-pap Bi-pap Oxygen Flow Rate (L/min) Fraction of Inspired Oxygen (FIO2) 50 50 Weight Weight: 147 kg Body Mass Index (BMI) 42.7 Physical Exam Narrative Physical exam: General: In acute respiratory distress on BiPAP. Head: Normocephalic, atraumatic, no tenderness Eyes: PERRLA, EOMI ENT, no trauma, moist mucous membranes, no rhinorrhea Neck: Nontender, full range of motion, no spinal tenderness, deformities, step- off CVS: Regular rate and rhythm. S1-S2 present. No murmur, gallop or rub. Respiratory : On BiPAP; tachypnea; Rales. Abdomen: Soft, nontender, nondistended, normal bowel sounds, no masses : Deferred Back: Nontender, no CVA tenderness, no midline spinal tenderness, deformities, step-offs Extremities: Nontender full range of motion, no trauma Skin: Normal color, no trauma, abrasions Neuro: Alert, oriented, cranial nerves II through XII grossly intact. Psychiatry: Normal mood. Normal affect. Not depressed. Not anxious. Results Lab / Micro Data Result Diagrams: 11/18/21 23:10 11/18/21 23:10 Labs: Laboratory Results - last 24 hr 11/18/21 23:10: PT 16.1 H, INR 1.4, APTT 25.1 11/18/21 23:10: Sodium 130 L, Potassium 4.2, Chloride 96 L, Carbon Dioxide 25.0, Anion Gap 9, BUN 11, Creatinine 0.85, Estim Creat Clear Calc 110.97, Est GFR (MDRD) Af Amer 120, Est GFR (MDRD) Non-Af 99, BUN/Creatinine Ratio 12.9, Glucose 161 H, Calcium 8.4 L, Magnesium 1.9, Troponin I High Sens 20 11/18/21 23:10: B-Natriuretic Peptide 41.4 11/18/21 23:10: Procalcitonin 0.16 H 11/18/21 23:10: WBC 24.8 H, RBC 4.53 L, Hgb 12.6 L, Hct 37.9 L, MCV 83.7, MCH 27.8, MCHC 33.2, RDW Std Deviation 37.7, RDW Coeff of Ifeoma 12.5, Plt Count 412, MPV 8.8, Immature Gran % (Auto) 3.000 H, Neut % (Auto) 87.1 H, Lymph % (Auto) 2.7 L, [place] % (Auto) 6.8, Eos % (Auto) 0.1, Baso % (Auto) 0.3, Absolute Neuts (auto) 21.6 H, Absolute Lymphs (auto) 0.67 L, Nucleated RBC % 0, Differential Comment SCANNED, Diff Path Review March Radiology Impression Chest CTA 11/18/21 23:17 IMPRESSION: 1. Patchy multilobar pulmonary infiltrates, with peripheral groundglass opacities. Findings are consistent with pneumonia, with typical features of COVID 19 infection. The appearance is significantly worsened compared with the November 08 exam. 2. No evidence of pulmonary embolism, but small segmental pulmonary emboli are not excluded due to artifact caused by patient respiratory motion. Individualized dose optimization techniques were used for this CT. at 0045 Reported and signed by: Kenneth Leos MD Electronically Signed: Kenneth Leos MD at 0:45 EST Tel , Service support , Assessment & Plan Assessment/Plan (1) Pneumonia due to 2019 novel coronavirus: (2) COVID-19 long hauler: (3) Respiratory failure: QUALIFIERS: Chronicity: acute Respiratory failure complication: hypoxia Qualified Code(s): J96.01 - Acute respiratory failure with hypoxia PLAN: Acute hypoxemic respiratory failure secondary to SARS- COV 2/COVID- 19 long-hauler Covid symptoms onset: Review of H&P on 11/08/2021 showed that patient had a Cold-like symptoms 2 to 3 weeks before that presentation. Reportedly patient increased his oxygen flow at home. Reportedly oxygen saturation on 7 to 8 L at home was 86%. Was on nonrebreather mask on presenta tion at the ED. BiPAP placed at the ED. BiPAP continued. Review of hospital records shows that Covid test on 11/08/2021 was positive Chest CTA independently interpreted showed bilateral infiltrates. No PE or dissection noted. Also previous chest CT was independently interpreted. Radiologist is interpreting current chest CTA as well as than previous. Procalcitonin was not impressive. Procalcitonin was 0.16. Her procalcitonin on 10/25/2021 was 0.05. not significantly changed from previous. White count on presentation was 24.8. His white count on 11/16/2021 was 16.9 and 9 11/15/2021 was 20.6. Patient has completed a course of steroids. At least on presentation he just had 1 more dose of steroids to complete a 10-day course and was accordingly given prescription for steroids. Work-up, cannot rule in superimposed bacterial infection. However with such an abnormal CT abdomen will empirically start ceftriaxone and azithromycin. We will get CRP. Was on baricitinib on previous hospital admission. Continue BiPAP started emergency department. Will consult infectious disease. Continue low-dose Eliquis. Mucinex continued. Proair inhaler continued. PRN Tylenol ordered Trend CBC and CMP. Check strep pneumonia antigen; Legionella urine antigen; MRSA nasal screen; sputum culture; RSV and influenza A and B. Per policy will discontinue COVID-19 precautions Hypertension Blood pressure is not within goal Amlodipine and hydrochlorothiazide continued. As needed hydralazine ordered. Trend blood pressure and adjust blood pressure medications. Hyponatremia Review of previous labs from 11/08/2021 2 11/16/2021 showed sodium ranging from 129-134. 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 Trend CMP. DVT prophylaxis: Eliquis continued Charges/Coding Visit Charges Inpatient E&M: 57257 Init Hosp L3
--- NOTE | 2021-11-19 01:18 | EDS_ITS ---
HPI History of Present Illness Chief Complaint: Shortness of Breath Narrative Narrative: Patient is a 56-year-old male who was admitted to the hospital on November 08 secondary to Covid pneumonia. He was in the hospital until November 16 and was discharged home. He was discharged on oxygen and is to wear 2 L. Patient states that he felt okay on the fourth and fifth but beginning on the afternoon of November 18 had increased shortness of breath. He states he increase his oxygen to 7 to 8 L at home but still short of breath and secondary to this called EMS. EMS states when they arrived patient was on the 7 to 8 L as he states and his pulse ox was in the mid 80s. Therefore with the patient's worsening symptoms and persistent hyper oxygen he was brought back to the hospital for reevaluation [facility] Medical History Arthritis Hay fever HTN (hypertension) Non-smoker Home Medications apixaban [Eliquis] 2.5 mg PO BID #30 tab 11/16/21 [Rx Last Taken Unknown] guaifenesin [Mucus Relief ER] 1,200 mg PO BID #14 tab 11/16/21 [Rx Last Taken Unknown] lisinopril-hydrochlorothiazide 1 tab PO BID #0 tab 11/16/21 [Rx Last Taken Unknown] pantoprazole 40 mg PO DAILY #30 tab 11/16/21 [Rx Last Taken Unknown] Allergy/AdvReac Type Severity Reaction Status Date / Time grass pollen Allergy Unknown Verified 11/09/21 00:19 tree and shrub pollen Allergy Unknown Verified 11/09/21 00:19 Family History Other Cancer Social History Smoking Status: Never smoker alcohol intake: never ROS ROS ED Constitutional Constitutional ED: Denies chills or fever(s) ENT ENT ED: Denies sore throat Cardiovascular Cardiovascular: Denies chest pain Respiratory/Chest Respiratory/Chest: Reports cough and dyspnea Gastrointestinal Gastrointestinal: Denies abdominal pain, diarrhea, nausea or vomiting Genitourinary Genitourinary ED: Denies dysuria Musculoskeletal Musculoskeletal: Reports myalgias Integumentary Denies rash Neurologic Neurologic: Denies headache(s) Hematologic/Lymphatic Hematologic/Lymphatic: Reports easy bleeding and easy bruising EXAM Physical Exam Const Vital Signs: 11/18/21 22:57 11/18/21 23:02 11/18/21 23:23 Temperature 98.5 F 97.5 F L Temperature Source Oral Oral Pulse Rate 102 H 99 104 H Respiratory Rate 39 H 39 H 41 H Respiratory Effort Short of Breath Labored Accessory Muscle Use Head [place] Respiratory Depth Shallow Respiratory Pattern Tachypnea Hyperpnea Blood Pressure 178/98 H 178/98 H Blood Pressure Mean 124 124 Pulse Ox 98 98 98 Oxygen Delivery Method Non-Rebreather Non-Rebreather Oxygen Flow Rate (L/min) 15 15 Fraction of Inspired Oxygen (FIO2) 50 11/18/21 23:31 11/19/21 00:00 Temperature 98.1 F Temperature Source Temporal Pulse Rate 94 95 Respiratory Rate 38 H 37 H Respiratory Effort Respiratory Depth Respiratory Pattern Blood Pressure 153/80 H 141/91 H Blood Pressure Mean 104 107 Pulse Ox 97 97 Oxygen Delivery Method Bi-pap Bi-pap Oxygen Flow Rate (L/min) Fraction of Inspired Oxygen (FIO2) 50 50 Positive well nourished, well developed and obese General Appearance ED: well developed Nutritional Appearance: obese HEENT Reports dry mucous membranes HEENT Narrative: No tongue or lip swelling no oral lesions no airway edema or compromise Mouth ED: Yes dry mucous membranes Mouth: dry mucous membranes Eyes PERRL and EOMs intact bilaterally Neck supple and no JVD Resp Resp Narrative: Patient is tachypneic with accessory muscle use and mild retractions. Breath sounds are diminished throughout with diffuse expiratory wheeze and rhonchi in the bilateral bases Cardio regular rhythm Rate: tachycardic and other Other Details: Tachycardic rate with regular rhythm. Radial pulses are plus 2 out of 4 bilaterally are equal and symmetric GI normal to inspection, nondistended, normoactive bowel sounds, non-tender, non- distended and no masses Auscultation: normoactive bowel sounds Palpation: soft Extremity Extremity Narrative: +2-3 pitting edema to the bilateral lower extremities that is equal and symmetric. Negative Homans' sign bilaterally Neuro oriented x3 and CN's II-XII intact bilaterally Sensorium / Orientation: alert Psych mental status grossly normal Skin no rashes or lesions noted MDM MDM MDM Narrative Medical decision making narrative: Patient presented to the ER in acute respiratory distress with tachypnea accessory muscle use and mild retractions. EMS confirmed that his pulse ox was in the mid 80s despite having increase his oxygen at home. Secondary to this he was placed on a nonrebreather and brought to the hospital. Patient's oxygen level on the nonrebreather was in the high 90s but his work of breathing persisted. Therefore he was changed over to BiPAP. This did help resolve his work of breathing and his pulse ox remained stable at 92 to 94%. Patient was placed on Eliquis once discharged from the hospital but there is still concern he has developed a pulmonary embolus with his recent immobilization as a cause of his symptoms. Therefore a CTA was obtained. CTA revealed groundglass opacities consistent with multifocal pneumonia which was slightly worse than his November 08 scan. Therefore at this time as patient is showing persistent hypoxia needing BiPAP once again it is not safe for discharge and he will be admitted to the hospital for further care Patient does qualify for respiratory failure as his oxygen supplementation had to be changed from nasal cannula to BiPAP Lab Data Attestation: I reviewed the patient's lab results. Labs: Laboratory Results - last 24 hr 11/18/21 11/18/21 11/18/21 23:10 23:10 23:10 WBC RBC Hgb Hct MCV MCH MCHC RDW Std Deviation RDW Coeff of Ifeoma Plt Count MPV Immature Gran % (Auto) Neut % (Auto) Lymph % (Auto) [place] % (Auto) Eos % (Auto) Baso % (Auto) Absolute Neuts (auto) Absolute Lymphs (auto) Nucleated RBC % Differential Comment Diff Path Review PT 16.1 H INR 1.4 APTT 25.1 Sodium 130 L Potassium 4.2 Chloride 96 L Carbon Dioxide 25.0 Anion Gap 9 BUN 11 Creatinine 0.85 Estim Creat Clear Calc 110.97 Est GFR (MDRD) Af Amer 120 Est GFR (MDRD) Non-Af 99 BUN/Creatinine Ratio 12.9 Glucose 161 H Calcium 8.4 L Magnesium 1.9 Troponin I High Sens 20 C-React Prot Ext Range B-Natriuretic Peptide 41.4 Procalcitonin 11/18/21 11/18/21 11/18/21 23:10 23:10 23:10 WBC 24.8 H RBC 4.53 L Hgb 12.6 L Hct 37.9 L MCV 83.7 MCH 27.8 MCHC 33.2 RDW Std Deviation 37.7 RDW Coeff of Ifeoma 12.5 Plt Count 412 MPV 8.8 Immature Gran % (Auto) 3.000 H Neut % (Auto) 87.1 H Lymph % (Auto) 2.7 L [place] % (Auto) 6.8 Eos % (Auto) 0.1 Baso % (Auto) 0.3 Absolute Neuts (auto) 21.6 H Absolute Lymphs (auto) 0.67 L Nucleated RBC % 0 Differential Comment SCANNED Diff Path Review May foll PT INR APTT Sodium Potassium Chloride Carbon Dioxide Anion Gap BUN Creatinine Estim Creat Clear Calc Est GFR (MDRD) Af Amer Est GFR (MDRD) Non-Af BUN/Creatinine Ratio Glucose Calcium Magnesium Troponin I High Sens C-React Prot Ext Range 146.00 H B-Natriuretic Peptide Procalcitonin 0.16 H Radiography Diagnostic Testing: Clinical Impression(s) from Imaging Studies Chest CTA 11/18/21 23:17 IMPRESSION: 1. Patchy multilobar pulmonary infiltrates, with peripheral groundglass opacities. Findings are consistent with pneumonia, with typical features of COVID 19 infection. The appearance is significantly worsened compared with the November 08 exam. 2. No evidence of pulmonary embolism, but small segmental pulmonary emboli are not excluded due to artifact caused by patient respiratory motion. Individualized dose optimization techniques were used for this CT. at 0045 Reported and signed by: Kenneth Leos MD Electronically Signed: Kenneth Leos MD at 0:45 EST Tel , Service support , Critical Care Time Critical Care Time: Yes Critical care time (excluding procedures): - (Please critical care time of 31 minutes) Discharge Plan Dx/Rx/DC Orders Clinical Impression: Respiratory failure, Pneumonia due to 2019 novel coronavirus Disposition Disposition: Acute Care Hospital [facility] Discharge Date/Time: 11/19/21 02:12
--- NOTE | 2021-11-19 01:51 | PCS.PANDOC ---
PANDEMIC DOCUMENTATION INITIATED: Date: 11/19/20 Time: 0000
[2021-11-19] MEDS: Ceftriaxone 1 GM/50 ML BAG IV ×2 (02:56→22:13)
[2021-11-19 04:43] LABS: M R Staph aureus DNA By PCR Negative (Negative); Probe Check PASS; Specimen Processing Control PASS
[2021-11-19 06:48] LABS: Absolute Lymphocyte Count 0.31 X10^3/uL (0.83-4.51); Absolute Neutrophil Count 23.5 X10^3/uL (2.0-7.7); Basophil# 0.04 X10^3/uL; Basophil% 0.2 % (0-1); Hematocrit 36.8 % (40-54); Hemoglobin 12.2 g/dL (13.0-16.5); Lymphocyte # 0.31 X10^3/ul (0.83-4.51); Lymphocyte % 1.2 % (19-41); Mean Corp Hgb Conc 33.2 g/dL (32-36); Mean Corpuscular Hgb 27.8 pg (27.0-32.0); Mean Corpuscular Volume 83.8 fL (80-94); Mean Platelet Vol. 8.9 fl (6.2-12.0); Monocyte# 1.18 X10^3/uL; Monocyte% 4.6 % (0-10); NRBC Flagged by Analyzer 0 % (0-5); Neutrophil # 23.49 X10^3/uL (2.7-7.7); Neutrophil % 92.2 % (47-70); POSITIVE DIFFERENTIAL YES; Platelet Count 380 K/mm3 (150-450); RBC Distribution Width CV 12.8 % (11.6-14.6); RBC Distribution Width SD 38.7 fl (35.1-43.9); Red Blood Count 4.39 M/mm3 (4.6-6.2); White Blood Count 25.5 K/mm3 (4.4-11.0)
[2021-11-19 06:54] LABS: Differential Indicated SCAN CRITERIA MET
[2021-11-19 07:24] LABS: ALB/GLOB Ratio 0.4 RATIO (0.9-2.4); AST(SGOT) 18 U/L (15-37); Alanine Aminotransfer ALT/SGPT 38 U/L (16-61); Albumin, Serum 2.1 g/dL (3.2-5.0); Alkaline Phosphatase 71 U/L (45-117); Anion Gap 7 (5-15); BUN 9 mg/dL (7-18); BUN/Creat Ratio 13.8 RATIO (10-20); Calcium,Total 8.4 mg/dL (8.5-10.1); Chloride 101 mmol/L (98-107); Creatinine, Serum 0.65 mg/dL (0.70-1.30); EST Glomerular Filtration Rate 135 mL/min (>60); Est Glom Filt Rate - Afr Amer 164 mL/min (>60); Estimated Creatinine Clearance 145.12 ml/min; Globulin 4.8 g/dL (2.2-4.2); Glucose 159 mg/dL (74-106); Potassium 3.5 mmol/L (3.5-5.1); Protein, Total 6.9 g/dL (6.4-8.2); Sodium Level 135 mmol/L (136-145)
[2021-11-19] MEDS: Pantoprazole Sodium 40 MG Tablet PO (08:40)
[2021-11-19] MEDS: guaiFENesin 1,200 MG Tablet 1200 MG PO ×2 (08:40→22:13)
[2021-11-19] MEDS: Lisinopril 10 MG Tablet PO ×2 (08:40→22:15)
[2021-11-19] MEDS: APIXABAN 2.5 MG TABLET PO ×2 (08:40→22:12)
[2021-11-19] MEDS: hydroCHLOROthiazide 12.5mg 12.5 MG PO ×2 (08:40→22:13)
[2021-11-19 10:29] LABS: Pathologist Review Reviewed
--- NOTE | 2021-11-19 14:41 | CASEMGMT ---
Readmission chart review: 11/08-11/16/21 Resp failure, pneumonia, COVID 11/18/21-current Acute hypoxemic resp failure 2nd COVID pna Pt was admitted with COVID, resp failure from Dr. Vigil's office for hypoxia. Pt's rapid COVID was negative but PCR was positive. Pt was given decadron and baricitinib while admitted. Pt was sent home with 1 more day of decadron, as well as mucinex and Eliquis. Pt was also was sent home with home oxygen thru [employer] 3L at rest and 4L w/ exertion. Pt returned to [facility] ED on 11/18/21 for increased SOB. Pt is currently on 3L nc at this time and will have a green sheet for increased home oxygen need. CM to follow. Scooter [facility]I CM
[2021-11-19] MEDS: 0.9% Saline Lock 10 ML Syringe IV (22:16)
[2021-11-20 02:25] VITALS: BP 112/71; PULSE 85; RESP 18; TEMP 36.7; O2SAT 93
[2021-11-20 03:01] VITALS: PULSE 78
[2021-11-20 06:21] VITALS: BP 115/67; PULSE 70; RESP 18; TEMP 36.7; O2SAT 96
[2021-11-20 06:47] LABS: Absolute Lymphocyte Count 0.56 X10^3/uL (0.83-4.51); Absolute Neutrophil Count 16.2 X10^3/uL (2.0-7.7); Basophil# 0.06 X10^3/uL; Basophil% 0.3 % (0-1); Eosinophil# 0.28 X10^3/uL; Eosinophils% 1.5 % (0-5); Hematocrit 36.1 % (40-54); Hemoglobin 11.7 g/dL (13.0-16.5); Lymphocyte # 0.56 X10^3/ul (0.83-4.51); Lymphocyte % 2.9 % (19-41); Mean Corp Hgb Conc 32.4 g/dL (32-36); Mean Corpuscular Volume 86.4 fL (80-94); Mean Platelet Vol. 9.6 fl (6.2-12.0); Monocyte# 1.45 X10^3/uL; Monocyte% 7.6 % (0-10); NRBC Flagged by Analyzer 0 % (0-5); Neutrophil # 16.23 X10^3/uL (2.7-7.7); Neutrophil % 84.9 % (47-70); POSITIVE COUNT YES; POSITIVE DIFFERENTIAL YES; Platelet Count 344 K/mm3 (150-450); RBC Distribution Width SD 40.4 fl (35.1-43.9); Red Blood Count 4.18 M/mm3 (4.6-6.2); White Blood Count 19.1 K/mm3 (4.4-11.0)
[2021-11-20 07:00] VITALS: PULSE 70
[2021-11-20 07:05] LABS: Differential Indicated SCAN CRITERIA MET
[2021-11-20 07:22] LABS: Anion Gap 7 (5-15); BUN 14 mg/dL (7-18); BUN/Creat Ratio 20.7 RATIO (10-20); Calcium,Total 8.5 mg/dL (8.5-10.1); Chloride 99 mmol/L (98-107); Creatinine, Serum 0.68 mg/dL (0.70-1.30); EST Glomerular Filtration Rate 129 mL/min (>60); Est Glom Filt Rate - Afr Amer 156 mL/min (>60); Estimated Creatinine Clearance 138.72 ml/min; Glucose 105 mg/dL (74-106); Potassium 3.7 mmol/L (3.5-5.1); Sodium Level 134 mmol/L (136-145)
[2021-11-20 07:40] LABS: Differential Comment S
[2021-11-20 09:15] VITALS: BP 112/70; PULSE 79; RESP 18; TEMP 36.6; O2SAT 95
[2021-11-20] MEDS: hydroCHLOROthiazide 12.5mg 12.5 MG PO (09:17)
[2021-11-20] MEDS: Pantoprazole Sodium 40 MG Tablet PO (09:17)
[2021-11-20] MEDS: guaiFENesin 1,200 MG Tablet 1200 MG PO (09:17)
[2021-11-20] MEDS: Lisinopril 10 MG Tablet PO (09:17)
[2021-11-20] MEDS: APIXABAN 2.5 MG TABLET PO (09:18)
[2021-11-20 09:21] VITALS: O2SAT 85; O2SAT 90; O2SAT 92; O2SAT 95
--- NOTE | 2021-11-20 09:45 | PCM.DC ---
Discharge Instructions Diet Discharge Diet: No restrictions Activity Discharge Activity: Return to Normal Activity Dressing / Incision Call your doctor if you observe: Fever of 101 or Higher, Shortness of breath, Dizziness, Fainting spells, Swelling in the ankles, Chest pain and Increased palpitations (irregular heartbeat) Follow Up Care Test Results: Test results from this visit will be discussed in further detail at your follow-up appointment, if applicable. Discharge Plan Admission Admit Date/Time: 11/19/21 00:57 Attending Provider: Daniel Gilliland Primary Care Provider: Brigido Vigil Discharge Orders/Prescriptions Prescriptions: New azithromycin 500 mg tablet 500 mg PO DAILY 1 Days Qty: 1 RF: 0 cefdinir 300 mg capsule 300 mg PO BID 5 Days Qty: 10 RF: 0 Continued pantoprazole 40 mg Tablet,Delayed Release (Dr/Ec) 40 mg PO DAILY Qty: 30 RF: 0 Mucus Relief ER 1,200 mg Tablet Extended Release 12hr 1,200 mg PO BID Qty: 14 RF: 0 lisinopril-hydrochlorothiazide 10-12.5 mg tablet 1 tab PO BID Qty: 0 RF: 0 Eliquis 2.5 mg tablet 2.5 mg PO BID Qty: 30 RF: 0 Referrals / Follow Up: Brigido Vigil MD [Primary Care Provider] - Within 1 Week Disposition Disposition (needs filled in before D/C Order can be placed): Home, Self Care
--- NOTE | 2021-11-20 09:48 | DS.PCM_ITS ---
Providers Date of Admission: 11/19/21 Primary Care Physician: Dr. Brigido Vigil MD Reason For Visit: ACUTE HYPOXEMIC RESPIRATORY FAILURE 2NDARY TO COVI Diagnosis Discharge Diagnosis (1) Pneumonia due to 2019 novel coronavirus: Status: Acute Code(s): U07.1 - COVID-19; J12.82 - Pneumonia due to coronavirus disease 2019 (2) COVID-19 long hauler: Status: Acute Code(s): U09.9 - Post COVID-19 condition, unspecified (3) Respiratory failure: Status: Acute Code(s): J96.90 - Respiratory failure, unspecified, unspecified whether with hypoxia or hypercapnia Qualifiers: Chronicity: acute Respiratory failure complication: hypoxia Qualified Code(s): J96.01 - Acute respiratory failure with hypoxia Medications at Discharge Home Medications Eliquis 2.5 mg PO BID #30 tab 11/16/21 Mucus Relief ER 1,200 mg PO BID #14 tab 11/16/21 lisinopril-hydrochlorothiazide 1 tab PO BID #0 tab 11/16/21 pantoprazole 40 mg PO DAILY #30 tab 11/16/21 azithromycin 500 mg PO DAILY 1 Days #1 tab 11/20/21 cefdinir 300 mg PO BID 5 Days #10 cap 11/20/21 Hospital Course Operations None Procedures None Summary of Care Provided Minutes Spent on Discharge: 35 Hospital Course: Per HPI: PIERRE CUEVAS, is a 56 M with a significant history of hypertension who returned to the emergency department with progressively worsening shortness of breath. Associated with his symptom is chest pain which has since resolved. He reports a productive cough with yellow sputum. Patient was admitted to the hospital on 11/08/2021. Patient was discharged on 11/16/2021. Patient was seen by timber faller and infectious disease on that presentation and received Decadron and baricitinib. He was discharged home on 1 day of Decadron, Mucinex and Eliquis. He was discharged home on nasal cannula oxygen. Reportedly on this new day of presentation his oxygen requirement had increased and when paramedics picked him up his oxygen saturation on 7 to 8 L wa s 86%. On presentation to ED patient was tachypneic and was using accessory muscles of respiration. He was transitioned from nonrebreather mask to BiPAP. Hospital Course: 1. Acute hypoxic respiratory failure secondary to bacterial pneumonia in the setting of recent COVID-19?56-year-old male was recently discharged with COVID- 19, he went home and around 3 to 4 L nasal cannula and presented back with worsening hypoxia as well as an elevated white count. He is no longer on any steroids so this was likely response to bacterial infection. He was started on Rocephin and azithromycin and had significant improvement of his oxygenation. He is feeling much better today, his white white count is improving and he is not requiring more oxygen than he was sent home on on his previous discharge. Afebrile. Discussed with him the possibility of discharge today and he expressed understanding of the risk benefits of going home would like to go home today. We will continue with 1 more day of azithromycin and 5 days of Omnicef. Recommend that he follow-up with his PCP in 3 to 5 days. 2. Hypertension, GERD or chronic medical conditions which complicate his care. His home medications were continued where appropriate. Of note he is also on Eliquis temporarily for an elevated D-dimer. Repeat CTA of his chest on this admission was also negative for PE but will continue telemetry. Physical Exam Const alert, oriented x3 and no apparent distress General Appearance: cooperative HEENT normocephalic and moist oral mucous membranes Eyes PERRL, EOMs intact bilaterally and conjunctivae normal Neck supple and no JVD Resp normal respiratory effort, no retractions, no use of accessory muscles and clear to auscultation bilaterally Auscultation: Negative for crackles, rales, rhonchi or wheezes Cardio regular rate, regular rhythm, S1 normal heart sound, S2 normal heart sound and no murmurs GI soft to palpation, non-tender and non-distended; Negative for hepatosplenomegaly Extremity no clubbing, cyanosis or edema Skin no rashes or lesions noted Neuro no focal motor deficits and no sensory deficits noted Psych affect normal Appearance: appropriate Weight / BMI Weight Weight: 319 lb 7.197 oz Body Mass Index (BMI) 42.1 ABG / Lab / Microbiology Data Result Diagrams: 11/20/21 06:06 11/20/21 06:06 Laboratory: Laboratory Results - last 24 hr 11/18/21 23:10: Diff Path Review Reviewed 11/20/21 06:06: WBC 19.1 H, RBC 4.18 L, Hgb 11.7 L, Hct 36.1 L, MCV 86.4, MCH 28.0, MCHC 32.4, RDW Std Deviation 40.4, RDW Coeff of Ifeoma 13.0, Plt Count 344, MPV 9.6, Immature Gran % (Auto) 2.800 H, Neut % (Auto) 84.9 H, Lymph % (Auto) 2.9 L, [place] % (Auto) 7.6, Eos % (Auto) 1.5, Baso % (Auto) 0.3, Absolute Neuts (auto) 16.2 H, Absolute Lymphs (auto) 0.56 L, Nucleated RBC % 0, Differential Comment S 11/20/21 06:06: Sodium 134 L, Potassium 3.7, Chloride 99, Carbon Dioxide 28.0, Anion Gap 7, BUN 14, Creatinine 0.68 L, Estim Creat Clear Calc 138.72, Est GFR (MDRD) Af Amer 156, Est GFR (MDRD) Non-Af 129, BUN/Creatinine Ratio 20.7 H, Glucose 105, Calcium 8.5 Microbiology: Microbiology 11/19/21 01:20 Urine, Random Legionella Antigen - Final 11/19/21 01:20 Urine, Random Streptococcus pneumoniae Antigen (M - Final D/C Instructions Discharge Diet: No restrictions Call your doctor if you observe: Fever of 101 or Higher, Shortness of breath, Dizziness, Fainting spells, Swelling in the ankles, Chest pain and Increased palpitations (irregular heartbeat) Meaningful Use Info Meaningful Use Diagnoses (Choose all that apply): None applicable Discharge Plan Admission Admit Date/Time: 11/19/21 00:57 Attending Provider: Daniel Gilliland Primary Care Provider: Brigido Vigil Discharge Orders/Prescriptions Prescriptions: New azithromycin 500 mg tablet 500 mg PO DAILY 1 Days Qty: 1 RF: 0 cefdinir 300 mg capsule 300 mg PO BID 5 Days Qty: 10 RF: 0 Continued pantoprazole 40 mg Tablet,Delayed Release (Dr/Ec) 40 mg PO DAILY Qty: 30 RF: 0 Mucus Relief ER 1,200 mg Tablet Extended Release 12hr 1,200 mg PO BID Qty: 14 RF: 0 lisinopril-hydrochlorothiazide 10-12.5 mg tablet 1 tab PO BID Qty: 0 RF: 0 Eliquis 2.5 mg tablet 2.5 mg PO BID Qty: 30 RF: 0 Referrals / Follow Up: Brigido Vigil MD [Primary Care Provider] - Within 1 Week Disposition Disposition (needs filled in before D/C Order can be placed): Home, Self Care Charges/Coding Visit Charges Inpatient E&M: 25703 Disch Hosp
== END 2021-11-20 11:23 | disposition home or self-care (01) | DRG 189 ==
LOC: ED 11-19 01:19 → PCU 11-19 01:34
PROVIDERS: Admitting Provider Hospitalist; Emergency Provider Emergency Medicine; PCP Family Medicine; Visit Provider Family Medicine
DX: J96.01 Acute respiratory failure with hypoxia (principal); J15.9 Unspecified bacterial pneumonia; Z99.81 Dependence on supplemental oxygen; I10 Essential (primary) hypertension; K21.9 Gastro-esophageal reflux disease without esophagitis; U09.9 Post COVID-19 condition, unspecified; Z79.01 Long term (current) use of anticoagulants; Z79.899 Other long term (current) drug therapy
CPT/HCPCS: 36415; 71275; 80048; 80053; 83735; 83880; 84145; 84484; 85025; 85610; 85730; 86140; 87449; 87641; 93005; 94002; 97802; 99285; J7050; Q9967; A4216